=== PATIENT | female | born 1945 | race Two or more races ===

== ENCOUNTER 2024-10-22 09:58 | Inpatient (IN) | payer MEDICARE, MEDICAID, SELFPAY ==
[2024-10-22] VITALS (29 sets, daily range): BP systolic 129–184; BP diastolic 71–139; PULSE 87–117; RESP 15–30; TEMP 36.6–37.1; O2SAT 85–99; BMI 28.1
--- NOTE | 2024-10-22 10:35 | PD.EDRME ---
Rapid Medical Screening Exam [facility] Arrival date/time: 10/22/24 09:58 79-year-old female with a history of hyperlipidemia, hypertension, type 2 diabetes presents to the emergency room with a chief complaint of generalized weakness fatigue, and bilateral lower extremity pain x 1 week that is progressively gotten worse. I have greeted and performed a focused initial assessment of this patient. A comprehensive ED assessment and evaluation of the patient, analysis of all test results, and completion of the medical decision making process will be conducted by additional ED providers. Chief Complaint: Weakness Vital signs: Vital Signs Temperature 98.5 F 10/22/24 10:28 Pulse Rate 96 10/22/24 10:28 Respiratory Rate 19 10/22/24 10:28 Blood Pressure 184/78 H 10/22/24 10:28 Pulse Oximetry (%) 97 10/22/24 10:28 Oxygen Delivery Method Room Air 10/22/24 10:28 Vital signs reviewed by provider: Yes
[2024-10-22 11:06] LABS: Basophils % (Auto) 0 % (0-2.5); Eosinophils % (Auto) 0 % (0-10); Hematocrit 37.4 % (36.0-46.0); Hemoglobin 13.3 g/dL (12.0-16.0); Immature Granulocytes % (Auto) 1 % (0-0); Immature Granulocytes Auto 0.08 Thou/mm3 (0.00-0.00); Lymphocytes % (Auto) 6 % (10-50); Mean Corpuscular HGB Conc 35.6 g/dl (31.0-37.0); Mean Corpuscular Hemoglobin 27.8 pg (25.0-35.0); Mean Corpuscular Volume 78 fL (80-100); Monocytes # (Auto) 0.6 Thou/mm3 (0.0-0.8); Monocytes % (Auto) 4 % (0-12); Neutrophils # (Auto) 13.8 Thou/mm3 (1.8-7.7); Neutrophils % (Auto) 89 % (37-80); Nucleated Red Blood Cell % 0 /100 WBC (0); Platelet Count 313 Thou/mm3 (140-440); Red Blood Count 4.79 Miln/mm3 (4.00-5.20); White Blood Count 15.5 Thou/mm3 (3.6-11.0)
[2024-10-22 11:23] LABS: B-Type Natriuretic Peptide 54 pg/mL (0-100)
[2024-10-22 11:34] LABS: Alanine Aminotransferase 19 U/L (10-49); Albumin, Serum 4.9 gm/dL (3.4-4.8); Albumin/Globulin Ratio 1.8 (1.2-2.2); Alkaline Phosphatase 66 U/L (46-116); Anion Gap 9 (7-16); Aspartate Amino Transferase 31 U/L (0-34); BUN/Creatinine Ratio 23 Ratio (12-20); Bilirubin,Total 1.2 mg/dL (0.3-1.2); Blood Urea Nitrogen 14 mg/dL (9-23); Calcium 9.5 mg/dL (8.3-10.6); Calcium (Corrected) 9.5 mg/dL (8.5-10.1); Carbon Dioxide 24.7 mMol/L (20.0-31.0); Chloride 76 mMol/L (98-107); Creatinine (Component) 0.6 mg/dL (0.6-1.3); Estimated Creatinine Clearance 69.1 mL/min (>60); Globulin 2.8 gm/dL (2.3-3.5); Glucose 215 mg/dL (74-106); Magnesium 1.1 mg/dL (1.6-2.6); Osmolality,Calculated 230 (275-295); Potassium 4.3 mMol/L (3.4-5.1); Total Protein 7.7 gm/dL (5.7-8.2); Troponin I < 0.020 ng/mL (0.0-0.045); eGFR > 60 See Note
[2024-10-22 11:36] LABS: Sodium 110 mMol/L (136-145)
--- NOTE | 2024-10-22 12:24 | EDNOTE_ITS ---
ED General RME/HPI General Chief complaint: Weakness Stated complaint: WEAKNESS Time Seen by Provider: 10/22/24 12:05 Arrival date/time: 10/22/24 09:58 CC: Lower extremity weakness HPI ongoing for the past 3 days, no prior history of similar events denies fever chills chest pain shortness of breath difficulty breathing. Patient is a history of diabetes hypertension hyperlipidemia. Denies falls or altered level of consciousness. RME / HPI RME / HPI narrative: 10/22/24 09:58 79-year-old female with a history of hyperlipidemia, hypertension, type 2 diabetes presents to the emergency room with a chief complaint of generalized weakness fatigue, and bilateral lower extremity pain x 1 week that is progressively gotten worse. I have greeted and performed a focused initial assessment of this patient. A comprehensive ED assessment and evaluation of the patient, analysis of all test results, and completion of the medical decision making process will be conducted by additional ED providers. Related Data Home Medications ?Medication ?Instructions ?Recorded ?Confirmed amlodipine 5 mg tablet 5 mg PO QDAY 10/22/24 10/22/24 empagliflozin 25 mg tablet 25 mg PO QDAY 10/22/24 10/22/24 (Jardiance) glipizide 5 mg tablet 5 mg PO BID 10/22/24 10/22/24 lisinopril 20 1 tab PO DAILY 10/22/24 10/22/24 mg-hydrochlorothiazide 25 mg tablet meclizine 25 mg chewable tablet 25 mg PO BID PRN Dizziness 10/22/24 10/22/24 metformin 1,000 mg tablet 1,000 mg PO QDAY 10/22/24 10/22/24 montelukast 10 mg tablet 10 mg PO QDAY 10/22/24 10/22/24 sennosides 8.6 mg-docusate sodium 1 tab-cap PO BID PRN Constipation 10/22/24 10/22/24 50 mg tablet (Senna Plus) Allergies Allergy/AdvReac Type Severity Reaction Status Date / Time No Known Allergies Allergy Verified 10/22/24 10:01 Review of Systems Review of Systems Narrative Review of Systems: GEN: No fever, no chills, no weight loss EYES: No discharge, no visual changes, no pain HEENT: No ear pain, no congestion, no sore throat PULM: No shortness of breath, no cough, no congestion CV: No chest pain, no dyspnea on exertion, no palpitations GI: No nausea, no vomiting, no diarrhea, no pain, no constipation : No frequency, no urgency, no dysuria MUSC/SKEL: No joint pain, no back pain SKIN: No rash PSYCH: No hallucinations, no depression HEME/LYMPH: No easy bleeding or bruising tendencies NEURO: + weakness, no headache Past Medical History Social History SMOKING STATUS: Never smoker ED Exam Narrative Physical exam: [General: Not in any acute distress Head normocephalic HEENT: Eyes pupils are PERRLA EOMs are intact all other subsystems of HEENT are within acceptable limits Neck is supple nontender Chest equal chest rise nontender to palpation Respiratory: Clear to auscultation no wheezes crackles or rubs CV: Rate rhythm is regular no murmurs rubs or clicks Abdomen is distended secondary to body habitus soft nontender no masses positive bowel sounds all 4 quadrants Back: No CVA tenderness no spinous process tenderness from cervical spine thoracic and lumbar spine Skin: Intact no petechiae rash induration ulceration or crepitus Extremities: Moving all extremity against resistance cap refill less than 2 seconds neurosensory intact Neuro: Awake alert oriented x3 Glascow coma 15 no focal deficits] Course Quality Measures VTE prophylaxis Orders Category Date Time Status Admit to Inpatient Status Routine Admission 10/22/24 13:05 Active Patient Condition Routine Admission 10/22/24 13:05 Ordered EKG (ED ONLY) *Do not use* NOW Care 10/22/24 10:35 Completed Notify provider NEEDED Care 10/22/24 13:05 Active Saline [Insert IV] NOW Care 10/22/24 12:05 Active Consult to Nephrology Stat Cons 10/22/24 13:08 Ordered EKG (ED Only) Stat Exams 10/22/24 10:35 Ordered B-Type Natriuretic Peptide Stat Lab 10/22/24 10:55 Completed CBC Stat Lab 10/22/24 10:55 Completed Comprehensive Metabolic Panel Stat Lab 10/22/24 10:55 Completed Magnesium Stat Lab 10/22/24 10:55 Completed Partial Thromboplastin Time Stat Lab 10/22/24 10:55 Completed Phosphorous Stat Lab 10/22/24 12:06 Completed Prothrombin Time with INR Stat Lab 10/22/24 10:55 Completed Sodium Q1H Lab 10/22/24 13:08 Ordered Sodium Q1H Lab 10/22/24 14:08 Ordered Sodium Q1H Lab 10/22/24 15:08 Ordered Sodium Q1H Lab 10/22/24 16:08 Ordered Sodium Q1H Lab 10/22/24 17:08 Ordered Sodium Q1H Lab 10/22/24 18:08 Ordered Sodium Q1H Lab 10/22/24 19:08 Ordered Sodium Q1H Lab 10/22/24 20:08 Ordered Sodium Q1H Lab 10/22/24 21:08 Ordered Sodium Q1H Lab 10/22/24 22:08 Ordered Sodium Q1H Lab 10/22/24 23:08 Ordered Sodium Stat Lab 10/22/24 12:06 Completed Troponin I Stat Lab 10/22/24 10:55 Completed Urinalysis Stat Lab 10/22/24 10:35 Ordered Magnesium Sulfate 4 GM Ivpb [Magnesium Sulfate Ivpb] Med 10/22/24 12:06 Active 4 gm in 50 ml IV X1 SODIUM CHLORIDE 3%(Hypertonic) [Hypertonic Saline 3%] 1 Med 10/22/24 13:05 Active ,000 ml Pre-Mixed [Pre-mixed Bag] 1 bag IV X1 hydrALAZINE INJ [Apresoline Inj] Med 10/22/24 12:26 Discontinued 20 mg IV X1 ONE Code Status Routine Oth 10/22/24 13:05 Ordered Vital Signs Vital signs: Vital Signs Temperature 98.5 F 10/22/24 10:28 Pulse Rate 96 10/22/24 10:28 Respiratory Rate 19 10/22/24 10:28 Blood Pressure 184/78 H 10/22/24 10:28 Pulse Oximetry (%) 97 10/22/24 10:28 Oxygen Delivery Method Room Air 10/22/24 10:28 [facility] Patient data External records reviewed:: [facility] previous records Clinical information provided by:: patient and family Social determinants that could affect healthcare access:: none Patient has the following chronic illnesses:: Diabetes hypertension hyperlipidemia How is presenting disease/condition affected by chronic disease/condition?: u neffected by Evaluation data The following diagnostics were reviewed and interpreted by me:: lab results, radiology exam(s) and EKG tracing(s) Lab and/or radiology exams considered but not ordered:: CBC shows mild leukocytosis of 15.5 and H&H of 13.3 and 37.4 respectively platelets of 313 Coags within with acceptable limits CMP shows sodium of 110 potassium of 4.3 chloride of 76, CO2 of 24.7 BUN of 14 creatinine of 0.6 glucose of 215 note: The sodium was confirmed by separate draw at 110. Troponin is negative, BNP is negative Interpretation Summary: Critical low sodium, patient's case discussed with Dr. Wharton, repulping supervisor who agrees to accept the patient for admission. Patient is agreement with this plan. Medications Medications considered but not ordered:: None Medication administrations:: Medication Administration History Magnesium Sulfate (Magnesium Sulfate Ivpb) 4 gm in 50 mls @ 12.5 mls/hr IV X1 ONE Stop: 10/22/24 16:05 Last Admin: 10/22/24 12:49 Dose: 12.5 mls/hr Documented By: GM Sodium Chloride 1,000 ml/ IV (Miscellaneous Supplies) 1,000 mls @ 30 mls/hr IV X1 ONE Stop: 10/23/24 22:24 Discontinued Medications Hydralazine HCl (Hydralazine Inj 20 Mg/Ml Vial) 20 mg IV X1 ONE Stop: 10/22/24 12:27 Last Admin: 10/22/24 12:40 Dose: 20 mg Documented By: None Consultations Consultation(s) initiated? (list below): No Diagnosis Differential Diagnosis ED Complaint MDM: Hyponatremia electrolyte imbalance dehydration Most likely diagnosis given after review of the tests above:: Acute hyponatremia Admission Indicated Admission indicated?: indicated Explain why admission is indicated or not indicated:: Requires further medical management Admission Request Was there a request for admission?: No Disposition Plan Disposition Plan: Admit Medical Decision Making Differential Diagnosis Differential Diagnosis: Hyponatremia electrolyte imbalance dehydration Lab Data 10/22/24 10:55 10/22/24 12:06 Labs: Lab Results 10/22/24 10/22/24 Range/Units 10:55 12:06 WBC 15.5 H (3.6-11.0) Thou/mm3 RBC 4.79 (4.00-5.20) Miln/mm3 Hgb 13.3 (12.0-16.0) g/dL Hct 37.4 (36.0-46.0) % MCV 78 L (80-100) fL MCH 27.8 (25.0-35.0) pg MCHC 35.6 (31.0-37.0) g/dl RDW Std Deviation 35.0 L (36.4-46.3) fL Plt Count 313 (140-440) Thou/mm3 Neut % (Auto) 89 H (37-80) % Lymph % (Auto) 6 L (10-50) % [place] % (Auto) 4 (0-12) % Eos % (Auto) 0 (0-10) % Baso % (Auto) 0 (0-2.5) % Neut # (Auto) 13.8 H (1.8-7.7) Thou/mm3 Lymph # (Auto) 1.0 (1.0-4.8) Thou/mm3 [place] # (Auto) 0.6 (0.0-0.8) Thou/mm3 Eos # (Auto) 0.0 (0.0-0.5) Thou/mm3 Baso # (Auto) 0.0 (0.0-0.2) Thou/mm3 Immature Gran # (Auto) 0.08 H (0.00-0.00) Thou/mm3 Absolute Nucleated RBC 0.00 (0.00-0.00) Thou/mm3 Immature Gran % 1 H (0-0) % Nucleated RBC % 0 (0) /100 WBC PT 11.5 (9.0-12.2) Seconds INR 1.1 (0.9-1.3) APTT 25.5 (22.0-36.0) Seconds Sodium 110 L* 110 L* (136-145) mMol/L Potassium 4.3 (3.4-5.1) mMol/L Chloride 76 L* (98-107) mMol/L Carbon Dioxide 24.7 (20.0-31.0) mMol/L Anion Gap 9 (7-16) BUN 14 (9-23) mg/dL Creatinine 0.6 (0.6-1.3) mg/dL Estim Creat Clear Calc 69.1 (>60) mL/min eGFR > 60 (60 - ) See Note BUN/Creatinine Ratio 23 H (12-20) Ratio Glucose 215 H (74-106) mg/dL Calculated Osmolality 230 L (275-295) Calcium 9.5 (8.3-10.6) mg/dL Corrected Calcium 9.5 (8.5-10.1) mg/dL Phosphorus 2.8 (2.4-5.1) mg/dL Magnesium 1.1 L (1.6-2.6) mg/dL Total Bilirubin 1.2 (0.3-1.2) mg/dL AST 31 (0-34) U/L ALT 19 (10-49) U/L Alkaline Phosphatase 66 (46-116) U/L Troponin I < 0.020 (0.0-0.045) ng/mL B-Natriuretic Peptide 54 (0-100) pg/mL Total Protein 7.7 (5.7-8.2) gm/dL Albumin 4.9 H (3.4-4.8) gm/dL Globulin 2.8 (2.3-3.5) gm/dL Albumin/Globulin Ratio 1.8 (1.2-2.2) Discharge Plan Plan Patient Disposition: Admit Acute Care w/in Hospital Patient condition on transfer: Stable Prescriptions/Referrals Prescriptions/Med Rec: No Action sennosides-docusate sodium [Senna Plus] 8.6-50 mg Tablet 1 tab-cap PO BID PRN (Reason: Constipation) amlodipine 5 mg Tablet 5 mg PO QDAY metformin 1,000 mg Tablet 1,000 mg PO QDAY Rx Instructions: take with meal lisinopril-hydrochlorothiazide 20-25 mg Tablet 1 tab PO DAILY montelukast 10 mg Tablet 10 mg PO QDAY glipizide 5 mg Tablet 5 mg PO BID meclizine 25 mg Tablet,Chewable 25 mg PO BID PRN (Reason: Dizziness) Jardiance 25 mg Tablet 25 mg PO QDAY Referrals: Heri Roberts MD [Primary Care Provider] - In 1 week Problem List Clinical Impression: Acute hyponatremia Patient/Caregiver Discharge Instructions Print Language: Uzbek Stand Alone Forms: Lesly Award Info., Patient Portal Info Letter PA/PROPERTY MAINTENANCE SUPERVISOR Supervising Physician PA/PROPERTY MAINTENANCE SUPERVISOR Supervising Physician: Ousmane Guajardo ENP
[2024-10-22] MEDS: hydrALAZINE INJ 20 MG/ML VIAL IV (12:40)
[2024-10-22] MEDS: Magnesium Sulfate 4 GM Ivpb 4 GM/50 ML BAG IV (12:49)
[2024-10-22 12:56] LABS: Phosphorous 2.8 mg/dL (2.4-5.1)
[2024-10-22 12:58] LABS: Sodium 110 mMol/L (136-145)
[2024-10-22 13:00] LABS: INR 1.1 (0.9-1.3); Partial Thromboplastin Time 25.5 Seconds (22.0-36.0); Prothrombin Time 11.5 Seconds (9.0-12.2)
--- NOTE | 2024-10-22 13:00 | PC.NURSE ---
Dr. Wharton at bedside assessing and talking to pt.
--- NOTE | 2024-10-22 13:13 | PC.NURSE ---
Pt's daughter, Sherrie Gallegos,
[2024-10-22] MEDS: SODIUM CHLORIDE 3%(Hypertonic) 500 ML in PRE-MIXED 1 BAG 30 ML IV (13:33)
--- NOTE | 2024-10-22 13:46 | PC.NURSE ---
SPOKE TO DR. NGUYEN AMD MADE AWARE PT STARTING TO TREMBLE AND REPORTS FEELING HOT. SYMPTOMS STARTED AROUND THIS TIME. PT HERE FOR CORRECTION OF SEVERE HYPONATREMIA. PER DR. NGUYEN, NO NEW ORDERS AT THIS TIME; PLEASE CONTINUE WITH CORRECTION OF PT'S SODIUM LEVELS.
--- NOTE | 2024-10-22 14:02 | EKG_ITS ---
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
--- NOTE | 2024-10-22 14:05 | XR_ITS ---
Examination: AP chest single view Technique one AP portable sitting chest single view Exam date and time: October 22, 2024 1430 hours INDICATIONS: Shortness of breath today. FINDINGS: No major cardiac enlargement Mild accentuation basilar bronchovascular markings No lobar pneumonia Prominent osteopenia IMPRESSION: Mild basilar bronchitis pattern
[2024-10-22] MEDS: HEPARIN SOD INJ 5000 UNIT/ML VIAL SC (14:34)
--- NOTE | 2024-10-22 14:55 | ESCONSULT_ITS ---
HPI Data of Consult Consult date: 10/22/24 Requesting Physician: Srini Wharton MD Admitting Provider: Srini Wharton MD Attending Provider: Srini Wharton MD Primary Care Provider: Heri Roberts MD Consult Narrative Reason for consult: Severe Hyponatremia History of present illness: HPI: A 79-year-old female patient with past medical history of hypertension, diabetes mellitus, hyperlipidemia, presented to the ED due to generalized weakness for 3 days associated with decreased oral intake and excessive urination. Patient reported that his symptoms started gradually however it kept worsening over time. Today she went to her PCP however as per the daughter he did not do any blood work for the patient for that reason they decided to come to the ED. The daughter denied any episodes of seizure or loss of consciousness denied any fall down however she reported that for the past few days she started to feel dizzy. Denied any vomiting or diarrhea, denied any new medications added to her regimen. Home medications: Metformin, glipizide, lisinopril/hydrochlorothiazide, Jardiance, meclizine, montelukast, senna, amlodipine ED course: At the ED patient blood pressure was elevated 184/78, she was given 1 dose of hydralazine 20 mg IV. Heart rate in the high normal range between 90s and 110s, normal sinus. WBC was elevated 15, hemoglobin stable at 13 and sodium was found to be 110 repeat labs to rule out any artifact also came back 110. Patient was started at the ED with 30 mL/h 3 percent NS. cc:: cc: Srini Wharton MD Review of Systems Review of Systems Systems Reviewed: All systems reviewed, normal except as documented Past Medical History Past Medical History NEUROLOGIC: Negative Neurological Disorders, Cerebrovascular Accident, Transient Ischemic Attacks (TIA), Dementia, Alzheimer's Disease, Parkinson's Disease, Brain Tumor, Meningitis, Seizures, Epilepsy, Multiple Sclerosis, Cerebral Palsy, Amyotrophic Lateral Sclerosis (ALS/Aby Gehrig's), Guillain-Hico Syndrome, Spina Bifida, Paralysis, Peripheral Neuropathy, De Oliveira's Palsy, Subdural Hematoma, Migraine, Head Trauma, Spinal Cord Injury or Traumatic Brain Injury CARDIAC: Positive Hypercholesterolemia and Hypertension; Negative Cardiac Disorders, Myocardial Infarction, Cardiac Arrhythmia, Atrial Fibrillation, Angina, Heart Murmur, Coronary Artery Disease, Atherosclerotic Heart Disease, Peripheral Vascular Disease, Aneurysm, Congestive Heart Failure, Congenital Heart Disease, Valvular Heart Disease, Rheumatic Fever, Cardiomyopathy, Edema, Pericarditis, Cellulitis, Deep Vein Thrombosis, Hypotension or Varicose Veins RESPIRATORY: Positive Asthma; Negative Respiratory Disorders, Chronic Obstructive Pulmonary Disease (COPD), Bronchitis, Emphysema, Pneumonia, Pulmonary Fibrosis, Cystic Fibrosis, Tuberculosis, Pulmonary Embolism, Pulmonary Edema or Sleep Apnea GASTROINTESTINAL: Negative Gastrointestinal Disorders, Cirrhosis, Celiac Disease, Gall Bladder Disease, Gastrointestinal Bleed, Esophageal Varices, Timmons's Esophagus, Colitis, Ulcerative Colitis, Diverticulitis, Diverticulosis, Ulcer, Irritable Bowel, Crohn's Disease, Obstructive Bowel, Hiatal Hernia, Hemorrhoids, Gastroesophageal Reflux Disease, Polyps or Obesity GENITOURINARY: Negative Genitourinary Disorders, Chronic Kidney Disease, Renal Disease, Kidney Stones, Polycystic Kidney Disease, Neurogenic Bladder, Inguinal Hernia, Dialysis or Benign Prostatic Hyperplasia REPRODUCTIVE: Negative Endometriosis, Genital Herpes, Gonorrhea, Pelvic Inflammatory Disease, Previous Pregnancies, Syphilis or Uterine Prolapse MUSCULOSKELETAL: Negative Musculoskeletal Disorders, Muscular Dystrophy, Myasthenia Gravis, Marfan's Syndrome, Arthritis, Rheumatoid Arthritis, Osteoporosis, Degenerative Disk Disease, Gout, Scoliosis, Carpal Tunnel Syndrome, Fibromyalgia, Fractures, Degenerative Joint Disease, Osteomyelitis or Poliovirus ENT: Negative History of ENT Problems, Cataracts, Glaucoma, Blind, Retinal Detachment, Macular Degeneration, Ear Infection, Deafness, Head Trauma or Eye Prosthesis ENDOCRINE: Positive Endocrine Disorders and Diabetes Mellitus Type 2; Negative Diabetes Mellitus Type 1, Hypoglycemia, Ishpeming's Syndrome, [place]ue[place]'s Disease, Hyperthyroidism, Hypothyroidism, Parathyroid Disease, Pituitary Disease, Systemic Lupus Erythematosus, Syndrome of Inappropriate Antidiuretic Hormone (SIADH), Adrenal Disease or Graves' Disease HEMATOLOGIC: Positive Blood Disorders and Anemia; Negative Leukemia, Hemophilia, Thalassemia, Sickle Cell Disease or Clotting Problems PSYCHO/SOCIAL: Positive Depression; Negative Psychiatric Problems, Schizophrenia, Recreational Drug Use, Bipolar Disorder, Anxiety, Behavior Problems, Self-Mutilation, Attention Deficit Disorder, Attention Deficit Hyperactivity Disorder, Post Traumatic Stress Disorder or Eating Disorder OTHER HISTORY: Negative Autoimmune Disease, Autism or Organ Transplant Family History FAMILY HISTORY: Negative Family Psychiatric Problems, Family Respiratory Disorders, Family Cardiac Disorders, Family Gastrointestinal Problems, Family Genitourinary Problems, Family Reproductive Disorders, Family Musculoskeletal Disorders, Family Cancer, Family Surgery or Family Anesthesia Reaction Surgical History SURGICAL: Negative Cardiac Surgery, Open Heart Surgery, Coronary Artery Bypass Graft, Valve Replacement, Vascular Surgery, Coronary Stent, Cardiac Catheterization, Pacemaker, Angiogram, Auto Implanted Cardiovert Defib, Carotid Endarterectomy, Endocrine Surgery, Thyroidectomy, Ear Surgery, Tympanostomy Tube, Eye Surgery, Nose Surgery, Oral Surgery, Tonsillectomy, Adenoidectomy, Cochlear Implant, Corneal Transplant, Throat Surgery, Abdominal Surgery, Tracheostomy, Gastric Bypass Surgery, Gastrostomy, Bowel Surgery, Nephrectomy, Bladder Sling, Ureteral Stent, Transurethral Resection, Joint Replacement, of Shoulder Sx, Amputation, Knee Sx, Hip Sx, Open Reduction Internal Fixation, Arthroscopy, of Back Surgery, Neurologic Surgery, Brain Shunt, Mastectomy, Lumpectomy, Hysterectomy, Tubal Ligation, Section, Organ Transplant or ESWL Social History SMOKING STATUS: Never smoker SECOND HAND EXPOSURE: No Exam Vital Signs Temp Pulse Resp BP Pulse Ox O2 Del Method 98.3 F 104 H 19 154/81 H 97 Room Air 10/22/24 14:05 10/22/24 14:10/22/24 14:10/22/24 14:10/22/24 14:10/22/24 14:05 Narrative Exam GEN: Bengali speaker, AOx3, able to speak full sentences HEENT: NC/AC, oral mucosa moist, neck supple CVS: RRR, S1-S2 present, no murmurs appreciated RESP: Faint wheezing, good air entry bilaterally. GI: soft,non distended, non tender, NBS MSK: Generalized weakness noticed however able to move all 4 limbs, no lower extremity edema SKIN: warm and dry HEAD OF DIGITAL ADVERTISING & INTEGRATION: No focal neurological deficit, CN II-XII and Sensation grossly intact. Results Labs 10/23/24 04:45 10/23/24 19:00 Labs: Short CBC 10/22/24 Range/Units 10:55 WBC 15.5 H (3.6-11.0) Thou/mm3 Hgb 13.3 (12.0-16.0) g/dL Hct 37.4 (36.0-46.0) % Plt Count 313 (140-440) Thou/mm3 BMP 10/22/24 10/22/24 10:55 12:06 Sodium 110 L* 110 L* Potassium 4.3 Chloride 76 L* Carbon Dioxide 24.7 BUN 14 Creatinine 0.6 Glucose 215 H Calcium 9.5 Cardiac Enzymes 10/22/24 Range/Units 10:55 Troponin I < 0.020 (0.0-0.045) ng/mL Liver Function 10/22/24 Range/Units 10:55 Total Bilirubin 1.2 (0.3-1.2) mg/dL AST 31 (0-34) U/L ALT 19 (10-49) U/L Alkaline Phosphatase 66 (46-116) U/L Albumin 4.9 H (3.4-4.8) gm/dL Quality Measures Quality Measures VTE prophylaxis Advance care planning discussed with:: patient and child Medications Home Medications and Allergies Home Medications ?Medication ?Instructions ?Recorded ?Confirmed ?Type amlodipine 5 mg tablet 5 mg PO QDAY 10/22/24 10/22/24 History empagliflozin 25 mg tablet 25 mg PO QDAY 10/22/24 10/22/24 History (Jardiance) glipizide 5 mg tablet 5 mg PO BID 10/22/24 10/22/24 History lisinopril 20 1 tab PO DAILY 10/22/24 10/22/24 History mg-hydrochlorothiazide 25 mg tablet meclizine 25 mg chewable tablet 25 mg PO BID PRN Dizziness 10/22/24 10/22/24 History metformin 1,000 mg tablet 1,000 mg PO QDAY 10/22/24 10/22/24 History montelukast 10 mg tablet 10 mg PO QDAY 10/22/24 10/22/24 History sennosides 8.6 mg-docusate sodium 1 tab-cap PO BID PRN Constipation 10/22/24 10/22/24 History 50 mg tablet (Senna Plus) Allergies Allergy/AdvReac Type Severity Reaction Status Date / Time No Known Allergies Allergy Verified 10/22/24 10:01 Visit Medications Amlodipine Besylate (Amlodipine Besylate 5 Mg Tablet) 5 mg PO QDAY [facility] Stop: 11/22/24 08:59 Dextrose (Dextrose 50%-Water Inj 50 Ml Syringe) 25 ml IV Q15MIN PRN PRN Reason: BG 50-70 responsive npo pt Stop: 11/21/24 14:01 Dextrose (Dextrose 50%-Water Inj 50 Ml Syringe) 50 ml IV Q15MIN PRN PRN Reason: BG <50 OR BG <70 & pt unresponsive Stop: 11/21/24 14:01 Glucagon (Glucagon Inj 1 Mg Vial) 1 mg IM Q15MIN PRN PRN Reason: BG <70, and no IV access Heparin Sodium (Porcine) (Heparin Sod Inj 5000 Unit/Ml Vial) 5,000 unit SC Q12H [facility] Stop: 11/05/24 14:14 Last Admin: 10/22/24 14:34 Dose: 5,000 unit Magnesium Sulfate (Magnesium Sulfate Ivpb) 4 gm in 50 mls @ 12.5 mls/hr IV X1 ONE Stop: 10/22/24 16:05 Last Admin: 10/22/24 12:49 Dose: 12.5 mls/hr Sodium Chloride 500 ml/ IV (Miscellaneous Supplies) 500 mls @ 30 mls/hr IV X1 ONE Stop: 10/23/24 05:44 Last Admin: 10/22/24 13:33 Dose: 30 mls/hr Insulin Human Lispro (Insulin Lispro (Admelog) 1 Unit/0.01 Ml Unit) 0 unit SC [facility]; Protocol Stop: 11/21/24 16:59 Ondansetron HCl (Ondansetron Inj 2 Mg/Ml Inj 2 Ml) 4 mg IV Q6H PRN; Protocol PRN Reason: NAUSEA OR VOMITING Stop: 11/21/24 14:01 Sennosides (Senna/Docusate Sod 1 Tab Tablet) 1 tab PO BID PRN; Protocol PRN Reason: Constipation Stop: 11/21/24 14:06 Discontinued Medications Hydralazine HCl (Hydralazine Inj 20 Mg/Ml Vial) 20 mg IV X1 ONE Stop: 10/22/24 12:27 Last Admin: 10/22/24 12:40 Dose: 20 mg Assessment & Plan Plan Summary:A 79-year-old female patient with past medical history of hypertension, diabetes mellitus, hyperlipidemia, presented to the ED due to generalized weakness for 3 days associated with decreased oral intake and excessive urination. Patient reported that his symptoms started gradually however it kept worsening over time. Patient was admitted to the ICU for severe hyponatremia. Assessment and plan #Generalized body weakness most likely secondary to severe hyponatremia #Severe hypoosmolar hyponatremia #Mild hyperglycemia #Hypomagnesemia On presentation patient was found to have generalized weakness, No neurological symptoms no seizures No signs of fluid overload Sodium level found to be 110 no previous labs in her chart, Blood glucose 215, serum osmolality 230, magnesium level 1.1 Plan ? Agree on starting the patient on hypertonic saline 3% at rate of 30 mL/h, goal of sodium level 116 mEq to be achieved over 24 hrs. - Hold NS 3% if Na level overcorrected and inform MD multimedia production assistant ? Sodium checks every hour ? Hold home medications including hydrochlorothiazide/lisinopril, hold all oral antidiabetic medications including Jardiance ? Neurochecks every 2 hours ? Seizures precautions ? Strict in and out ? Replete other electrolytes as needed #Hyperglycemia #Hypertension urgency #History of diabetes mellitus Plan ? Follow-up with the primary team recommendations. - Patient's plan and care discussed with my attending, Dr. Mili Frank MD Internal Medicine PGY-2 Attending Provider Attestation/Addendum Patient seen and examined with resident physician Dr. Hernandez. Note reviewed, agree with findings and recommendations. Patient presented with severe symptomatic hyponatremia. Hypertonic saline at 40 mL/h started. Will monitor serum sodium every 8 hourly with no more than 6 mEq rise in the next 24 hours. Plan of care discussed with ICU team. Thank you Dr. Wharton for allowing me to participate in the care of Mr. Royal
[2024-10-22 15:06] LABS: Sodium 108 mMol/L (136-145)
[2024-10-22 15:27] LABS: Sodium 108 mMol/L (136-145)
[2024-10-22] MEDS: SODIUM CHLORIDE 3%(Hypertonic) 500 ML in PRE-MIXED 1 BAG 40 ML IV (15:44)
[2024-10-22 17:13] LABS: Sodium 109 mMol/L (136-145)
[2024-10-22 17:15] LABS: Cardiac Risk Estimate 2.5 RATIO (3.7-5.6); Cholesterol 159 mg/dL (132-200); HDL Cholesterol 64 mg/dL (40-60); LDL Cholesterol,Calculated 78 mg/dL (0-130); Triglycerides 87 mg/dL (30-150); Uric Acid 3.1 mg/dL (3.1-7.8)
[2024-10-22] MEDS: INSULIN LISPRO (AdmeLOG) 1 UNIT/0.01 ML UNIT SC ×2 (17:43→20:09)
[2024-10-22] MEDS: hydrALAZINE INJ 20 MG/ML VIAL 15 MG IV (17:46)
[2024-10-22 18:18] LABS: Sodium 111 mMol/L (136-145)
--- NOTE | 2024-10-22 18:44 | ESHP_ITS ---
Documentation for date of: 10/22/24 [facility] History of Present Illness Chief complaint: generalized weakness History of present illness: Patient is 79 years old Estonian-speaking female with past medical history of hypertension, type 2 diabetes mellitus, hyperlipidemia presented to the ED complaining of worsening weakness and dizziness. Patient cannot recall when she started developing the symptoms but it was worsening over time. She reported that she also developed significant thirst and was drinking plenty of water daily, her urine output has significantly increased too. Patient denied any fever, chills, changing in vision or hearing, headache, dysuria symptoms, shortness of breath. Patient denies any falls or trauma. On admission patient hypertensive with blood pressure 184/78 and given hydralazine IV in the ED. Labs showed WBCs 15.5, sodium 110, chloride 76, glucose 215, osmolarity 230, uric acid 3.1, magnesium 1.1, phosphorus 2.8. Troponin I negative. Chest x-ray showed bronchitis pattern. EKG showed sinus tachycardia with RBBB. Urinalysis pending. PMH: hypertension, type 2 diabetes mellitus, hyperlipidemia. PSH: None. SH: Denies smoking tobacco, drink alcohol or using illicit drugs. FH: None. Allergies: NKA Medications: Jardiance, glipizide, lisinopril, hydrochlorothiazide, meclizine, metformin, montelukast, senna plus. Review of Systems Review of Systems Narrative Review of Systems: General: + Increased thirst, generalized weakness. Denies weight loss, fever and chills. HEENT: Denies changes in vision and hearing. Resp: Denies SOB, cough and wheezing. CVS: Denies palpitations and CP. GI: Denies abdominal pain, nausea, vomiting and diarrhea. : + Polyuria. Denies dysuria. MSK: Denies myalgia and joint pain. Denies rash and pruritus. Neuro: + Chronic dizziness. Denies headache and syncope. Psych: Denies recent changes in mood. Denies anxiety and depression. Exam Vital Signs Temp Pulse Resp BP Pulse Ox O2 Del Method 98.8 F 115 H 15 184/139 H 96 Room Air 10/22/24 18:02 10/22/24 18:20 10/22/24 18:20 10/22/24 17:46 10/22/24 18:20 10/22/24 15:00 Narrative Exam Gen: Well-developed and well-nourished elderly female. HEENT: NCAT, PERRLA, EOMI, MMM, anicteric conjunctivae. CVS: normal S1 and S2. Regular tachycardia. No M/R/G. Resp: Decreased breath sounds B/L. No rhonchi, rales, crackles or wheezing. Abd: soft, obese, non-tender, non-distended. BS+ in all 4 quadrants. MSK: Good ROM in BUE & BLE. No edema or rash. Neuro: CN II-XII grossly intact. Strength 5/5 in BUE & BLE. Alert and oriented x3. Psych: appropriate mood and affect. Results: Labs 10/23/24 04:45 10/23/24 03:21 Labs: Short CBC 10/22/24 Range/Units 10:55 WBC 15.5 H (3.6-11.0) Thou/mm3 Hgb 13.3 (12.0-16.0) g/dL Hct 37.4 (36.0-46.0) % Plt Count 313 (140-440) Thou/mm3 BMP 10/22/24 10/22/24 10/22/24 10:55 12:06 14:10 Sodium 110 L* 110 L* 108 L* Potassium 4.3 Chloride 76 L* Carbon Dioxide 24.7 BUN 14 Creatinine 0.6 Glucose 215 H Calcium 9.5 10/22/24 10/22/24 10/22/24 15:03 16:09 17:07 Sodium 108 L* 109 L* 111 L* Potassium Chloride Carbon Dioxide BUN Creatinine Glucose Calcium Cardiac Enzymes 10/22/24 Range/Units 10:55 Troponin I < 0.020 (0.0-0.045) ng/mL Liver Function 10/22/24 Range/Units 10:55 Total Bilirubin 1.2 (0.3-1.2) mg/dL AST 31 (0-34) U/L ALT 19 (10-49) U/L Alkaline Phosphatase 66 (46-116) U/L Albumin 4.9 H (3.4-4.8) gm/dL Quality Measures Quality Measures VTE prophylaxis Advance care planning discussed with:: patient Medications Home Medications and Allergies Home Medications ?Medication ?Instructions ?Recorded ?Confirmed ?Type amlodipine 5 mg tablet 5 mg PO QDAY 10/22/24 10/22/24 History empagliflozin 25 mg tablet 25 mg PO QDAY 10/22/24 10/22/24 History (Jardiance) glipizide 5 mg tablet 5 mg PO BID 10/22/24 10/22/24 History lisinopril 20 1 tab PO DAILY 10/22/24 10/22/24 History mg-hydrochlorothiazide 25 mg tablet meclizine 25 mg chewable tablet 25 mg PO BID PRN Dizziness 10/22/24 10/22/24 History metformin 1,000 mg tablet 1,000 mg PO QDAY 10/22/24 10/22/24 History montelukast 10 mg tablet 10 mg PO QDAY 10/22/24 10/22/24 History sennosides 8.6 mg-docusate sodium 1 tab-cap PO BID PRN Constipation 10/22/24 10/22/24 History 50 mg tablet (Senna Plus) Allergies Allergy/AdvReac Type Severity Reaction Status Date / Time No Known Allergies Allergy Verified 10/22/24 10:01 Visit Medications Amlodipine Besylate (Amlodipine Besylate 5 Mg Tablet) 5 mg PO QDAY [facility] Stop: 11/22/24 08:59 Dextrose (Dextrose 50%-Water Inj 50 Ml Syringe) 25 ml IV Q15MIN PRN PRN Reason: BG 50-70 responsive npo pt Stop: 11/21/24 14:01 Dextrose (Dextrose 50%-Water Inj 50 Ml Syringe) 50 ml IV Q15MIN PRN PRN Reason: BG <50 OR BG <70 & pt unresponsive Stop: 11/21/24 14:01 Glucagon (Glucagon Inj 1 Mg Vial) 1 mg IM Q15MIN PRN PRN Reason: BG <70, and no IV access Heparin Sodium (Porcine) (Heparin Sod Inj 5000 Unit/Ml Vial) 5,000 unit SC Q12H [facility] Stop: 11/05/24 14:14 Last Admin: 10/22/24 14:34 Dose: 5,000 unit Sodium Chloride 500 ml/ IV (Miscellaneous Supplies) 500 mls @ 40 mls/hr IV X1 ONE Stop: 10/23/24 01:48 Last Admin: 10/22/24 15:44 Dose: 40 mls/hr Insulin Human Lispro (Insulin Lispro (Admelog) 1 Unit/0.01 Ml Unit) 0 unit SC [facility]; Protocol Stop: 11/21/24 16:59 Last Admin: 10/22/24 17:43 Dose: 4 unit Ondansetron HCl (Ondansetron Inj 2 Mg/Ml Inj 2 Ml) 4 mg IV Q6H PRN; Protocol PRN Reason: NAUSEA OR VOMITING Stop: 11/21/24 14:01 Sennosides (Senna/Docusate Sod 1 Tab Tablet) 1 tab PO BID PRN; Protocol PRN Reason: Constipation Stop: 11/21/24 14:06 Discontinued Medications Hydralazine HCl (Hydralazine Inj 20 Mg/Ml Vial) 20 mg IV X1 ONE Stop: 10/22/24 12:27 Last Admin: 10/22/24 12:40 Dose: 20 mg Hydralazine HCl (Hydralazine Inj 20 Mg/Ml Vial) 15 mg IV X1 PRN PRN Reason: SBP >180 or DBP >110 Last Admin: 10/22/24 17:46 Dose: 15 mg Magnesium Sulfate (Magnesium Sulfate Ivpb) 4 gm in 50 mls @ 12.5 mls/hr IV X1 ONE Stop: 10/22/24 16:05 Last Admin: 10/22/24 12:49 Dose: 12.5 mls/hr Sodium Chloride 500 ml/ IV (Miscellaneous Supplies) 500 mls @ 30 mls/hr IV X1 ONE Stop: 10/23/24 05:44 Last Admin: 10/22/24 13:33 Dose: 30 mls/hr Assessment & Plan Plan Patient is 79 years old Estonian-speaking female with past medical history of hypertension, type 2 diabetes mellitus, hyperlipidemia presented to the ED complaining of worsening weakness and dizziness, was found to have severe hyponatremia of 110 and was admitted to ICU for further management. Neuro: #Chronic dizziness. Patient has chronic dizziness for many years, reason is unknown, was previously prescribed meclizine. Her dizziness has worsened within the last several weeks. Cardiovascular: #History of hypertension. On admission blood pressure 184/78. Patient given hydralazine 10 mg IV x 1 for hypertension. Plan: -Hydralazine IV as needed. -Home amlodipine was resumed. -Home lisinopril hydrochlorothiazide was held. Respiratory: No active problem. Gastrointestinal: No active problem. Renal: #Severe hypoosmolar hyponatremia. #Hypomagnesemia. On admission sodium 110, potassium 4.3, chloride 76, glucose 215, uric acid 3.1, BUN 14, magnesium 1.1, calculated osmolarity 230. Patient reports polyuria and polydipsia. Patient is on lisinopril hydrochlorothiazide at home. Plan: -Started on hypertonic saline 30 cc/h, increased to 40 cc/h per nephrology recommendation. -Urinalysis, urine osmolarity, electrolytes and creatinine ordered. -Fluid restriction 1.5 L daily. -Lipid panel is ordered. -Strict ROZ. -Nephrology is following. Endocrine: #History of type 2 diabetes mellitus. At home takes Jardiance, glipizide and metformin. On admission glucose 202. Plan: -Medications held. -Started on sliding scale insulin. -Daily Accu-Cheks. -Hypoglycemia protocol in place. -Pending hemoglobin A1c. Infectious Disease: Patient has elevated WBCs of 15.5 on admission, chest x-ray is negative for pneumonia. Patient denied any fever or chills. Urinalysis pending. Hematology/Oncology: No active problem. Diet: Carb consistent diet with fluid restriction 1.5 L. DVT prophylaxis: Heparin. GI prophylaxis: None. Code status: Full code. Disposition: ICU for management of hyponatremia. Plan of care discussed with ICU attending Dr. Wharton. Jonathan Benton MD, PGY 2. Disclaimer: This note was dictated by speech recognition. Minor errors in sharepoint solutions architect may be present due to voice recognition software. Attending Provider Attestation/Addendum Patient seen and examined with above resident, Jonathan Benton MD. I agree with the findings, assessment, and plan of care as documented except for any differences below. Patient presents with weakness/dizziness. Patient found to have severe hyponatremia. No focal neurologic deficits or presence of seizure activity. However serum sodium as low as 108. Will need to be admitted to ICU for close monitoring with serial sodium checks to ensure avoidance of overcorrection and its association with with pontine demyelination. Patient also had significant risk given her age. She appears euvolemic on examination. Will send urine osmolarity and lites to help discern etiology of SIADH versus polydipsia. She reports that she has been drinking large amounts of volume but this is unlikely by itself to lead to such severe hyponatremia. Discussion with nephrology, will start on hypertonic saline with goal to reach 114 to 116 x 11 a.m. tomorrow. Maintain in the ICU until she reaches a serum sodium of 120 consistently. Chest x-ray does not show any intraparenchymal lesion that would lead to SIADH. No evidence or history suggestive of malignancy or paraneoplastic syndrome. Patient notably is on hydrochlorothiazide as a combination pill which may lead to this as well. She has been on meclizine chronically for dizziness though this may be the early manifestation of her hyponatremia. Total critical care time: I personally spent 35 minutes for review of physiologic parameters, directing plan of care throughout the day, coordination of care with other subspecialties. This is exclusive of time spent teaching housestaff or performing any separate billable procedures. Patient continues to require critical care services for severe hyponatremia and remains at risk for further morbidity and mortality associated with rapid neurologic decompensation. Additionally needs close monitoring morning available in the intensive care unit for serial labs to ensure avoidance of overcorrection.
[2024-10-22 18:45] LABS: Sodium 111 mMol/L (136-145)
[2024-10-22 19:33] LABS: Sodium 112 mMol/L (136-145)
[2024-10-22] MEDS: ACETAMINOPHEN 500 MG TABLET 1000 MG PO (19:42)
[2024-10-22] MEDS: MELATONIN 3 MG TABLET PO (20:09)
[2024-10-22 20:33] LABS: Sodium 113 mMol/L (136-145)
[2024-10-22 21:42] LABS: Sodium 113 mMol/L (136-145)
[2024-10-22 22:48] LABS: Collection Type, Urine Clean Catch
[2024-10-22 22:58] LABS: Sodium 114 mMol/L (136-145)
[2024-10-22 23:29] LABS: Chloride,Urine Random 45.4 mMol/L (55.0-125.0); Creatinine,Random Urine 127 mg/dL (30-125); Potassium,Urine Random 55 mMol/L (12-62); Sodium,Urine Random 41.1 mMol/L (20.0-110.0)
[2024-10-23] VITALS (34 sets, daily range): BP systolic 90–177; BP diastolic 55–101; PULSE 77–110; RESP 13–27; TEMP 36.3–37.1; O2SAT 95–99; BMI 27.8
[2024-10-23 00:01] LABS: Sodium 114 mMol/L (136-145)
[2024-10-23 00:17] LABS: Bacteria,Urine 1+; Bilirubin,Urine Negative (Negative); Blood,Urine 3+ (Negative); Budding Yeast,Urine Present; Color,Urine Yellow (Lt Yel-Yel); Glucose, Urine Trace (Negative); Ketones,Urine 2+ (Negative); Leukocyte Esterase,Urine Positive (Negative); Nitrite,Urine Negative (Negative); Protein,Urine 3+ (Neg - Trace); RBC,Urine 505 /hpf (0-3); Specific Gravity,Urine 1.025 (1.001-1.035); Squamous Epithelial Cell,Urine 1 /hpf (0-5); Urobilinogen,Urine Negative mg/dL (0.0-1.0); WBC,Urine 290 /hpf (0-5)
[2024-10-23 00:18] LABS: Clarity,Urine Hazy (Clear/Hazy)
[2024-10-23 01:02] LABS: Sodium 115 mMol/L (136-145)
[2024-10-23 02:18] LABS: Sodium 114 mMol/L (136-145)
[2024-10-23] MEDS: HEPARIN SOD INJ 5000 UNIT/ML VIAL SC ×2 (03:12→13:31)
[2024-10-23 03:22] LABS: Sodium 114 mMol/L (136-145)
[2024-10-23 04:05] LABS: Sodium 115 mMol/L (136-145)
[2024-10-23 05:30] LABS: Basophils % (Auto) 0 % (0-2.5); Eosinophils % (Auto) 0 % (0-10); Hematocrit 33.5 % (36.0-46.0); Hemoglobin 12.2 g/dL (12.0-16.0); Immature Granulocytes % (Auto) 0 % (0-0); Immature Granulocytes Auto 0.03 Thou/mm3 (0.00-0.00); Lymphocytes # (Auto) 1.6 Thou/mm3 (1.0-4.8); Lymphocytes % (Auto) 14 % (10-50); Mean Corpuscular HGB Conc 36.4 g/dl (31.0-37.0); Mean Corpuscular Hemoglobin 27.7 pg (25.0-35.0); Mean Corpuscular Volume 76 fL (80-100); Monocytes # (Auto) 0.9 Thou/mm3 (0.0-0.8); Monocytes % (Auto) 8 % (0-12); Neutrophils # (Auto) 8.9 Thou/mm3 (1.8-7.7); Neutrophils % (Auto) 78 % (37-80); Nucleated Red Blood Cell % 0 /100 WBC (0); Platelet Count 311 Thou/mm3 (140-440); RDW Standard Deviation 34.3 fL (36.4-46.3); White Blood Count 11.5 Thou/mm3 (3.6-11.0)
[2024-10-23 05:57] LABS: Glucose Estimated Average 137 mg/dL (80-131); Hemoglobin A1C 6.4 % Hgb (4.8-6.0)
[2024-10-23 06:16] LABS: Alanine Aminotransferase 15 U/L (10-49); Albumin, Serum 4.1 gm/dL (3.4-4.8); Albumin/Globulin Ratio 1.9 (1.2-2.2); Alkaline Phosphatase 55 U/L (46-116); Anion Gap 11 (7-16); Aspartate Amino Transferase 26 U/L (0-34); BUN/Creatinine Ratio 35 Ratio (12-20); Bilirubin,Total 0.9 mg/dL (0.3-1.2); Blood Urea Nitrogen 14 mg/dL (9-23); Calcium 8.6 mg/dL (8.3-10.6); Calcium (Corrected) 8.6 mg/dL (8.5-10.1); Carbon Dioxide 22.4 mMol/L (20.0-31.0); Chloride 81 mMol/L (98-107); Creatinine (Component) 0.4 mg/dL (0.6-1.3); Estimated Creatinine Clearance 103.2 mL/min (>60); Globulin 2.2 gm/dL (2.3-3.5); Glucose 95 mg/dL (74-106); Magnesium 1.3 mg/dL (1.6-2.6); Osmolality,Calculated 231 (275-295); Phosphorous 2.9 mg/dL (2.4-5.1); Potassium 3.2 mMol/L (3.4-5.1); Total Protein 6.3 gm/dL (5.7-8.2); eGFR > 60 See Note
[2024-10-23 06:35] LABS: Sodium 114 mMol/L (136-145)
[2024-10-23 07:47] LABS: Sodium 113 mMol/L (136-145)
[2024-10-23] MEDS: POTASSIUM CHLORIDE 20 mEq TABCR 40 MEQ PO (08:04)
[2024-10-23] MEDS: Magnesium Sulfate 4 GM Ivpb 4 GM/50 ML BAG IV (08:05)
[2024-10-23] MEDS: SODIUM CHLORIDE 3%(Hypertonic) 500 ML in PRE-MIXED 1 BAG 30 ML IV (08:35)
[2024-10-23] MEDS: amLODIPine BESYLATE 5 MG TABLET PO (08:46)
[2024-10-23 08:59] LABS: Free T4 (Free Thyroxine) 1.71 ng/dL (0.89-1.76); Thyroid Stimulating Hormone 2.99 uIU/mL (0.55-4.78)
[2024-10-23 09:51] LABS: Sodium 114 mMol/L (136-145)
[2024-10-23 09:52] LABS: Sodium 113 mMol/L (136-145)
--- NOTE | 2024-10-23 10:06 | PC.SS ---
CARBONIZER TESTER attempted phone contact with patient's daughter, Sherrie Gallegos . No response.
[2024-10-23] MEDS: TAMSULOSIN HCL 0.4 MG CAPSULE PO (10:41)
--- NOTE | 2024-10-23 11:07 | PC.SS ---
ASSISTANT SPA DIRECTOR conducted bedside contact with the patient conduct initial assessment and to discuss discharge planning. At bedside with patient was granddaughter, Alyssa Gallegos . Patient is Vietnamese speaking. Granddaughter provided information for assessment and discharge planning. Patient resides at home with spouse. Patient does not utilize DME for ambulatory assistance. Patient does not use home oxygen. Patient possesses ability to complete ADL?s independently. Patient?s medical surrogate decision maker is daughter, Sherrie Gallegos . Patient?s PCP is Dr. Roberts, [facility]. The patient does not participate any specialty providers. Patient is diabetic, non-insulin dependent. The patient does not participate with dialysis. Discharge plan is for the patient to return home at the time of discharge. Family will provide transportation on behalf of the patient. No further intervention required at this time, social group worker will be available to address any further concerns. Next of Kin: Sherrie El D/C Plan: Home
[2024-10-23 11:21] LABS: Sodium 114 mMol/L (136-145)
[2024-10-23] MEDS: INSULIN LISPRO (AdmeLOG) 1 UNIT/0.01 ML UNIT SC ×3 (12:09→21:34)
[2024-10-23 12:25] LABS: Sodium 115 mMol/L (136-145)
[2024-10-23 12:26] LABS: Sodium 115 mMol/L (136-145)
--- NOTE | 2024-10-23 13:39 | ESPR_ITS ---
<Statement entered by Livia James DO - 10/23/24 23:02> Senior attestation: Patient was examined and case was reviewed with team including attending physician. Note reviewed, I agree with most of its contents and agree with the patient's care. Sodium noted to improve to 114 this morning, will continue with hypertonic saline today with goal of sodium 120 by /8 morning. MRI head/brain ordered to investigate causes of hyponatremia, such as SIADH/pituitary pathology. Tamsulosin started for urinary retention, melatonin nightly for difficulty sleeping. Livia James DO PGY-3 Documentation for date of: 10/23/24 Subjective Subjective Interval history: Patient is 79 years old [place]-speaking female with past medical history of hypertension, type 2 diabetes mellitus, hyperlipidemia presented to the ED complaining of worsening weakness and dizziness. Patient cannot recall when she started developing the symptoms but it was worsening over time. She reported that she also developed significant thirst and was drinking plenty of water daily, her urine output has significantly increased too. Patient denied any fever, chills, changing in vision or hearing, headache, dysuria symptoms, shortness of breath. Patient denies any falls or trauma. On admission patient hypertensive with blood pressure 184/78 and given hydralazine IV in the ED. Labs showed WBCs 15.5, sodium 110, chloride 76, glucose 215, osmolarity 230, uric acid 3.1, magnesium 1.1, phosphorus 2.8. Troponin I negative. Chest x-ray showed bronchitis pattern. EKG showed sinus tachycardia with RBBB. 10/23/24:Patient seen and examined at bedside, reports no new complaints/symptoms, sodium improved to 114 in 24 hours, correction by 4, within the goal correction rate of 4-6 in 24 hours, will continue to correct with similar goal, anticipated sodium goal 120-122 in a.m. otherwise patient at bedside reported she has been drinking 3 tall bottles of water on a daily basis, using hydrochlorothiazide and empagliflozin at home, urine sodium 41.1, suspicion of hyponatremia in setting of polydipsia and diuretic use. Will continue sodium checks every hour and monitor sodium closely. Patient at bedside does complain of insomnia and depression, reports feeling depressed at times, sad at times and tired most of the day, complains of low energy at home, denies any suicidal/homicidal ideations, will be started on melatonin at bedtime for insomnia. Pending MRI, will continue to monitor patient. Exam Vital Signs Temp Pulse Resp BP Pulse Ox O2 Del Method 98.4 F 88 23 H 158/71 H 96 Room Air 10/23/24 08:00 10/23/24 12:00 10/23/24 12:00 10/23/24 12:00 10/23/24 12:00 10/23/24 06:05 Narrative Exam Gen: Well-developed and well-nourished elderly female. HEENT: NCAT, PERRLA, EOMI, MMM, anicteric conjunctivae. CVS: normal S1 and S2. Regular tachycardia. No M/R/G. Resp: Decreased breath sounds B/L. No rhonchi, rales, crackles or wheezing. Abd: soft, obese, non-tender, non-distended. BS+ in all 4 quadrants. MSK: Good ROM in BUE & BLE. No edema or rash. Neuro: CN II-XII grossly intact. Strength 5/5 in BUE & BLE. Alert and oriented x3. Psych: appropriate mood and affect. Objective Labs 10/26/24 08:45 10/26/24 08:45 Labs: Laboratory Results - last 24 hr 10/22/24 10/22/24 10/22/24 10:55 14:10 15:03 WBC RBC Hgb Hct MCV MCH MCHC RDW Std Deviation Plt Count Neut % (Auto) Lymph % (Auto) [place] % (Auto) Eos % (Auto) Baso % (Auto) Neut # (Auto) Lymph # (Auto) [place] # (Auto) Eos # (Auto) Baso # (Auto) Immature Gran # (Auto) Absolute Nucleated RBC Immature Gran % Nucleated RBC % Sodium 108 L* 108 L* Potassium Chloride Carbon Dioxide Anion Gap BUN Creatinine Estim Creat Clear Calc eGFR BUN/Creatinine Ratio Glucose Estimated Ave Glu mg/dL Hemoglobin A1c Calculated Osmolality Uric Acid 3.1 Calcium Corrected Calcium Phosphorus Magnesium Total Bilirubin AST ALT Alkaline Phosphatase Total Protein Albumin Globulin Albumin/Globulin Ratio Triglycerides 87 Cholesterol 159 LDL Cholesterol, Calc 78 HDL Cholesterol 64 H Cholesterol/HDL Ratio 2.5 L TSH Free T4 Ur Collection Type Urine Color Urine Clarity Urine pH Ur Specific [place] Urine Protein Urine Glucose (UA) Urine Ketones Urine Blood Urine Nitrite Urine Bilirubin Urine Urobilinogen (Auto) Ur Leukocyte Esterase Urine RBC Urine WBC Ur Squamous Epith Cells Urine Bacteria Urine Yeast (Budding) Ur Random Creatinine Ur Random Sodium Ur Random Potassium Ur Random Chloride 10/22/24 10/22/24 10/22/24 16:09 17:07 18:08 WBC RBC Hgb Hct MCV MCH MCHC RDW Std Deviation Plt Count Neut % (Auto) Lymph % (Auto) [place] % (Auto) Eos % (Auto) Baso % (Auto) Neut # (Auto) Lymph # (Auto) [place] # (Auto) Eos # (Auto) Baso # (Auto) Immature Gran # (Auto) Absolute Nucleated RBC Immature Gran % Nucleated RBC % Sodium 109 L* 111 L* 111 L* Potassium Chloride Carbon Dioxide Anion Gap BUN Creatinine Estim Creat Clear Calc eGFR BUN/Creatinine Ratio Glucose Estimated Ave Glu mg/dL Hemoglobin A1c Calculated Osmolality Uric Acid Calcium Corrected Calcium Phosphorus Magnesium Total Bilirubin AST ALT Alkaline Phosphatase Total Protein Albumin Globulin Albumin/Globulin Ratio Triglycerides Cholesterol LDL Cholesterol, Calc HDL Cholesterol Cholesterol/HDL Ratio TSH Free T4 Ur Collection Type Urine Color Urine Clarity Urine pH Ur Specific [place] Urine Protein Urine Glucose (UA) Urine Ketones Urine Blood Urine Nitrite Urine Bilirubin Urine Urobilinogen (Auto) Ur Leukocyte Esterase Urine RBC Urine WBC Ur Squamous Epith Cells Urine Bacteria Urine Yeast (Budding) Ur Random Creatinine Ur Random Sodium Ur Random Potassium Ur Random Chloride 10/22/24 10/22/24 10/22/24 18:49 20:02 21:00 WBC RBC Hgb Hct MCV MCH MCHC RDW Std Deviation Plt Count Neut % (Auto) Lymph % (Auto) [place] % (Auto) Eos % (Auto) Baso % (Auto) Neut # (Auto) Lymph # (Auto) [place] # (Auto) Eos # (Auto) Baso # (Auto) Immature Gran # (Auto) Absolute Nucleated RBC Immature Gran % Nucleated RBC % Sodium 112 L* 113 L* 113 L* Potassium Chloride Carbon Dioxide Anion Gap BUN Creatinine Estim Creat Clear Calc eGFR BUN/Creatinine Ratio Glucose Estimated Ave Glu mg/dL Hemoglobin A1c Calculated Osmolality Uric Acid Calcium Corrected Calcium Phosphorus Magnesium Total Bilirubin AST ALT Alkaline Phosphatase Total Protein Albumin Globulin Albumin/Globulin Ratio Triglycerides Cholesterol LDL Cholesterol, Calc HDL Cholesterol Cholesterol/HDL Ratio TSH Free T4 Ur Collection Type Urine Color Urine Clarity Urine pH Ur Specific [place] Urine Protein Urine Glucose (UA) Urine Ketones Urine Blood Urine Nitrite Urine Bilirubin Urine Urobilinogen (Auto) Ur Leukocyte Esterase Urine RBC Urine WBC Ur Squamous Epith Cells Urine Bacteria Urine Yeast (Budding) Ur Random Creatinine Ur Random Sodium Ur Random Potassium Ur Random Chloride 10/22/24 10/22/24 10/22/24 22:14 22:15 22:17 WBC RBC Hgb Hct MCV MCH MCHC RDW Std Deviation Plt Count Neut % (Auto) Lymph % (Auto) [place] % (Auto) Eos % (Auto) Baso % (Auto) Neut # (Auto) Lymph # (Auto) [place] # (Auto) Eos # (Auto) Baso # (Auto) Immature Gran # (Auto) Absolute Nucleated RBC Immature Gran % Nucleated RBC % Sodium 114 L* Potassium Chloride Carbon Dioxide Anion Gap BUN Creatinine Estim Creat Clear Calc eGFR BUN/Creatinine Ratio Glucose Estimated Ave Glu mg/dL Hemoglobin A1c Calculated Osmolality Uric Acid Calcium Corrected Calcium Phosphorus Magnesium Total Bilirubin AST ALT Alkaline Phosphatase Total Protein Albumin Globulin Albumin/Globulin Ratio Triglycerides Cholesterol LDL Cholesterol, Calc HDL Cholesterol Cholesterol/HDL Ratio TSH Free T4 Ur Collection Type Clean Catch Urine Color Yellow Urine Clarity Hazy Urine pH 6.0 Ur Specific [place] 1.025 Urine Protein 3+ A Urine Glucose (UA) Trace Urine Ketones 2+ A Urine Blood 3+ A Urine Nitrite Negative Urine Bilirubin Negative Urine Urobilinogen (Auto) Negative Ur Leukocyte Esterase Positive Urine RBC 505 H Urine WBC 290 H Ur Squamous Epith Cells 1 Urine Bacteria 1+ A Urine Yeast (Budding) Present A Ur Random Creatinine 127 H Ur Random Sodium 41.1 Ur Random Potassium 55 Ur Random Chloride 45.4 L 10/22/24 10/23/24 10/23/24 23:24 00:32 01:18 WBC RBC Hgb Hct MCV MCH MCHC RDW Std Deviation Plt Count Neut % (Auto) Lymph % (Auto) [place] % (Auto) Eos % (Auto) Baso % (Auto) Neut # (Auto) Lymph # (Auto) [place] # (Auto) Eos # (Auto) Baso # (Auto) Immature Gran # (Auto) Absolute Nucleated RBC Immature Gran % Nucleated RBC % Sodium 114 L* 115 L* 114 L* Potassium Chloride Carbon Dioxide Anion Gap BUN Creatinine Estim Creat Clear Calc eGFR BUN/Creatinine Ratio Glucose Estimated Ave Glu mg/dL Hemoglobin A1c Calculated Osmolality Uric Acid Calcium Corrected Calcium Phosphorus Magnesium Total Bilirubin AST ALT Alkaline Phosphatase Total Protein Albumin Globulin Albumin/Globulin Ratio Triglycerides Cholesterol LDL Cholesterol, Calc HDL Cholesterol Cholesterol/HDL Ratio TSH Free T4 Ur Collection Type Urine Color Urine Clarity Urine pH Ur Specific [place] Urine Protein Urine Glucose (UA) Urine Ketones Urine Blood Urine Nitrite Urine Bilirubin Urine Urobilinogen (Auto) Ur Leukocyte Esterase Urine RBC Urine WBC Ur Squamous Epith Cells Urine Bacteria Urine Yeast (Budding) Ur Random Creatinine Ur Random Sodium Ur Random Potassium Ur Random Chloride 10/23/24 10/23/24 10/23/24 02:29 03:21 04:45 WBC 11.5 H RBC 4.40 Hgb 12.2 Hct 33.5 L MCV 76 L MCH 27.7 MCHC 36.4 RDW Std Deviation 34.3 L Plt Count 311 Neut % (Auto) 78 Lymph % (Auto) 14 [place] % (Auto) 8 Eos % (Auto) 0 Baso % (Auto) 0 Neut # (Auto) 8.9 H Lymph # (Auto) 1.6 [place] # (Auto) 0.9 H Eos # (Auto) 0.0 Baso # (Auto) 0.0 Immature Gran # (Auto) 0.03 H Absolute Nucleated RBC 0.00 Immature Gran % 0 Nucleated RBC % 0 Sodium 114 L* 115 L* 114 L* Potassium 3.2 L D Chloride 81 L Carbon Dioxide 22.4 Anion Gap 11 BUN 14 Creatinine 0.4 L Estim Creat Clear Calc 103.2 eGFR > 60 BUN/Creatinine Ratio [address] H Glucose [address] Glu mg/dL 137 H Hemoglobin A1c 6.4 H Calculated Osmolality 231 L Uric Acid Calcium 8.6 Corrected Calcium 8.6 Phosphorus 2.9 Magnesium 1.3 L Total Bilirubin 0.9 AST 26 ALT 15 Alkaline Phosphatase 55 Total Protein 6.3 Albumin 4.1 D Globulin 2.2 L Albumin/Globulin Ratio 1.9 Triglycerides Cholesterol LDL Cholesterol, Calc HDL Cholesterol Cholesterol/HDL Ratio TSH 2.99 Free T4 1.71 Ur Collection Type Urine Color Urine Clarity Urine pH Ur Specific [place] Urine Protein Urine Glucose (UA) Urine Ketones Urine Blood Urine Nitrite Urine Bilirubin Urine Urobilinogen (Auto) Ur Leukocyte Esterase Urine RBC Urine WBC Ur Squamous Epith Cells Urine Bacteria Urine Yeast (Budding) Ur Random Creatinine Ur Random Sodium Ur Random Potassium Ur Random Chloride 10/23/24 10/23/24 10/23/24 06:09 07:50 08:45 WBC RBC Hgb Hct MCV MCH MCHC RDW Std Deviation Plt Count Neut % (Auto) Lymph % (Auto) [place] % (Auto) Eos % (Auto) Baso % (Auto) Neut # (Auto) Lymph # (Auto) [place] # (Auto) Eos # (Auto) Baso # (Auto) Immature Gran # (Auto) Absolute Nucleated RBC Immature Gran % Nucleated RBC % Sodium 113 L* 114 L* 113 L* Potassium Chloride Carbon Dioxide Anion Gap BUN Creatinine Estim Creat Clear Calc eGFR BUN/Creatinine Ratio Glucose Estimated Ave Glu mg/dL Hemoglobin A1c Calculated Osmolality Uric Acid Calcium Corrected Calcium Phosphorus Magnesium Total Bilirubin AST ALT Alkaline Phosphatase Total Protein Albumin Globulin Albumin/Globulin Ratio Triglycerides Cholesterol LDL Cholesterol, Calc HDL Cholesterol Cholesterol/HDL Ratio TSH Free T4 Ur Collection Type Urine Color Urine Clarity Urine pH Ur Specific [place] Urine Protein Urine Glucose (UA) Urine Ketones Urine Blood Urine Nitrite Urine Bilirubin Urine Urobilinogen (Auto) Ur Leukocyte Esterase Urine RBC Urine WBC Ur Squamous Epith Cells Urine Bacteria Urine Yeast (Budding) Ur Random Creatinine Ur Random Sodium Ur Random Potassium Ur Random Chloride 10/23/24 10/23/24 10/23/24 10:19 11:06 11:55 WBC RBC Hgb Hct MCV MCH MCHC RDW Std Deviation Plt Count Neut % (Auto) Lymph % (Auto) [place] % (Auto) Eos % (Auto) Baso % (Auto) Neut # (Auto) Lymph # (Auto) [place] # (Auto) Eos # (Auto) Baso # (Auto) Immature Gran # (Auto) Absolute Nucleated RBC Immature Gran % Nucleated RBC % Sodium 114 L* 115 L* 115 L* Potassium Chloride Carbon Dioxide Anion Gap BUN Creatinine Estim Creat Clear Calc eGFR BUN/Creatinine Ratio Glucose Estimated Ave Glu mg/dL Hemoglobin A1c Calculated Osmolality Uric Acid Calcium Corrected Calcium Phosphorus Magnesium Total Bilirubin AST ALT Alkaline Phosphatase Total Protein Albumin Globulin Albumin/Globulin Ratio Triglycerides Cholesterol LDL Cholesterol, Calc HDL Cholesterol Cholesterol/HDL Ratio TSH Free T4 Ur Collection Type Urine Color Urine Clarity Urine pH Ur Specific [place] Urine Protein Urine Glucose (UA) Urine Ketones Urine Blood Urine Nitrite Urine Bilirubin Urine Urobilinogen (Auto) Ur Leukocyte Esterase Urine RBC Urine WBC Ur Squamous Epith Cells Urine Bacteria Urine Yeast (Budding) Ur Random Creatinine Ur Random Sodium Ur Random Potassium Ur Random Chloride Quality Measures Quality Measures VTE prophylaxis Advance care planning discussed with:: patient and child Assessment & Plan Assessment Current Active Medications: Generic Name Dose Route Start Last Admin Trade Name Freq PRN Reason Stop Dose Admin Acetaminophen 1,000 mg 10/22/24 19:04 10/22/24 19:42 Acetaminophen 500 Mg Tablet PO 11/21/24 19:03 1,000 mg Q6HR PRN Administration PAIN Amlodipine Besylate 5 mg 10/23/24 09:00 10/23/24 08:46 Amlodipine Besylate 5 Mg Tablet PO 11/22/24 08:59 5 mg QDAY JARETT Administration Dextrose 25 ml 10/22/24 14:02 Dextrose 50%-Water Inj 50 Ml Syringe IV 11/21/24 14:01 Q15MIN PRN BG 50-70 responsive npo pt Dextrose 50 ml 10/22/24 14:02 Dextrose 50%-Water Inj 50 Ml Syringe IV 11/21/24 14:01 Q15MIN PRN BG <50 OR BG <70 & pt unresponsive Glucagon 1 mg 10/22/24 14:02 Glucagon Inj 1 Mg Vial IM Q15MIN PRN BG <70, and no IV access Heparin Sodium (Porcine) 5,000 unit 10/22/24 14:15 10/23/24 13:31 Heparin Sod Inj 5000 Unit/Ml Vial SC 11/05/24 14:14 5,000 unit Q12H JARETT Administration Sodium Chloride 500 ml/ IV 500 mls @ 30 mls/hr 10/23/24 07:48 10/23/24 08:35 Miscellaneous Supplies IV 10/24/24 00:27 30 mls/hr X1 ONE Administration Insulin Human Lispro 0 unit 10/22/24 17:00 10/23/24 12:09 Insulin Lispro (Admelog) 1 Unit/0.01 Ml Unit SC 11/21/24 16:59 2 unit ACHS JARETT Administration Protocol Melatonin 3 mg 10/22/24 21:00 10/22/24 20:09 Melatonin 3 Mg Tablet PO 11/21/24 20:59 3 mg HS JARETT Administration Ondansetron HCl 4 mg 10/22/24 14:02 Ondansetron Inj 2 Mg/Ml Inj 2 Ml IV 11/21/24 14:01 Q6H PRN NAUSEA OR VOMITING Protocol Sennosides 1 tab 10/22/24 14:07 Senna/Docusate Sod 1 Tab Tablet PO 11/21/24 14:06 BID PRN Constipation Protocol Tamsulosin HCl 0.4 mg 10/23/24 10:30 10/23/24 10:41 Tamsulosin Hcl 0.4 Mg Capsule PO 11/22/24 10:29 0.4 mg QDAY JARETT Administration Plan Assessment and Plan: Summary: Patient is 79 years old [place]-speaking female with past medical history of hypertension, type 2 diabetes mellitus, hyperlipidemia presented to the ED complaining of worsening weakness and dizziness, was found to have severe hyponatremia of 110 and was admitted to ICU for further management. Neuro: #Chronic dizziness. Patient has chronic dizziness for many years, reason is unknown, was previously prescribed meclizine. Her dizziness has worsened within the last several weeks. #Depression Patient reports feeling sad at home, complains of anxiety at home, complains of insomnia and feeling depressed at times, not on any antidepressant currently. Will be started on melatonin at bedtime for insomnia today Patient will need outpatient workup with primary care provider, will avoid SSRIs. Cardiovascular: #History of hypertension. On admission blood pressure 184/78. Patient given hydralazine 10 mg IV x 1 for hypertension. Plan: -Hydralazine IV as needed. -Home amlodipine was resumed. -Home lisinopril hydrochlorothiazide was held. Respiratory: No active problem. Gastrointestinal: No active problem. Renal: #Severe hypoosmolar hypochloremic hyponatremia. #Hypokalemia #Hypomagnesemia. On admission sodium 110, potassium 4.3, chloride 76, glucose 215, uric acid 3.1, BUN 14, magnesium 1.1, calculated osmolarity 230. Patient reports polyuria and polydipsia. Patient is on lisinopril hydrochlorothiazide at home. Urine electrolytes show urine creatinine 127, urine sodium 41.1, urine potassium 55, urine chloride 45.4, limited study as was done after patient was given hypertonic saline Plan: -Continue hypertonic saline 40 cc/h -Fluid restriction 1.5 L daily. -Strict ROZ. -Nephrology is following. -Patient complains of oliguria, started on tamsulosin 0.4 mg Endocrine: #History of type 2 diabetes mellitus. At home takes Jardiance, glipizide and metformin. On admission glucose 202. Hemoglobin A1c 6.4 Plan: -Medications held. -Started on sliding scale insulin. -Daily Accu-Cheks. -Hypoglycemia protocol in place. Infectious Disease: #Asymptomatic bacteriuria Urinalysis shows urine protein 3+, ketones 2+, blood 3+, nitrite negative, leukocyte esterase positive Urine RBC 505, urine WBC 290, urine bacteria 1+, yeast positive Patient denies any dysuria Ordered urine culture, possibility of E. coli colonization Hematology/Oncology: No active problem. Diet: Carb consistent diet with fluid restriction 1.5 L. DVT prophylaxis: Heparin. GI prophylaxis: None. Code status: Full code. Disposition: ICU for management of hyponatremia. Plan of care discussed with ICU attending Dr. Wharton and my senior Dr James PGY-3 Sanjuana Pablo PGY1 Attending Provider Attestation/Addendum Patient seen and examined with above resident, Sanjuana Pablo MD. I agree with the findings, assessment, and plan of care as document except for any differences below. Patient with significant hyponatremia with workup ongoing. Continues to have appropriate increase in sodium level with addition of hypertonic saline that is intermittently being used to ensure adequate correction. No significant urine output warranting initiation of DDAVP at this point. Plan to monitor in the ICU until sodium level is greater than 120. Patient without any focal neurologic deficits. She does complain of some urinary retention for which we we will minimize anticholinergic agents and consider bladder scanning with intermittent straight cath or initiation of Flomax for alternate alpha-behzad. Appreciate nephrology's ongoing assistance with evaluation and treatment course. Patient was updated at bedside with plan of care and remains agreeable. Family has not been by at this time for me to update them. Total critical care time: I personally spent 30 minutes for review of physiologic parameters, directing plan of care throughout the day, coordination of care with other subspecialists, and counseling patient at bedside. This is exclusive of time spent teaching housestaff performing any separate billable procedures. Patient continues to require critical care services for severe hyponatremia. She remains at risk for increased morbidity and mortality including demyelination syndrome associated with over rapid correction warranting ongoing close monitoring and care only available in the intensive care unit.
[2024-10-23 14:07] LABS: Sodium 115 mMol/L (136-145)
[2024-10-23 15:20] LABS: Sodium 115 mMol/L (136-145)
[2024-10-23 16:20] LABS: Sodium 114 mMol/L (136-145)
[2024-10-23 17:25] LABS: Sodium 115 mMol/L (136-145)
--- NOTE | 2024-10-23 17:59 | PD.RESPRO ---
Documentation for date of: 10/23/24 Subjective Subjective Interval history: Ms. Royal is a 79-year-old female patient with past medical history of hypertension, diabetes mellitus, hyperlipidemia, presented to the ED due to generalized weakness for 3 days associated with decreased oral intake and excessive urination. Patient reported that his symptoms started gradually however it kept worsening over time. Today she went to her PCP however as per the daughter he did not do any blood work for the patient for that reason they decided to come to the ED. The daughter denied any episodes of seizure or loss of consciousness denied any fall down however she reported that for the past few days she started to feel dizzy. Denied any vomiting or diarrhea, denied any new medications added to her regimen. Home medications: Metformin, glipizide, lisinopril/hydrochlorothiazide, Jardiance, meclizine, montelukast, senna, amlodipine ED course: At the ED patient blood pressure was elevated 184/78, she was given 1 dose of hydralazine 20 mg IV. Heart rate in the high normal range between 90s and 110s, normal sinus. WBC was elevated 15, hemoglobin stable at 13 and sodium was found to be 110 repeat labs to rule out any artifact also came back 110. Patient was started at the ED with 30 mL/h 3 percent NS. 10/23/2024 patient currently seen in ICU. Patient was seen and examined at bedside, denied any new symptoms, no shivering or chills no episodes of seizures or abnormal movements. Sodium level for the past 24 hours was corrected by 5 mEq up to 115, goal for tomorrow is to be corrected up to 122. Sodium checks can be changed from every hours to every 2 hours at this time. Exam Vital Signs Temp Pulse Resp BP Pulse Ox O2 Del Method 97.4 F 91 24 H 145/75 H 98 Room Air 10/23/24 16:01 10/23/24 17:00 10/23/24 17:00 10/23/24 17:10/23/24 17:10/23/24 06:05 Narrative Exam GEN: Greek speaker, AOx3, able to speak full sentences HEENT: NC/AC, oral mucosa moist, neck supple CVS: RRR, S1-S2 present, no murmurs appreciated RESP: Good air entry bilaterally. GI: soft,non distended, non tender, NBS MSK: Generalized weakness noticed however able to move all 4 limbs, no lower extremity edema SKIN: warm and dry GOODWILL REPRESENTATIVE: No focal neurological deficit, CN II-XII and Sensation grossly intact. Objective Labs 10/23/24 04:45 10/23/24 19:00 Labs: Laboratory Results - last 24 hr 10/22/24 10/22/24 10/22/24 17:07 18:08 18:49 WBC RBC Hgb Hct MCV MCH MCHC RDW Std Deviation Plt Count Neut % (Auto) Lymph % (Auto) Osborne % (Auto) Eos % (Auto) Baso % (Auto) Neut # (Auto) Lymph # (Auto) Osborne # (Auto) Eos # (Auto) Baso # (Auto) Immature Gran # (Auto) Absolute Nucleated RBC Immature Gran % Nucleated RBC % Sodium 111 L* 111 L* 112 L* Potassium Chloride Carbon Dioxide Anion Gap BUN Creatinine Estim Creat Clear Calc eGFR BUN/Creatinine Ratio Glucose Estimated Ave Glu mg/dL Hemoglobin A1c Calculated Osmolality Calcium Corrected Calcium Phosphorus Magnesium Total Bilirubin AST ALT Alkaline Phosphatase Total Protein Albumin Globulin Albumin/Globulin Ratio TSH Free T4 Ur Collection Type Urine Color Urine Clarity Urine pH Ur Specific [place] Urine Protein Urine Glucose (UA) Urine Ketones Urine Blood Urine Nitrite Urine Bilirubin Urine Urobilinogen (Auto) Ur Leukocyte Esterase Urine RBC Urine WBC Ur Squamous Epith Cells Urine Bacteria Urine Yeast (Budding) Ur Random Creatinine Ur Random Sodium Ur Random Potassium Ur Random Chloride 10/22/24 10/22/24 10/22/24 20:02 21:00 22:14 WBC RBC Hgb Hct MCV MCH MCHC RDW Std Deviation Plt Count Neut % (Auto) Lymph % (Auto) Osborne % (Auto) Eos % (Auto) Baso % (Auto) Neut # (Auto) Lymph # (Auto) [place] # (Auto) Eos # (Auto) Baso # (Auto) Immature Gran # (Auto) Absolute Nucleated RBC Immature Gran % Nucleated RBC % Sodium 113 L* 113 L* Potassium Chloride Carbon Dioxide Anion Gap BUN Creatinine Estim Creat Clear Calc eGFR BUN/Creatinine Ratio Glucose Estimated Ave Glu mg/dL Hemoglobin A1c Calculated Osmolality Calcium Corrected Calcium Phosphorus Magnesium Total Bilirubin AST ALT Alkaline Phosphatase Total Protein Albumin Globulin Albumin/Globulin Ratio TSH Free T4 Ur Collection Type Urine Color Urine Clarity Urine pH Ur Specific [place] Urine Protein Urine Glucose (UA) Urine Ketones Urine Blood Urine Nitrite Urine Bilirubin Urine Urobilinogen (Auto) Ur Leukocyte Esterase Urine RBC Urine WBC Ur Squamous Epith Cells Urine Bacteria Urine Yeast (Budding) Ur Random Creatinine 127 H Ur Random Sodium 41.1 Ur Random Potassium 55 Ur Random Chloride 45.4 L 10/22/24 10/22/24 10/22/24 22:15 22:17 23:24 WBC RBC Hgb Hct MCV MCH MCHC RDW Std Deviation Plt Count Neut % (Auto) Lymph % (Auto) Osborne % (Auto) Eos % (Auto) Baso % (Auto) Neut # (Auto) Lymph # (Auto) [place]borne # (Auto) Eos # (Auto) Baso # (Auto) Immature Gran # (Auto) Absolute Nucleated RBC Immature Gran % Nucleated RBC % Sodium 114 L* 114 L* Potassium Chloride Carbon Dioxide Anion Gap BUN Creatinine Estim Creat Clear Calc eGFR BUN/Creatinine Ratio Glucose Estimated Ave Glu mg/dL Hemoglobin A1c Calculated Osmolality Calcium Corrected Calcium Phosphorus Magnesium Total Bilirubin AST ALT Alkaline Phosphatase Total Protein Albumin Globulin Albumin/Globulin Ratio TSH Free T4 Ur Collection Type Clean Catch Urine Color Yellow Urine Clarity Hazy Urine pH 6.0 Ur Specific [place] 1.025 Urine Protein 3+ A Urine Glucose (UA) Trace Urine Ketones 2+ A Urine Blood 3+ A Urine Nitrite Negative Urine Bilirubin Negative Urine Urobilinogen (Auto) Negative Ur Leukocyte Esterase Positive Urine RBC 505 H Urine WBC 290 H Ur Squamous Epith Cells 1 Urine Bacteria 1+ A Urine Yeast (Budding) Present A Ur Random Creatinine Ur Random Sodium Ur Random Potassium Ur Random Chloride 10/23/24 10/23/24 10/23/24 00:32 01:18 02:29 WBC RBC Hgb Hct MCV MCH MCHC RDW Std Deviation Plt Count Neut % (Auto) Lymph % (Auto) Osborne % (Auto) Eos % (Auto) Baso % (Auto) Neut # (Auto) Lymph # (Auto) [place] # (Auto) Eos # (Auto) Baso # (Auto) Immature Gran # (Auto) Absolute Nucleated RBC Immature Gran % Nucleated RBC % Sodium 115 L* 114 L* 114 L* Potassium Chloride Carbon Dioxide Anion Gap BUN Creatinine Estim Creat Clear Calc eGFR BUN/Creatinine Ratio Glucose Estimated Ave Glu mg/dL Hemoglobin A1c Calculated Osmolality Calcium Corrected Calcium Phosphorus Magnesium Total Bilirubin AST ALT Alkaline Phosphatase Total Protein Albumin Globulin Albumin/Globulin Ratio TSH Free T4 Ur Collection Type Urine Color Urine Clarity Urine pH Ur Specific [place] Urine Protein Urine Glucose (UA) Urine Ketones Urine Blood Urine Nitrite Urine Bilirubin Urine Urobilinogen (Auto) Ur Leukocyte Esterase Urine RBC Urine WBC Ur Squamous Epith Cells Urine Bacteria Urine Yeast (Budding) Ur Random Creatinine Ur Random Sodium Ur Random Potassium Ur Random Chloride 10/23/24 10/23/24 10/23/24 03:21 04:45 06:09 WBC 11.5 H RBC 4.40 Hgb 12.2 Hct 33.5 L MCV 76 L MCH 27.7 MCHC 36.4 RDW Std Deviation 34.3 L Plt Count 311 Neut % (Auto) 78 Lymph % (Auto) 14 Osborne % (Auto) 8 Eos % (Auto) 0 Baso % (Auto) 0 Neut # (Auto) 8.9 H Lymph # (Auto) 1.6 Osborne # (Auto) 0.9 H Eos # (Auto) 0.0 Baso # (Auto) 0.0 Immature Gran # (Auto) 0.03 H Absolute Nucleated RBC 0.00 Immature Gran % 0 Nucleated RBC % 0 Sodium 115 L* 114 L* 113 L* Potassium 3.2 L D Chloride 81 L Carbon Dioxide 22.4 Anion Gap 11 BUN 14 Creatinine 0.4 L Estim Creat Clear Calc 103.2 eGFR > 60 BUN/Creatinine Ratio [address] H Glucose [address] Glu mg/dL 137 H Hemoglobin A1c 6.4 H Calculated Osmolality 231 L Calcium 8.6 Corrected Calcium 8.6 Phosphorus 2.9 Magnesium 1.3 L Total Bilirubin 0.9 AST 26 ALT 15 Alkaline Phosphatase 55 Total Protein 6.3 Albumin 4.1 D Globulin 2.2 L Albumin/Globulin Ratio 1.9 TSH 2.99 Free T4 1.71 Ur Collection Type Urine Color Urine Clarity Urine pH Ur Specific [place] Urine Protein Urine Glucose (UA) Urine Ketones Urine Blood Urine Nitrite Urine Bilirubin Urine Urobilinogen (Auto) Ur Leukocyte Esterase Urine RBC Urine WBC Ur Squamous Epith Cells Urine Bacteria Urine Yeast (Budding) Ur Random Creatinine Ur Random Sodium Ur Random Potassium Ur Random Chloride 10/23/24 10/23/24 10/23/24 07:50 08:45 10:19 WBC RBC Hgb Hct MCV MCH MCHC RDW Std Deviation Plt Count Neut % (Auto) Lymph % (Auto) [place] % (Auto) Eos % (Auto) Baso % (Auto) Neut # (Auto) Lymph # (Auto) [place] # (Auto) Eos # (Auto) Baso # (Auto) Immature Gran # (Auto) Absolute Nucleated RBC Immature Gran % Nucleated RBC % Sodium 114 L* 113 L* 114 L* Potassium Chloride Carbon Dioxide Anion Gap BUN Creatinine Estim Creat Clear Calc eGFR BUN/Creatinine Ratio Glucose Estimated Ave Glu mg/dL Hemoglobin A1c Calculated Osmolality Calcium Corrected Calcium Phosphorus Magnesium Total Bilirubin AST ALT Alkaline Phosphatase Total Protein Albumin Globulin Albumin/Globulin Ratio TSH Free T4 Ur Collection Type Urine Color Urine Clarity Urine pH Ur Specific [place] Urine Protein Urine Glucose (UA) Urine Ketones Urine Blood Urine Nitrite Urine Bilirubin Urine Urobilinogen (Auto) Ur Leukocyte Esterase Urine RBC Urine WBC Ur Squamous Epith Cells Urine Bacteria Urine Yeast (Budding) Ur Random Creatinine Ur Random Sodium Ur Random Potassium Ur Random Chloride 10/23/24 10/23/24 10/23/24 11:06 11:55 13:15 WBC RBC Hgb Hct MCV MCH MCHC RDW Std Deviation Plt Count Neut % (Auto) Lymph % (Auto) [place] % (Auto) Eos % (Auto) Baso % (Auto) Neut # (Auto) Lymph # (Auto) [place] # (Auto) Eos # (Auto) Baso # (Auto) Immature Gran # (Auto) Absolute Nucleated RBC Immature Gran % Nucleated RBC % Sodium 115 L* 115 L* 115 L* Potassium Chloride Carbon Dioxide Anion Gap BUN Creatinine Estim Creat Clear Calc eGFR BUN/Creatinine Ratio Glucose Estimated Ave Glu mg/dL Hemoglobin A1c Calculated Osmolality Calcium Corrected Calcium Phosphorus Magnesium Total Bilirubin AST ALT Alkaline Phosphatase Total Protein Albumin Globulin Albumin/Globulin Ratio TSH Free T4 Ur Collection Type Urine Color Urine Clarity Urine pH Ur Specific [place] Urine Protein Urine Glucose (UA) Urine Ketones Urine Blood Urine Nitrite Urine Bilirubin Urine Urobilinogen (Auto) Ur Leukocyte Esterase Urine RBC Urine WBC Ur Squamous Epith Cells Urine Bacteria Urine Yeast (Budding) Ur Random Creatinine Ur Random Sodium Ur Random Potassium Ur Random Chloride 10/23/24 10/23/24 10/23/24 14:30 15:42 16:34 WBC RBC Hgb Hct MCV MCH MCHC RDW Std Deviation Plt Count Neut % (Auto) Lymph % (Auto) [place] % (Auto) Eos % (Auto) Baso % (Auto) Neut # (Auto) Lymph # (Auto) [place] # (Auto) Eos # (Auto) Baso # (Auto) Immature Gran # (Auto) Absolute Nucleated RBC Immature Gran % Nucleated RBC % Sodium 115 L* 114 L* 115 L* Potassium Chloride Carbon Dioxide Anion Gap BUN Creatinine Estim Creat Clear Calc eGFR BUN/Creatinine Ratio Glucose Estimated Ave Glu mg/dL Hemoglobin A1c Calculated Osmolality Calcium Corrected Calcium Phosphorus Magnesium Total Bilirubin AST ALT Alkaline Phosphatase Total Protein Albumin Globulin Albumin/Globulin Ratio TSH Free T4 Ur Collection Type Urine Color Urine Clarity Urine pH Ur Specific [place] Urine Protein Urine Glucose (UA) Urine Ketones Urine Blood Urine Nitrite Urine Bilirubin Urine Urobilinogen (Auto) Ur Leukocyte Esterase Urine RBC Urine WBC Ur Squamous Epith Cells Urine Bacteria Urine Yeast (Budding) Ur Random Creatinine Ur Random Sodium Ur Random Potassium Ur Random Chloride Quality Measures Quality Measures VTE prophylaxis Advance care planning discussed with:: patient Assessment & Plan Assessment Current Active Medications: Generic Name Dose Route Start Last Admin Trade Name Freq PRN Reason Stop Dose Admin Acetaminophen 1,000 mg 10/22/24 19:04 10/22/24 19:42 Acetaminophen 500 Mg Tablet PO 11/21/24 19:03 1,000 mg Q6HR PRN Administration PAIN Amlodipine Besylate 5 mg 10/23/24 09:00 10/23/24 08:46 Amlodipine Besylate 5 Mg Tablet PO 11/22/24 08:59 5 mg QDAY JARETT Administration Dextrose 25 ml 10/22/24 14:02 Dextrose 50%-Water Inj 50 Ml Syringe IV 11/21/24 14:01 Q15MIN PRN BG 50-70 responsive npo pt Dextrose 50 ml 10/22/24 14:02 Dextrose 50%-Water Inj 50 Ml Syringe IV 11/21/24 14:01 Q15MIN PRN BG <50 OR BG <70 & pt unresponsive Glucagon 1 mg 10/22/24 14:02 Glucagon Inj 1 Mg Vial IM Q15MIN PRN BG <70, and no IV access Heparin Sodium (Porcine) 5,000 unit 10/22/24 14:15 10/23/24 13:31 Heparin Sod Inj 5000 Unit/Ml Vial SC 11/05/24 14:14 5,000 unit Q12H JARETT Administration Sodium Chloride 500 ml/ IV 500 mls @ 40 mls/hr 10/23/24 17:00 Miscellaneous Supplies IV 10/24/24 05:29 X1 ONE Insulin Human Lispro 0 unit 10/22/24 17:00 10/23/24 12:09 Insulin Lispro (Admelog) 1 Unit/0.01 Ml Unit SC 11/21/24 16:59 2 unit ACHS JARETT Administration Protocol Melatonin 3 mg 10/22/24 21:00 10/22/24 20:09 Melatonin 3 Mg Tablet PO 11/21/24 20:59 3 mg HS JARETT Administration Ondansetron HCl 4 mg 10/22/24 14:02 Ondansetron Inj 2 Mg/Ml Inj 2 Ml IV 11/21/24 14:01 Q6H PRN NAUSEA OR VOMITING Protocol Sennosides 1 tab 10/22/24 14:07 Senna/Docusate Sod 1 Tab Tablet PO 11/21/24 14:06 BID PRN Constipation Protocol Tamsulosin HCl 0.4 mg 10/23/24 10:30 10/23/24 10:41 Tamsulosin Hcl 0.4 Mg Capsule PO 11/22/24 10:29 0.4 mg QDAY JARETT Administration Plan Summary:A 79-year-old female patient with past medical history of hypertension, diabetes mellitus, hyperlipidemia, presented to the ED due to generalized weakness for 3 days associated with decreased oral intake and excessive urination. Patient reported that his symptoms started gradually however it kept worsening over time. Patient was admitted to the ICU for severe hyponatremia. Assessment and plan #Generalized body weakness most likely secondary to severe hyponatremia #Severe hypoosmolar hyponatremia #Mild hyperglycemia #Hypomagnesemia On presentation patient was found to have generalized weakness, No neurological symptoms no seizures No signs of fluid overload Sodium level found to be 110 no previous labs in her chart, Blood glucose 215, serum osmolality 230, magnesium level 1.1 Plan ? Continue hypertonic saline 3% at rate of 30 mL/h, goal of sodium level 122 mEq to be achieved over the next 24 hrs. 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 May change Sodium checks every 2 hours at this time ? Hold home medications including hydrochlorothiazide/lisinopril, hold all oral antidiabetic medications including Jardiance ? Neurochecks every 2 hours ? Seizures precautions ? Strict in and out ? Replete other electrolytes as needed #Hyperglycemia #Hypertension #History of diabetes mellitus Plan ? Follow-up with the primary team recommendations. - Patient's plan and care discussed with my attending, Dr. Mili Frank MD Internal Medicine PGY-2 Attending Provider Attestation/Addendum Patient seen and examined with resident physician Dr. Hernandez. Note reviewed, agree with findings and recommendations. Patient presented with severe symptomatic hyponatremia. Hypertonic saline at 40 mL/h started. Will monitor serum sodium every 2 hours with no more than 6 mEq rise in the next 24 hours. Plan of care discussed with ICU team. Sodium improved from 110-116. Goal 122 in the next 24 hours.
[2024-10-23] MEDS: SODIUM CHLORIDE 3%(Hypertonic) 500 ML in PRE-MIXED 1 BAG 40 ML IV (18:13)
[2024-10-23 18:19] LABS: Sodium 116 mMol/L (136-145)
[2024-10-23 19:43] LABS: Sodium 117 mMol/L (136-145)
[2024-10-23] MEDS: MELATONIN 3 MG TABLET PO (21:34)
[2024-10-23 21:54] LABS: Sodium 120 mMol/L (136-145)
[2024-10-23 23:23] LABS: Sodium 121 mMol/L (136-145)
[2024-10-24] VITALS (17 sets, daily range): BP systolic 127–176; BP diastolic 56–108; PULSE 80–108; RESP 8–30; TEMP 36.1–37.1; O2SAT 95–99
--- NOTE | 2024-10-24 | XR_ITS ---
Examination: MRI brain without intravenous contrast. Date and time of exam: October 24, 2024 2023 hrs. Indications: Generalized weakness lower extremity pain beginning one week ago getting worse Technique: Multiple axial and sagittal images of the brain obtained. Siemens high-resolution 1.5 Dianna short bore scanners utilized. Sagittal sections, T1-weighted, TR 500, TE 14, are performed. Axial sections proton-density and T2-weighted have been obtained. Inversion recovery axial images, TR 9, 260, TE 111, TI 2500. Diffusion weighted images, axial sections, TR 4800, TE 128, B value 1000 Axial sections, ADC map, TR 4800, TE 128 Findings: Enlargement of the sella turcica is not present. The optic chiasm and infundibular are not remarkable. Prepontine and interpeduncular cisterns are not enlarged. There is no localized enlargement of the medulla or apple. Fourth ventricle and cerebellar tonsils appear normal in position. No subacute area of hemorrhage density is seen. Mass in the cerebellopontine angle region is not evident. Globes symmetrical. Orbital musculature including medial lateral rectus muscles do not exhibit abnormality. Diffusion-weighted images demonstrate no focus of restricted diffusion. Increased white matter signal mild Mass effect upon the ventricular system is not identified. Impression: Negative for acute hemorrhage mass effect or midline shift No acute infarct Mild chronic microvascular white matter change No pituitary macroadenoma
[2024-10-24 01:11] LABS: Sodium 121 mMol/L (136-145)
[2024-10-24] MEDS: hydrOXYzine HCL 25 MG TABLET PO (01:59)
[2024-10-24 03:38] LABS: Sodium 121 mMol/L (136-145)
[2024-10-24 06:16] LABS: Basophils % (Auto) 0 % (0-2.5); Eosinophils % (Auto) 0 % (0-10); Hematocrit 33.1 % (36.0-46.0); Hemoglobin 11.9 g/dL (12.0-16.0); Immature Granulocytes % (Auto) 0 % (0-0); Immature Granulocytes Auto 0.02 Thou/mm3 (0.00-0.00); Lymphocytes # (Auto) 1.4 Thou/mm3 (1.0-4.8); Lymphocytes % (Auto) 17 % (10-50); Mean Corpuscular Hemoglobin 27.9 pg (25.0-35.0); Mean Corpuscular Volume 78 fL (80-100); Monocytes # (Auto) 0.8 Thou/mm3 (0.0-0.8); Monocytes % (Auto) 9 % (0-12); Neutrophils # (Auto) 5.9 Thou/mm3 (1.8-7.7); Neutrophils % (Auto) 73 % (37-80); Nucleated Red Blood Cell % 0 /100 WBC (0); Platelet Count 288 Thou/mm3 (140-440); RDW Standard Deviation 35.6 fL (36.4-46.3); Red Blood Count 4.27 Miln/mm3 (4.00-5.20); White Blood Count 8.1 Thou/mm3 (3.6-11.0)
[2024-10-24 06:59] LABS: Alanine Aminotransferase 15 U/L (10-49); Albumin, Serum 3.9 gm/dL (3.4-4.8); Albumin/Globulin Ratio 1.6 (1.2-2.2); Alkaline Phosphatase 58 U/L (46-116); Anion Gap 7 (7-16); Aspartate Amino Transferase 27 U/L (0-34); BUN/Creatinine Ratio 30 Ratio (12-20); Bilirubin,Total 0.6 mg/dL (0.3-1.2); Blood Urea Nitrogen 12 mg/dL (9-23); Calcium 8.6 mg/dL (8.3-10.6); Calcium (Corrected) 8.7 mg/dL (8.5-10.1); Carbon Dioxide 22.8 mMol/L (20.0-31.0); Chloride 91 mMol/L (98-107); Creatinine (Component) 0.4 mg/dL (0.6-1.3); Estimated Creatinine Clearance 103.2 mL/min (>60); Globulin 2.4 gm/dL (2.3-3.5); Glucose 142 mg/dL (74-106); Magnesium 1.5 mg/dL (1.6-2.6); Osmolality,Calculated 245 (275-295); Phosphorous 1.9 mg/dL (2.4-5.1); Potassium 3.9 mMol/L (3.4-5.1); Sodium 121 mMol/L (136-145); Total Protein 6.3 gm/dL (5.7-8.2); eGFR > 60 See Note
[2024-10-24] MEDS: INSULIN LISPRO (AdmeLOG) 1 UNIT/0.01 ML UNIT SC ×4 (07:29→21:29)
[2024-10-24 07:53] LABS: Sodium 121 mMol/L (136-145)
[2024-10-24] MEDS: SODIUM CHLORIDE 1 GM TABLET PO ×2 (08:43→21:29)
[2024-10-24] MEDS: TAMSULOSIN HCL 0.4 MG CAPSULE PO (08:43)
[2024-10-24] MEDS: Magnesium Sulfate 4 GM Ivpb 4 GM/50 ML BAG IV (08:43)
[2024-10-24] MEDS: HEPARIN SOD INJ 5000 UNIT/ML VIAL SC ×2 (08:44→20:17)
[2024-10-24] MEDS: POLYETHYLENE GLYCOL 17 GM PACKET PO (08:44)
[2024-10-24] MEDS: NAPH,KPH MBDB 1 PACKET (1.5 GM) PO ×2 (08:44→20:17)
[2024-10-24] MEDS: amLODIPine BESYLATE 5 MG TABLET 10 MG PO (08:44)
[2024-10-24 10:40] LABS: Sodium 121 mMol/L (136-145)
[2024-10-24 12:32] LABS: Sodium 121 mMol/L (136-145)
--- NOTE | 2024-10-24 13:30 | PC.SS ---
Update: Patient has been downgraded from ICU.
--- NOTE | 2024-10-24 14:21 | PD.RESPRO ---
Documentation for date of: 10/24/24 Subjective Subjective Interval history: Ms. Royal is a 79-year-old female patient with past medical history of hypertension, diabetes mellitus, hyperlipidemia, presented to the ED due to generalized weakness for 3 days associated with decreased oral intake and excessive urination. Patient reported that his symptoms started gradually however it kept worsening over time. Today she went to her PCP however as per the daughter he did not do any blood work for the patient for that reason they decided to come to the ED. The daughter denied any episodes of seizure or loss of consciousness denied any fall down however she reported that for the past few days she started to feel dizzy. Denied any vomiting or diarrhea, denied any new medications added to her regimen. Home medications: Metformin, glipizide, lisinopril/hydrochlorothiazide, Jardiance, meclizine, montelukast, senna, amlodipine ED course: At the ED patient blood pressure was elevated 184/78, she was given 1 dose of hydralazine 20 mg IV. Heart rate in the high normal range between 90s and 110s, normal sinus. WBC was elevated 15, hemoglobin stable at 13 and sodium was found to be 110 repeat labs to rule out any artifact also came back 110. Patient was started at the ED with 30 mL/h 3 percent NS. 10/23/2024 patient currently seen in ICU. Patient was seen and examined at bedside, denied any new symptoms, no shivering or chills no episodes of seizures or abnormal movements. Sodium level for the past 24 hours was corrected by 5 mEq up to 115, goal for tomorrow is to be corrected up to 122. Sodium checks can be changed from every hours to every 2 hours at this time. 10/24/2023 patient was seen and examined at bedside. Patient denied any new symptoms. Her sodium continue to improve and at this time her sodium level is 121. Will hold on the hypertonic saline at this time and will start the patient on sodium tablets 1 g twice daily. We can change the sodium checks and instead of every 2 hours to every 4 hours at this time. Exam Vital Signs Temp Pulse Resp BP Pulse Ox O2 Del Method 98.0 F 102 H 16 168/81 H 96 Room Air 10/24/24 08:00 10/24/24 12:00 10/24/24 11:00 10/24/24 11:00 10/24/24 11:00 10/24/24 11:00 Narrative Exam GEN: [place] speaker, AOx3, able to speak full sentences HEENT: NC/AC, oral mucosa moist, neck supple CVS: RRR, S1-S2 present, no murmurs appreciated RESP: Good air entry bilaterally. GI: soft,non distended, non tender, NBS MSK: Generalized weakness noticed however able to move all 4 limbs, no lower extremity edema SKIN: warm and dry COVERER: No focal neurological deficit, CN II-XII and Sensation grossly intact. Objective Labs 10/25/24 03:15 10/25/24 03:15 Labs: Laboratory Results - last 24 hr 10/23/24 10/23/24 10/23/24 14:30 15:42 16:34 WBC RBC Hgb Hct MCV MCH MCHC RDW Std Deviation Plt Count Neut % (Auto) Lymph % (Auto) [place] % (Auto) Eos % (Auto) Baso % (Auto) Neut # (Auto) Lymph # (Auto) [place] # (Auto) Eos # (Auto) Baso # (Auto) Immature Gran # (Auto) Absolute Nucleated RBC Immature Gran % Nucleated RBC % Sodium 115 L* 114 L* 115 L* Potassium Chloride Carbon Dioxide Anion Gap BUN Creatinine Estim Creat Clear Calc eGFR BUN/Creatinine Ratio Glucose Calculated Osmolality Calcium Corrected Calcium Phosphorus Magnesium Total Bilirubin AST ALT Alkaline Phosphatase Total Protein Albumin Globulin Albumin/Globulin Ratio 10/23/24 10/23/24 10/23/24 17:36 19:00 21:03 WBC RBC Hgb Hct MCV MCH MCHC RDW Std Deviation Plt Count Neut % (Auto) Lymph % (Auto) [place] % (Auto) Eos % (Auto) Baso % (Auto) Neut # (Auto) Lymph # (Auto) [place] # (Auto) Eos # (Auto) Baso # (Auto) Immature Gran # (Auto) Absolute Nucleated RBC Immature Gran % Nucleated RBC % Sodium 116 L* 117 L* 120 L Potassium Chloride Carbon Dioxide Anion Gap BUN Creatinine Estim Creat Clear Calc eGFR BUN/Creatinine Ratio Glucose Calculated Osmolality Calcium Corrected Calcium Phosphorus Magnesium Total Bilirubin AST ALT Alkaline Phosphatase Total Protein Albumin Globulin Albumin/Globulin Ratio 10/23/24 10/24/24 10/24/24 22:56 00:53 03:12 WBC RBC Hgb Hct MCV MCH MCHC RDW Std Deviation Plt Count Neut % (Auto) Lymph % (Auto) [place] % (Auto) Eos % (Auto) Baso % (Auto) Neut # (Auto) Lymph # (Auto) [place] # (Auto) Eos # (Auto) Baso # (Auto) Immature Gran # (Auto) Absolute Nucleated RBC Immature Gran % Nucleated RBC % Sodium 121 L 121 L 121 L Potassium Chloride Carbon Dioxide Anion Gap BUN Creatinine Estim Creat Clear Calc eGFR BUN/Creatinine Ratio Glucose Calculated Osmolality Calcium Corrected Calcium Phosphorus Magnesium Total Bilirubin AST ALT Alkaline Phosphatase Total Protein Albumin Globulin Albumin/Globulin Ratio 10/24/24 10/24/24 10/24/24 05:20 06:45 10:00 WBC 8.1 RBC 4.27 Hgb 11.9 L Hct 33.1 L MCV 78 L MCH 27.9 MCHC 36.0 RDW Std Deviation 35.6 L Plt Count 288 Neut % (Auto) 73 Lymph % (Auto) 17 [place] % (Auto) 9 Eos % (Auto) 0 Baso % (Auto) 0 Neut # (Auto) 5.9 Lymph # (Auto) 1.4 [place] # (Auto) 0.8 Eos # (Auto) 0.0 Baso # (Auto) 0.0 Immature Gran # (Auto) 0.02 H Absolute Nucleated RBC 0.00 Immature Gran % 0 Nucleated RBC % 0 Sodium 121 L 121 L 121 L Potassium 3.9 D Chloride 91 L Carbon Dioxide 22.8 Anion Gap 7 BUN 12 Creatinine 0.4 L Estim Creat Clear Calc 103.2 eGFR > 60 BUN/Creatinine Ratio 30 H Glucose 142 H Calculated Osmolality 245 L Calcium 8.6 Corrected Calcium 8.7 Phosphorus 1.9 L Magnesium 1.5 L Total Bilirubin 0.6 AST 27 ALT 15 Alkaline Phosphatase 58 Total Protein 6.3 Albumin 3.9 Globulin 2.4 Albumin/Globulin Ratio 1.6 10/24/24 11:38 WBC RBC Hgb Hct MCV MCH MCHC RDW Std Deviation Plt Count Neut % (Auto) Lymph % (Auto) [place] % (Auto) Eos % (Auto) Baso % (Auto) Neut # (Auto) Lymph # (Auto) [place] # (Auto) Eos # (Auto) Baso # (Auto) Immature Gran # (Auto) Absolute Nucleated RBC Immature Gran % Nucleated RBC % Sodium 121 L Potassium Chloride Carbon Dioxide Anion Gap BUN Creatinine Estim Creat Clear Calc eGFR BUN/Creatinine Ratio Glucose Calculated Osmolality Calcium Corrected Calcium Phosphorus Magnesium Total Bilirubin AST ALT Alkaline Phosphatase Total Protein Albumin Globulin Albumin/Globulin Ratio Quality Measures Quality Measures VTE prophylaxis Advance care planning discussed with:: patient Assessment & Plan Assessment Current Active Medications: Generic Name Dose Route Start Last Admin Trade Name Barbara PRN Reason Stop Dose Admin Acetaminophen 1,000 mg 10/22/24 19:04 10/22/24 19:42 Acetaminophen 500 Mg Tablet PO 11/21/24 19:03 1,000 mg Q6HR PRN Administration PAIN Amlodipine Besylate 10 mg 10/24/24 09:00 10/24/24 08:44 Amlodipine Besylate 5 Mg Tablet PO 11/23/24 08:59 10 mg QDAY JARETT Administration Dextrose 25 ml 10/22/24 14:02 Dextrose 50%-Water Inj 50 Ml Syringe IV 11/21/24 14:01 Q15MIN PRN BG 50-70 responsive npo pt Dextrose 50 ml 10/22/24 14:02 Dextrose 50%-Water Inj 50 Ml Syringe IV 11/21/24 14:01 Q15MIN PRN BG <50 OR BG <70 & pt unresponsive Glucagon 1 mg 10/22/24 14:02 Glucagon Inj 1 Mg Vial IM Q15MIN PRN BG <70, and no IV access Heparin Sodium (Porcine) 5,000 unit 10/24/24 09:00 10/24/24 08:44 Heparin Sod Inj 5000 Unit/Ml Vial SC 11/07/24 08:59 5,000 unit Q12HR JARETT Administration Insulin Human Lispro 0 unit 10/22/24 17:00 10/24/24 11:56 Insulin Lispro (Admelog) 1 Unit/0.01 Ml Unit SC 11/21/24 16:59 4 unit ACHS JARETT Administration Protocol Melatonin 3 mg 10/22/24 21:00 10/23/24 21:34 Melatonin 3 Mg Tablet PO 11/21/24 20:59 3 mg HS JARETT Administration Ondansetron HCl 4 mg 10/22/24 14:02 Ondansetron Inj 2 Mg/Ml Inj 2 Ml IV 11/21/24 14:01 Q6H PRN NAUSEA OR VOMITING Protocol Polyethylene Glycol 17 gm 10/24/24 09:00 10/24/24 08:44 Polyethylene Glycol 17 Gm Packet PO 11/23/24 08:59 17 gm QDAY JARETT Administration Potassium Phos/Sodium Phos 1 packet 10/24/24 09:00 10/24/24 08:44 [facility] Mbdb 1 Packet (1.5 Gm) PO 10/24/24 21:01 1 packet BID JARETT Administration Sennosides 1 tab 10/22/24 14:07 Senna/Docusate Sod 1 Tab Tablet PO 11/21/24 14:06 BID PRN Constipation Protocol Sodium Chloride 1 gm 10/24/24 09:00 10/24/24 08:43 Sodium Chloride 1 Gm Tablet PO 11/23/24 08:59 1 gm BID JARETT Administration Tamsulosin HCl 0.4 mg 10/23/24 10:30 10/24/24 08:43 Tamsulosin Hcl 0.4 Mg Capsule PO 11/22/24 10:29 0.4 mg QDAY JARETT Administration Plan Summary:A 79-year-old female patient with past medical history of hypertension, diabetes mellitus, hyperlipidemia, presented to the ED due to generalized weakness for 3 days associated with decreased oral intake and excessive urination. Patient reported that his symptoms started gradually however it kept worsening over time. Patient was admitted to the ICU for severe hyponatremia. Assessment and plan #Generalized body weakness most likely secondary to severe hyponatremia #Severe hypoosmolar hyponatremia #Mild hyperglycemia #Hypomagnesemia On presentation patient was found to have generalized weakness, No neurological symptoms no seizures No signs of fluid overload Sodium level found to be 110 no previous labs in her chart, Blood glucose 215, serum osmolality 230, magnesium level 1.1 Plan ?Switch from hypertonic saline to sodium tablets 1 g twice daily ? May change Sodium checks every 4 hours at this time ? Hold home medications including hydrochlorothiazide/lisinopril, hold all oral antidiabetic medications including Jardiance ? Neurochecks every shift ? Seizures precautions ? Strict in and out ? Replete other electrolytes as needed #Hyperglycemia #Hypertension #History of diabetes mellitus Plan ? Follow-up with the primary team recommendations. - Patient's plan and care discussed with my attending, Dr. Mili Frank MD Internal Medicine PGY-2 Attending Provider Attestation/Addendum Patient seen and examined with resident physician Dr. Hernandez. Note reviewed, agree with findings and recommendations. Patient presented with severe symptomatic hyponatremia. Hypertonic saline at 40 mL/h started. Will monitor serum sodium every 2 hours with no more than 6 mEq rise in the next 24 hours. Plan of care discussed with ICU team. 10/24Sodium improved from 115-122. Off hypertonic saline. Goal 126 in the next 24 hours. Add salt tablets. No need for hypertonic saline. Patient clinically stable. Will be downgraded.
--- NOTE | 2024-10-24 14:57 | PD.RESEVENT ---
Documentation for date of: 10/24/24 Event Note Event Note: Signout received 10/24/2024 79 years old Citizen [place]-speaking female with past medical history of hypertension, type 2 diabetes mellitus, hyperlipidemia presented to the ED complaining of worsening weakness and dizziness. Patient was admitted to ICU due to severe hyponatremia admission sodium was 110. Patient was started on hypertonic saline with adequate correction of sodium levels. At this time sodium is 121, will be started on salt tablets and downgraded to the floors. Hospitalist team aware and will resume care on 10/25/2024. Edward Roberts MD PGY-1
[2024-10-24 15:39] LABS: Sodium 123 mMol/L (136-145)
--- NOTE | 2024-10-24 16:07 | ESPR_ITS ---
<Statement entered by Livia James DO - 10/24/24 22:19> Senior attestation: Patient was examined and case was reviewed with team including attending physician. Note reviewed, I agree with most of its contents and agree with the patient's care. Sodium noted to improve to 121 today, hypertonic saline was stopped overnight. Nephrology team following, has advised salt tablets BID with fluid restriction. Patient will be downgraded to medical floors starting on 10/25/2024, advise continued sodium monitoring at q4 hours, MRI head/brain remains pending, and physical therapy evaluation. Livia James DO PGY-3 Documentation for date of: 10/24/24 Subjective Subjective Interval history: Patient is 79 years old Angolan-speaking female with past medical history of hypertension, type 2 diabetes mellitus, hyperlipidemia presented to the ED complaining of worsening weakness and dizziness. Patient cannot recall when she started developing the symptoms but it was worsening over time. She reported that she also developed significant thirst and was drinking plenty of water daily, her urine output has significantly increased too. Patient denied any fever, chills, changing in vision or hearing, headache, dysuria symptoms, shortness of breath. Patient denies any falls or trauma. On admission patient hypertensive with blood pressure 184/78 and given hydralazine IV in the ED. Labs showed WBCs 15.5, sodium 110, chloride 76, glucose 215, osmolarity 230, uric acid 3.1, magnesium 1.1, phosphorus 2.8. Troponin I negative. Chest x-ray showed bronchitis pattern. EKG showed sinus tachycardia with RBBB. 10/23/24:Patient seen and examined at bedside, reports no new complaints/symptoms, sodium improved to 114 in 24 hours, correction by 4, within the goal correction rate of 4-6 in 24 hours, will continue to correct with similar goal, anticipated sodium goal 120-122 in a.m. otherwise patient at bedside reported she has been drinking 3 tall bottles of water on a daily basis, using hydrochlorothiazide and empagliflozin at home, urine sodium 41.1, suspicion of hyponatremia in setting of polydipsia and diuretic use. Will continue sodium checks every hour and monitor sodium closely. Patient at bedside does complain of insomnia and depression, reports feeling depressed at times, sad at times and tired most of the day, complains of low energy at home, denies any suicidal/homicidal ideations, will be started on melatonin at bedtime for insomnia. Pending MRI, will continue to monitor patient. 10/24/24: Patient seen and examined at bedside, overnight was given hydroxyzine for anxiety, patient sodium has improved remarkably, sodium this morning 121, case discussed with nephrology patient started on salt tablets twice daily, will continue fluid restriction, patient otherwise complains of dizziness bedside testing for BPPV negative, patient does use meclizine at home. Patient complains of insomnia, depression will be started on mirtazapine, will continue to monitor sodium every 4 hours, goal sodium tomorrow 125-127, pending MRI, patient is stable for downgrade to floors. Hospitalist team will resume care for patient in the morning. Pending physical therapy. Exam Vital Signs Temp Pulse Resp BP Pulse Ox O2 Del Method 98.0 F 102 H 16 168/81 H 96 Room Air 10/24/24 08:00 10/24/24 12:00 10/24/24 11:00 10/24/24 11:00 10/24/24 11:00 10/24/24 11:00 Narrative Exam Gen: Well-developed and well-nourished elderly female. HEENT: NCAT, PERRLA, EOMI, MMM, anicteric conjunctivae. CVS: normal S1 and S2. Regular tachycardia. No M/R/G. Resp: Decreased breath sounds B/L. No rhonchi, rales, crackles or wheezing. Abd: soft, obese, non-tender, non-distended. BS+ in all 4 quadrants. MSK: Good ROM in BUE & BLE. No edema or rash. Neuro: CN II-XII grossly intact. Strength 5/5 in BUE & BLE. Alert and oriented x3. Psych: appropriate mood and affect. Objective Labs 10/25/24 03:15 10/25/24 03:15 Labs: Laboratory Results - last 24 hr 10/23/24 10/23/24 10/23/24 15:42 16:34 17:36 WBC RBC Hgb Hct MCV MCH MCHC RDW Std Deviation Plt Count Neut % (Auto) Lymph % (Auto) [place] % (Auto) Eos % (Auto) Baso % (Auto) Neut # (Auto) Lymph # (Auto) [place] # (Auto) Eos # (Auto) Baso # (Auto) Immature Gran # (Auto) Absolute Nucleated RBC Immature Gran % Nucleated RBC % Sodium 114 L* 115 L* 116 L* Potassium Chloride Carbon Dioxide Anion Gap BUN Creatinine Estim Creat Clear Calc eGFR BUN/Creatinine Ratio Glucose Calculated Osmolality Calcium Corrected Calcium Phosphorus Magnesium Total Bilirubin AST ALT Alkaline Phosphatase Total Protein Albumin Globulin Albumin/Globulin Ratio 10/23/24 10/23/24 10/23/24 19:00 21:03 22:56 WBC RBC Hgb Hct MCV MCH MCHC RDW Std Deviation Plt Count Neut % (Auto) Lymph % (Auto) [place] % (Auto) Eos % (Auto) Baso % (Auto) Neut # (Auto) Lymph # (Auto) [place] # (Auto) Eos # (Auto) Baso # (Auto) Immature Gran # (Auto) Absolute Nucleated RBC Immature Gran % Nucleated RBC % Sodium 117 L* 120 L 121 L Potassium Chloride Carbon Dioxide Anion Gap BUN Creatinine Estim Creat Clear Calc eGFR BUN/Creatinine Ratio Glucose Calculated Osmolality Calcium Corrected Calcium Phosphorus Magnesium Total Bilirubin AST ALT Alkaline Phosphatase Total Protein Albumin Globulin Albumin/Globulin Ratio 10/24/24 10/24/24 10/24/24 00:53 03:12 05:20 WBC 8.1 RBC 4.27 Hgb 11.9 L Hct 33.1 L MCV 78 L MCH 27.9 MCHC 36.0 RDW Std Deviation 35.6 L Plt Count 288 Neut % (Auto) 73 Lymph % (Auto) 17 [place] % (Auto) 9 Eos % (Auto) 0 Baso % (Auto) 0 Neut # (Auto) 5.9 Lymph # (Auto) 1.4 [place] # (Auto) 0.8 Eos # (Auto) 0.0 Baso # (Auto) 0.0 Immature Gran # (Auto) 0.02 H Absolute Nucleated RBC 0.00 Immature Gran % 0 Nucleated RBC % 0 Sodium 121 L 121 L 121 L Potassium 3.9 D Chloride 91 L Carbon Dioxide 22.8 Anion Gap 7 BUN 12 Creatinine 0.4 L Estim Creat Clear Calc 103.2 eGFR > 60 BUN/Creatinine Ratio 30 H Glucose 142 H Calculated Osmolality 245 L Calcium 8.6 Corrected Calcium 8.7 Phosphorus 1.9 L Magnesium 1.5 L Total Bilirubin 0.6 AST 27 ALT 15 Alkaline Phosphatase 58 Total Protein 6.3 Albumin 3.9 Globulin 2.4 Albumin/Globulin Ratio 1.6 0110/24/24 10/24/24 06:45 10:00 11:38 WBC RBC Hgb Hct MCV MCH MCHC RDW Std Deviation Plt Count Neut % (Auto) Lymph % (Auto) [place] % (Auto) Eos % (Auto) Baso % (Auto) Neut # (Auto) Lymph # (Auto) [place] # (Auto) Eos # (Auto) Baso # (Auto) Immature Gran # (Auto) Absolute Nucleated RBC Immature Gran % Nucleated RBC % Sodium 121 L 121 L 121 L Potassium Chloride Carbon Dioxide Anion Gap BUN Creatinine Estim Creat Clear Calc eGFR BUN/Creatinine Ratio Glucose Calculated Osmolality Calcium Corrected Calcium Phosphorus Magnesium Total Bilirubin AST ALT Alkaline Phosphatase Total Protein Albumin Globulin Albumin/Globulin Ratio 10/24/24 15:18 WBC RBC Hgb Hct MCV MCH MCHC RDW Std Deviation Plt Count Neut % (Auto) Lymph % (Auto) [place] % (Auto) Eos % (Auto) Baso % (Auto) Neut # (Auto) Lymph # (Auto) [place] # (Auto) Eos # (Auto) Baso # (Auto) Immature Gran # (Auto) Absolute Nucleated RBC Immature Gran % Nucleated RBC % Sodium 123 L Potassium Chloride Carbon Dioxide Anion Gap BUN Creatinine Estim Creat Clear Calc eGFR BUN/Creatinine Ratio Glucose Calculated Osmolality Calcium Corrected Calcium Phosphorus Magnesium Total Bilirubin AST ALT Alkaline Phosphatase Total Protein Albumin Globulin Albumin/Globulin Ratio Quality Measures Quality Measures VTE prophylaxis Advance care planning discussed with:: patient Assessment & Plan Assessment Current Active Medications: Generic Name Dose Route Start Last Admin Trade Name Freq PRN Reason Stop Dose Admin Acetaminophen 1,000 mg 10/22/24 19:04 10/22/24 19:42 Acetaminophen 500 Mg Tablet PO 11/21/24 19:03 1,000 mg Q6HR PRN Administration PAIN Amlodipine Besylate 10 mg 10/24/24 09:00 10/24/24 08:44 Amlodipine Besylate 5 Mg Tablet PO 11/23/24 08:59 10 mg QDAY JARETT Administration Dextrose 25 ml 10/22/24 14:02 Dextrose 50%-Water Inj 50 Ml Syringe IV 11/21/24 14:01 Q15MIN PRN BG 50-70 responsive npo pt Dextrose 50 ml 10/22/24 14:02 Dextrose 50%-Water Inj 50 Ml Syringe IV 11/21/24 14:01 Q15MIN PRN BG <50 OR BG <70 & pt unresponsive Glucagon 1 mg 10/22/24 14:02 Glucagon Inj 1 Mg Vial IM Q15MIN PRN BG <70, and no IV access Heparin Sodium (Porcine) 5,000 unit 10/24/24 09:00 10/24/24 08:44 Heparin Sod Inj 5000 Unit/Ml Vial SC 11/07/24 08:59 5,000 unit Q12HR JARETT Administration Insulin Human Lispro 0 unit 10/22/24 17:00 10/24/24 11:56 Insulin Lispro (Admelog) 1 Unit/0.01 Ml Unit SC 11/21/24 16:59 4 unit ACHS JARETT Administration Protocol Melatonin 3 mg 10/22/24 21:00 10/23/24 21:34 Melatonin 3 Mg Tablet PO 11/21/24 20:59 3 mg HS JARETT Administration Ondansetron HCl 4 mg 10/22/24 14:02 Ondansetron Inj 2 Mg/Ml Inj 2 Ml IV 11/21/24 14:01 Q6H PRN NAUSEA OR VOMITING Protocol Polyethylene Glycol 17 gm 10/24/24 09:00 10/24/24 08:44 Polyethylene Glycol 17 Gm Packet PO 11/23/24 08:59 17 gm QDAY JARETT Administration Potassium Phos/Sodium Phos 1 packet 10/24/24 09:00 10/24/24 08:44 [facility] Mbdb 1 Packet (1.5 Gm) PO 10/24/24 21:01 1 packet BID JARETT Administration Sennosides 1 tab 10/22/24 14:07 Senna/Docusate Sod 1 Tab Tablet PO 11/21/24 14:06 BID PRN Constipation Protocol Sodium Chloride 1 gm 10/24/24 09:00 10/24/24 08:43 Sodium Chloride 1 Gm Tablet PO 11/23/24 08:59 1 gm BID AJRETT Administration Tamsulosin HCl 0.4 mg 10/23/24 10:30 10/24/24 08:43 Tamsulosin Hcl 0.4 Mg Capsule PO 11/22/24 10:29 0.4 mg QDAY JARETT Administration Plan Assessment and Plan: Summary: Patient is 79 years old [place]olan-speaking female with past medical history of hypertension, type 2 diabetes mellitus, hyperlipidemia presented to the ED complaining of worsening weakness and dizziness, was found to have severe hyponatremia of 110 and was admitted to ICU for further management. Neuro: #Chronic dizziness. Patient has chronic dizziness for many years, reason is unknown, was previously prescribed meclizine. Her dizziness has worsened within the last several weeks. #Depression Patient reports feeling sad at home, complains of anxiety at home, complains of insomnia and feeling depressed at times, not on any antidepressant currently. Will be started on melatonin at bedtime for insomnia today Plan Patient started on mirtazapine daily Continue melatonin at bedtime Cardiovascular: #History of hypertension. On admission blood pressure 184/78. Patient given hydralazine 10 mg IV x 1 for hypertension. Plan: -Hydralazine IV as needed. -Home amlodipine dose of 5 mg p.o. daily, increased amlodipine to 10 mg daily -Home lisinopril hydrochlorothiazide was held. Consider resuming lisinopril if patient is hypertensive. -Recommended discontinuing hydrochlorothiazide on discharge Respiratory: No active problem. Gastrointestinal: No active problem. Renal: #Severe hypoosmolar hypochloremic hyponatremia. #Hypokalemia #Hypomagnesemia. On admission sodium 110, potassium 4.3, chloride 76, glucose 215, uric acid 3.1, BUN 14, magnesium 1.1, calculated osmolarity 230. Patient reports polyuria and polydipsia. Patient is on lisinopril hydrochlorothiazide at home. Urine electrolytes show urine creatinine 127, urine sodium 41.1, urine potassium 55, urine chloride 45.4, limited study as was done after patient was given hypertonic saline Plan: -Started salt tablets twice daily -Fluid restriction 1.5 L daily. -Strict ROZ. -Nephrology is following. -Patient complains of oliguria, started on tamsulosin 0.4 mg -Follow-up with skull splitter outpatient -Sodium check every 4 hours -Discontinue hydrochlorothiazide Endocrine: #History of type 2 diabetes mellitus. At home takes Jardiance, glipizide and metformin. On admission glucose 202. Hemoglobin A1c 6.4 Plan: -Medications held. -Started on sliding scale insulin. -Daily Accu-Cheks. -Hypoglycemia protocol in place. Infectious Disease: #Asymptomatic bacteriuria Urinalysis shows urine protein 3+, ketones 2+, blood 3+, nitrite negative, leukocyte esterase positive Urine RBC 505, urine WBC 290, urine bacteria 1+, yeast positive Patient denies any dysuria Ordered urine culture, possibility of E. coli colonization Hematology/Oncology: No active problem. Diet: Carb consistent diet with fluid restriction 1.5 L. DVT prophylaxis: Heparin. GI prophylaxis: None. Code status: Full code. Disposition: Downgraded to telemetry, hospitalist team will resume care in a.m. Plan of care discussed with ICU attending Dr. Wharton and my senior Dr James PGY-3 Sanjuana Pablo PGY1 Attending Provider Attestation/Addendum Patient seen and examined with above resident, Sanjuana Pablo MD. I agree with the findings, assessment, plan of care as documented except for any differences below. Patient continues to have some improvement in sodium. Will discontinuing hypertonic saline as the staff did yesterday afternoon once achieving goal. Patient remains at appropriate rate of correction of 0.5 mEq every hour. Patient achieved goal of being above 120 this morning and will be transition to medicine bethea for ongoing management. Underlying etiology remains elusive and is likely multifactorial in combination of polydipsia, SIADH for which further workup needs to be done, as well as diuretic use in the form of combination therapy with hydrochlorothiazide. Patient without any neurologic deficits and no evidence of seizure. Her risk for this as significantly reduced and given the rate of correction and a controlled setting risk of demyelination has been limited. Patient can continue to have serial sodiums check until she normaliz in the coming days. Nephrology has been following in the assisted greatly with the care of the patient, appreciated. Also notably is having urinary retention, minimize any anticholinergic agents. Diabetes management with insulin while hospitalized. Patient and family updated at bedside. Total critical care time: I personally spent 35 minutes for review of physiologic parameters, directing plan of care throughout the day, coordination of care with other subspecialties, and counseling patient/family at bedside. This is exclusive of time spent teaching housestaff performing any separate billable procedures. Patient continues to require critical care services for close monitoring of severe hyponatremia warranting ongoing management only billable the intensive care unit due to frequency of lab checks and neurologic precautions.
[2024-10-24] MEDS: MIRTAZAPINE 15 MG TABLET PO (17:17)
[2024-10-24 19:13] LABS: Sodium 122 mMol/L (136-145)
[2024-10-24] MEDS: MELATONIN 3 MG TABLET PO (20:17)
[2024-10-24 23:25] LABS: Sodium 126 mMol/L (136-145)
[2024-10-25] VITALS (8 sets, daily range): BP systolic 121–142; BP diastolic 64–85; PULSE 83–101; RESP 14–19; TEMP 35.9–36.4; O2SAT 93–98; BMI 28.9
[2024-10-25 03:22] LABS: Basophils # (Auto) 0.1 Thou/mm3 (0.0-0.2); Basophils % (Auto) 1 % (0-2.5); Eosinophils # (Auto) 0.1 Thou/mm3 (0.0-0.5); Eosinophils % (Auto) 1 % (0-10); Hemoglobin 11.5 g/dL (12.0-16.0); Immature Granulocytes % (Auto) 1 % (0-0); Immature Granulocytes Auto 0.04 Thou/mm3 (0.00-0.00); Lymphocytes # (Auto) 1.8 Thou/mm3 (1.0-4.8); Lymphocytes % (Auto) 23 % (10-50); Mean Corpuscular HGB Conc 35.9 g/dl (31.0-37.0); Mean Corpuscular Volume 78 fL (80-100); Monocytes # (Auto) 0.8 Thou/mm3 (0.0-0.8); Monocytes % (Auto) 10 % (0-12); Neutrophils # (Auto) 5.3 Thou/mm3 (1.8-7.7); Neutrophils % (Auto) 66 % (37-80); Nucleated Red Blood Cell % 0 /100 WBC (0); Platelet Count 281 Thou/mm3 (140-440); RDW Standard Deviation 37.2 fL (36.4-46.3)
[2024-10-25 03:44] LABS: Alanine Aminotransferase 16 U/L (10-49); Albumin, Serum 3.8 gm/dL (3.4-4.8); Albumin/Globulin Ratio 1.7 (1.2-2.2); Alkaline Phosphatase 56 U/L (46-116); Anion Gap 6 (7-16); Aspartate Amino Transferase 20 U/L (0-34); BUN/Creatinine Ratio 33 Ratio (12-20); Bilirubin,Total 0.4 mg/dL (0.3-1.2); Blood Urea Nitrogen 13 mg/dL (9-23); Calcium 8.6 mg/dL (8.3-10.6); Calcium (Corrected) 8.8 mg/dL (8.5-10.1); Carbon Dioxide 25.1 mMol/L (20.0-31.0); Chloride 95 mMol/L (98-107); Creatinine (Component) 0.4 mg/dL (0.6-1.3); Estimated Creatinine Clearance 103.2 mL/min (>60); Globulin 2.2 gm/dL (2.3-3.5); Glucose 172 mg/dL (74-106); Magnesium 1.8 mg/dL (1.6-2.6); Osmolality,Calculated 257 (275-295); Phosphorous 3.1 mg/dL (2.4-5.1); Potassium 3.9 mMol/L (3.4-5.1); Sodium 126 mMol/L (136-145); eGFR > 60 See Note
[2024-10-25] MEDS: INSULIN LISPRO (AdmeLOG) 1 UNIT/0.01 ML UNIT SC ×4 (07:46→20:04)
[2024-10-25 08:23] LABS: Sodium 126 mMol/L (136-145)
[2024-10-25] MEDS: amLODIPine BESYLATE 5 MG TABLET 10 MG PO (09:04)
[2024-10-25] MEDS: MIRTAZAPINE 15 MG TABLET PO (09:05)
[2024-10-25] MEDS: INSULIN GLARGINE (Lantus) 5 UNIT/0.05 ML (PER 5 UNITS) 10 UNIT SC (09:05)
[2024-10-25] MEDS: TAMSULOSIN HCL 0.4 MG CAPSULE PO (09:05)
[2024-10-25] MEDS: POLYETHYLENE GLYCOL 17 GM PACKET PO (09:05)
[2024-10-25] MEDS: HEPARIN SOD INJ 5000 UNIT/ML VIAL SC ×2 (09:05→20:03)
[2024-10-25] MEDS: SODIUM CHLORIDE 1 GM TABLET PO ×2 (09:05→20:03)
--- NOTE | 2024-10-25 09:58 | ESPR_ITS ---
Documentation for date of: 10/25/24 Subjective Subjective Interval history: Ms. Royal is a 79-year-old female patient with past medical history of hypertension, diabetes mellitus, hyperlipidemia, presented to the ED due to generalized weakness for 3 days associated with decreased oral intake and excessive urination. Patient reported that his symptoms started gradually however it kept worsening over time. Today she went to her PCP however as per the daughter he did not do any blood work for the patient for that reason they decided to come to the ED. The daughter denied any episodes of seizure or loss of consciousness denied any fall down however she reported that for the past few days she started to feel dizzy. Denied any vomiting or diarrhea, denied any new medications added to her regimen. Home medications: Metformin, glipizide, lisinopril/hydrochlorothiazide, Jardiance, meclizine, montelukast, senna, amlodipine ED course: At the ED patient blood pressure was elevated 184/78, she was given 1 dose of hydralazine 20 mg IV. Heart rate in the high normal range between 90s and 110s, normal sinus. WBC was elevated 15, hemoglobin stable at 13 and sodium was found to be 110 repeat labs to rule out any artifact also came back 110. Patient was started at the ED with 30 mL/h 3 percent NS. 10/23/2024 patient currently seen in ICU. Patient was seen and examined at bedside, denied any new symptoms, no shivering or chills no episodes of seizures or abnormal movements. Sodium level for the past 24 hours was corrected by 5 mEq up to 115, goal for tomorrow is to be corrected up to 122. Sodium checks can be changed from every hours to every 2 hours at this time. 10/24/2024 patient was seen and examined at bedside. Patient denied any new symptoms. Her sodium continue to improve and at this time her sodium level is 121. Will hold on the hypertonic saline at this time and will start the patient on sodium tablets 1 g twice daily. We can change the sodium checks and instead of every 2 hours to every 4 hours at this time. 10/25/2024 patient was seen and examined at bedside. Denied any new symptoms. Was lying in bed comfortably. Vitally patient is stable. Her sodium persistently at 126 for the past 12 hours on salt tablets 1 g twice daily. As soon as the patient sodium goes above 128 she is cleared to be discharged from our standpoint, patient will need to hold hydrochlorothiazide and Jardiance as it may be the reason that she developed hyponatremia and the primary team has to find a substitute for the patient. Exam Vital Signs Temp Pulse Resp BP Pulse Ox O2 Del Method 97.3 F 97 19 142/85 H 96 Room Air 10/25/24 08:00 10/25/24 09:04 10/25/24 08:00 10/25/24 09:04 10/25/24 08:00 10/25/24 08:00 Objective Labs 10/26/24 08:45 10/26/24 08:45 Labs: Laboratory Results - last 24 hr 10/22/24 10/24/24 10/24/24 22:14 10:00 11:38 WBC RBC Hgb Hct MCV MCH MCHC RDW Std Deviation Plt Count Neut % (Auto) Lymph % (Auto) [place] % (Auto) Eos % (Auto) Baso % (Auto) Neut # (Auto) Lymph # (Auto) [place] # (Auto) Eos # (Auto) Baso # (Auto) Immature Gran # (Auto) Absolute Nucleated RBC Immature Gran % Nucleated RBC % Sodium 121 L 121 L Potassium Chloride Carbon Dioxide Anion Gap BUN Creatinine Estim Creat Clear Calc eGFR BUN/Creatinine Ratio Glucose Calculated Osmolality Calcium Corrected Calcium Phosphorus Magnesium Total Bilirubin AST ALT Alkaline Phosphatase Total Protein Albumin Globulin Albumin/Globulin Ratio Urine Osmolality Cancelled 10/24/24 10/24/24 10/24/24 15:18 18:50 23:06 WBC RBC Hgb Hct MCV MCH MCHC RDW Std Deviation Plt Count Neut % (Auto) Lymph % (Auto) [place] % (Auto) Eos % (Auto) Baso % (Auto) Neut # (Auto) Lymph # (Auto) [place] # (Auto) Eos # (Auto) Baso # (Auto) Immature Gran # (Auto) Absolute Nucleated RBC Immature Gran % Nucleated RBC % Sodium 123 L 122 L 126 L Potassium Chloride Carbon Dioxide Anion Gap BUN Creatinine Estim Creat Clear Calc eGFR BUN/Creatinine Ratio Glucose Calculated Osmolality Calcium Corrected Calcium Phosphorus Magnesium Total Bilirubin AST ALT Alkaline Phosphatase Total Protein Albumin Globulin Albumin/Globulin Ratio Urine Osmolality 10/25/24 10/25/24 03:15 07:30 WBC 8.0 RBC 4.10 Hgb 11.5 L Hct 32.0 L MCV 78 L MCH 28.0 MCHC 35.9 RDW Std Deviation 37.2 Plt Count 281 Neut % (Auto) 66 Lymph % (Auto) 23 [place] % (Auto) 10 Eos % (Auto) 1 Baso % (Auto) 1 Neut # (Auto) 5.3 Lymph # (Auto) 1.8 [place] # (Auto) 0.8 Eos # (Auto) 0.1 Baso # (Auto) 0.1 Immature Gran # (Auto) 0.04 H Absolute Nucleated RBC 0.00 Immature Gran % 1 H Nucleated RBC % 0 Sodium 126 L 126 L Potassium 3.9 Chloride 95 L Carbon Dioxide 25.1 Anion Gap 6 L BUN 13 Creatinine 0.4 L Estim Creat Clear Calc 103.2 eGFR > 60 BUN/Creatinine Ratio 33 H Glucose 172 H Calculated Osmolality 257 L Calcium 8.6 Corrected Calcium 8.8 Phosphorus 3.1 Magnesium 1.8 Total Bilirubin 0.4 AST 20 ALT 16 Alkaline Phosphatase 56 Total Protein 6.0 Albumin 3.8 Globulin 2.2 L Albumin/Globulin Ratio 1.7 Urine Osmolality Quality Measures Quality Measures VTE prophylaxis Advance care planning discussed with:: patient Assessment & Plan Assessment Current Active Medications: Generic Name Dose Route Start Last Admin Trade Name Freq PRN Reason Stop Dose Admin Acetaminophen 1,000 mg 10/22/24 19:04 10/22/24 19:42 Acetaminophen 500 Mg Tablet PO 11/21/24 19:03 1,000 mg Q6HR PRN Administration PAIN Amlodipine Besylate 10 mg 10/24/24 09:00 10/25/24 09:04 Amlodipine Besylate 5 Mg Tablet PO 11/23/24 08:59 10 mg QDAY JARETT Administration Dextrose 25 ml 10/22/24 14:02 Dextrose 50%-Water Inj 50 Ml Syringe IV 11/21/24 14:01 Q15MIN PRN BG 50-70 responsive npo pt Dextrose 50 ml 10/22/24 14:02 Dextrose 50%-Water Inj 50 Ml Syringe IV 11/21/24 14:01 Q15MIN PRN BG <50 OR BG <70 & pt unresponsive Glucagon 1 mg 10/22/24 14:02 Glucagon Inj 1 Mg Vial IM Q15MIN PRN BG <70, and no IV access Heparin Sodium (Porcine) 5,000 unit 10/24/24 09:00 10/25/24 09:05 Heparin Sod Inj 5000 Unit/Ml Vial SC 11/07/24 08:59 5,000 unit Q12HR JARETT Administration Insulin Glargine 10 unit 10/25/24 09:00 10/25/24 09:05 Insulin Glargine (Lantus) 5 Unit/0.05 Ml (Per 5 Units) SC 11/24/24 08:59 10 unit QDAY JARETT Administration Insulin Human Lispro 0 unit 10/22/24 17:00 10/25/24 07:46 Insulin Lispro (Admelog) 1 Unit/0.01 Ml Unit SC 11/21/24 16:59 4 unit ACHS JARETT Administration Protocol Insulin Human Lispro 2 unit 10/25/24 12:00 Insulin Lispro (Admelog) 1 Unit/0.01 Ml Unit SC 11/24/24 11:59 TIDWM JARETT Lactulose 20 gm 10/25/24 09:54 Lactulose Syrup 20 Gm/30 Ml Udc PO 10/25/24 09:55 X1 ONE Protocol Melatonin 3 mg 10/22/24 21:00 10/24/24 20:17 Melatonin 3 Mg Tablet PO 11/21/24 20:59 3 mg HS JARETT Administration Mirtazapine 15 mg 10/24/24 17:15 10/25/24 09:05 Mirtazapine 15 Mg Tablet PO 11/23/24 17:14 15 mg QDAY JARETT Administration Ondansetron HCl 4 mg 10/22/24 14:02 Ondansetron Inj 2 Mg/Ml Inj 2 Ml IV 11/21/24 14:01 Q6H PRN NAUSEA OR VOMITING Protocol Polyethylene Glycol 17 gm 10/24/24 09:00 10/25/24 09:05 Polyethylene Glycol 17 Gm Packet PO 11/23/24 08:59 17 gm QDAY JARETT Administration Sennosides 1 tab 10/22/24 14:07 Senna/Docusate Sod 1 Tab Tablet PO 11/21/24 14:06 BID PRN Constipation Protocol Sodium Chloride 1 gm 10/24/24 09:00 10/25/24 09:05 Sodium Chloride 1 Gm Tablet PO 11/23/24 08:59 1 gm BID JARETT Administration Tamsulosin HCl 0.4 mg 10/23/24 10:30 10/25/24 09:05 Tamsulosin Hcl 0.4 Mg Capsule PO 11/22/24 10:29 0.4 mg QDAY JARETT Administration Plan Summary:A 79-year-old female patient with past medical history of hypertension, diabetes mellitus, hyperlipidemia, presented to the ED due to generalized weakness for 3 days associated with decreased oral intake and excessive urination. Patient reported that his symptoms started gradually however it kept worsening over time. Patient was admitted to the ICU for severe hyponatremia. Assessment and plan #Generalized body weakness most likely secondary to severe hyponatremia #Severe hypoosmolar hyponatremia #Mild hyperglycemia #Hypomagnesemia On presentation patient was found to have generalized weakness, No neurological symptoms no seizures No signs of fluid overload Sodium level found to be 110 no previous labs in her chart, Blood glucose 215, serum osmolality 230, magnesium level 1.1 Plan ?Switch from hypertonic saline to sodium tablets 1 g twice daily ?Patient is cleared from discharge as soon as sodium level above 128. ? Hold home medications including hydrochlorothiazide/lisinopril, hold all oral antidiabetic medications including Jardiance ? Neurochecks every shift ? Seizures precautions ? Strict in and out ? Replete other electrolytes as needed #Hyperglycemia #Hypertension #History of diabetes mellitus Plan ? Follow-up with the primary team recommendations. - Patient's plan and care discussed with my attending, Dr. Mili Frank MD Internal Medicine PGY-2 Attending Provider Attestation/Addendum Patient seen and examined with resident physician Dr. Hernandez. Note reviewed, agree with findings and recommendations.
[2024-10-25] MEDS: LACTULOSE SYRUP 20 GM/30 ML UDC PO (10:10)
--- NOTE | 2024-10-25 10:25 | PD.RESDS ---
Planned Discharge Date 10/25/24 DS: Providers Provider Date of admission: 10/22/24 13:23 Primary care physician: Heri Roberts MD Admitting Provider: Srini Wharton MD Attending Provider on Admission: Srini Wharton MD Consults: 10/22/24 13:08 Consult to Nephrology Stat Comment: Consulting Provider: Andrew Garces Attending Provider on DC: Marcel Mccall MD Discharging Provider: Edward Roberts MD Anticipated date of discharge: 10/25/24 DS: Diagnosis Problem List Completed Was Problem List Reviewed/Reconciled?: Yes Hospital Course Hospital Course Hospital course: 79-year-old female patient with past medical history of hypertension, diabetes mellitus, hyperlipidemia, presented to the ED due to generalized weakness for 3 days associated with decreased oral intake and excessive urination. Patient reported that his symptoms started gradually however it kept worsening over time. While in the ED patient was found to have a sodium of 110 for which was admitted to the ICU for severe symptomatic hyponatremia. During hospital stay patient was managed with hypertonic saline. Nephrology was consulted recommended hypertonic saline and not to overcorrect sodium more than 4 to 6 mEq per 24 hours. After sodium stabilized appropriately from severe levels, patient was started on salt tablets and fluid restriction and sodium continued to improved to acceptable levels. On further investigation likely cause of patient's hyponatremia includes medications patient at home takes lisinopril hydrochlorothiazide combination pill and Jardiance both of which will be discontinued and patient will be started on amlodipine and lisinopril only. The patient's depression patient was started on mirtazapine. Diabetes was managed with insulin sliding scale. Hypokalemia and hypomagnesemia both were repleted during hospital stay. At this time patient is medically stable for discharge. Follow up with primary care physician within 1 week of discharge. Recommended to stop hydrochlorothiazide and Jardiance as it may be the reason that she developed hyponatremia, will start patient on Amlodipine and lisinopril only. Follow up with Dr Garces in clinic. Recommended to continue with salt tablets 1 g twice daily and to follow up with nephrology within 2 weeks of discharge with renal panel. Should any symptoms recur or worsen, patient is instructed to come to the ED Problem list: #Chronic dizziness. #Depression #History of hypertension. #Severe hypoosmolar hypochloremic hyponatremia. #Hypokalemia #Hypomagnesemia. #History of type 2 diabetes mellitus. #Asymptomatic bacteriuria Case discussed with my attending Dr. Stefany Roberts MD PGY-1 Status at Discharge Functional status at discharge: independent ambulation Overall status at discharge: patient is back to baseline Time Spent with Patient Time attestation: Total time spent providing and/or coordinating discharge services: Time spent: Greater than 30 minutes Exam Vital Signs Temp Pulse Resp BP Pulse Ox O2 Del Method 97.3 F 97 19 142/85 H 96 Room Air 10/25/24 08:00 10/25/24 09:04 10/25/24 08:00 10/25/24 09:04 10/25/24 08:00 10/25/24 08:00 Narrative Exam Physical Exam GENERAL: NAD, AAOx3 HEENT: Moist mucosa. Eyes open, symmetrical, & clear CARDIO: Heart RRR, no obvious murmurs PULM: No noted coughing/dyspnea CTA B/L, no R/W/R GI: Abdomen soft, nondistended, no pain on palpation. BSx4 SKIN/MSK/EXT: No wounds/rashes/edema/amputations, no pain on palpation. Pedal pulses present B/L NEURO: AAOx3, no focal neuro deficits, able to move all 4 extremities Discharge Plan Plan Patient Disposition: HOME (Self Care) Patient condition on transfer: Stable Care Plan Goals: Follow up with primary care physician within 1 week of discharge. Recommended to stop hydrochlorothiazide and Jardiance as it may be the reason that she developed hyponatremia, will start patient on Amlodipine and lisniopril only.. Follow up with Dr Garces in clinic. Recommended to continue with salt tablets 1 g twice daily and to follow up with nephrology within 2 weeks of discharge with renal panel Should any symptoms recur or worsen, patient is instructed to come to the ED Prescriptions/Referrals Prescriptions/Med Rec: New tamsulosin 0.4 mg Capsule 0.4 mg PO QDAY 30 Days Qty: 30 0RF sodium chloride 1,000 mg Tablet,Soluble 1,000 mg PO BID 30 Days Qty: 60 0RF amlodipine 10 mg tablet 10 mg PO QDAY Qty: 30 0RF lisinopril 20 mg tablet 20 mg PO QDAY Qty: 30 0RF Continued sennosides-docusate sodium [Senna Plus] 8.6-50 mg Tablet 1 tab-cap PO BID PRN (Reason: Constipation) metformin 1,000 mg Tablet 1,000 mg PO QDAY Rx Instructions: take with meal montelukast 10 mg Tablet 10 mg PO QDAY glipizide 5 mg Tablet 5 mg PO BID meclizine 25 mg Tablet,Chewable 25 mg PO BID PRN (Reason: Dizziness) Discontinued amlodipine 5 mg Tablet 5 mg PO QDAY lisinopril-hydrochlorothiazide 20-25 mg Tablet 1 tab PO DAILY Jardiance 25 mg Tablet 25 mg PO QDAY Referrals: Heri Roberts MD [Primary Care Provider] - Andrew Garces MD [Physician] - Patient/Caregiver Discharge Instructions Education Materials: Hyponatremia Dc Print Language: [place]de[place] Stand Alone Forms: Lesly Award Info., Patient Portal Info Letter Discharge Order Discharge Orders: Discharge (Routine); Ordered 10/25/24 Ordered By: Edward Roberts Quality Discharge Quality Measures VTE prophylaxis MD Attestestation MD Attestation I reviewed labs, imaging, EKG, home medications and prior available records. Face to face evaluation was performed by me. I have personally examined the patient and discussed assessment and plan with the IM team. I reviewed the resident note and agree with the plan with exceptions as below. Severe hyponatremia Primary hypertension Dizziness Constipation Type 2 diabetes mellitus with hyperglycemia Sodium improved to 126. Discussed with nephrology: Okay to discharge. Stop hydrochlorothiazide. Continue salt tablets. Outpatient follow-up with nephrology. Repeat BMP in 1 week. Increase amlodipine dose to 10 mg daily. Continue lisinopril. Continue DM2 medications and monitor fingersticks Ordered PT evaluation. Ordered home health Docusate senna for constipation care Time spent is 40 minutes. More than 50% of the time was spent on patient education and coordination of care.
[2024-10-25] MEDS: INSULIN LISPRO (AdmeLOG) 1 UNIT/0.01 ML UNIT 2 UNIT SC ×2 (11:59→16:36)
--- NOTE | 2024-10-25 14:31 | PC.CC ---
PASSR Level 1 completed and downloaded; Level 2 not required.
--- NOTE | 2024-10-25 15:30 | PC.SS ---
SS was informed by Chris from PT who explained pt will require Home Health to return home. SS met with pt and Sherrie reddy who are agreeable and do not have preference for HH. Pt followed up with PCP, Heri Roberts from [facility] on [address] on Tuesday10-22-24 before coming to ER. SS has informed Linette TRISTAN.
[2024-10-25] MEDS: bisacodyL 10 MG SUPP PR (15:42)
--- NOTE | 2024-10-25 16:23 | PC.PT ---
PT eval only. Patient is xI with bed mobility and transfers and is able to ambulate with no DME. Patient is safe to ambulate in the [facility] and to the bathroom with 1 person standing by for safety. RN notified.
[2024-10-25] MEDS: SENNA/DOCUSATE SOD 1 TAB TABLET PO (20:03)
[2024-10-25] MEDS: MELATONIN 3 MG TABLET PO (20:03)
[2024-10-25] MEDS: ACETAMINOPHEN 500 MG TABLET 1000 MG PO (23:31)
[2024-10-26] VITALS: BP 158/75; PULSE 87; RESP 16; TEMP 36.6; O2SAT 96
[2024-10-26 04:00] VITALS: BP 138/61; PULSE 78; PULSE 81; RESP 16; TEMP 36.4; O2SAT 95
[2024-10-26 05:35] VITALS: BMI 28.7
[2024-10-26 08:00] VITALS: BP 140/60; PULSE 101; PULSE 91; RESP 15; TEMP 36.5; O2SAT 99
[2024-10-26] MEDS: INSULIN LISPRO (AdmeLOG) 1 UNIT/0.01 ML UNIT SC ×2 (08:30→11:55)
--- NOTE | 2024-10-26 08:34 | ESDS_ITS ---
Planned Discharge Date 10/26/24 DS: Providers Provider Date of admission: 10/22/24 13:23 Primary care physician: Heri Roberts MD Admitting Provider: Srini Wharton MD Attending Provider on Admission: Srini Wharton MD Consults: 10/22/24 13:08 Consult to Nephrology Stat Comment: Consulting Provider: Andrew Garces 10/25/24 13:07 Referral Physical Therapy Stat Comment: weakness, dizziness Physician Instructions: Attending Provider on DC: Marcel Mccall MD Discharging Provider: Edward Roberts MD Anticipated date of discharge: 10/26/24 DS: Diagnosis Problem List Completed Was Problem List Reviewed/Reconciled?: Yes Hospital Course Hospital Course Hospital course: 79-year-old female patient with past medical history of hypertension, diabetes mellitus, hyperlipidemia, presented to the ED due to generalized weakness for 3 days associated with decreased oral intake and excessive urination. Patient reported that his symptoms started gradually however it kept worsening over time. While in the ED patient was found to have a sodium of 110 for which was admitted to the ICU for severe symptomatic hyponatremia. During hospital stay patient was managed with hypertonic saline. Nephrology was consulted recommended hypertonic saline and not to overcorrect sodium more than 4 to 6 mEq per 24 hours. After sodium stabilized appropriately from severe levels, patient was started on salt tablets and fluid restriction and sodium continued to improved to acceptable levels. On further investigation likely cause of lino hurtado's hyponatremia includes medications patient at home takes lisinopril hydrochlorothiazide combination pill and Jardiance both of which will be discontinued and patient will be started on amlodipine and lisinopril only. The patient's depression patient was started on mirtazapine. Diabetes was managed with insulin sliding scale. Hypokalemia and hypomagnesemia both were repleted during hospital stay. At this time patient is medically stable for discharge. Follow up with primary care physician within 1 week of discharge. Recommended to stop hydrochlorothiazide and Jardiance as it may be the reason that she developed hyponatremia, will start patient on Amlodipine and lisinopril only. Follow up with Dr Garces in clinic. Recommended to continue with salt tablets 1 g twice daily and to follow up with nephrology within 2 weeks of discharge with renal panel. Should any symptoms recur or worsen, patient is instructed to come to the ED Problem list: #Chronic dizziness. #Depression #History of hypertension. #Severe hypoosmolar hypochloremic hyponatremia. #Hypokalemia #Hypomagnesemia. #History of type 2 diabetes mellitus. #Asymptomatic bacteriuria Case discussed with my attending Dr. Stefany Roberts MD PGY-1 Time Spent with Patient Time attestation: Total time spent providing and/or coordinating discharge services: Home Health Home Health Referral Orders: 10/25/24 15:29 Home Health Referral Routine Reason For Exam: home PT Home-Bound The patient must either because of illness or injury, need the aid of supportive devices such as crutches, canes, wheelchairs, and walkers; the use of special transportation; or the assistance of another person in order to leave their place of residence; OR have a condition such that leaving his or her home is medically contraindicated. In addition, the patient also meets the following criteria: patient is normally unable to leave the home and leaving home requires considerable taxing effort. Addendum to Home Health Certification Practitioner's Certification: I certify that the patient has been under my care in the hospital and the care of attending physician (see below). We had a [id number] encounter on (see date below). My clinical findings indicate that the patient is home bound per the above criteria and the Home Health Services noted in these orders are medically necessary. The primary reason for the [id number] encounter is related to the fact that the patient requires home health services. Date Certifying [id number] Physician Encounter: 10/22/24 Physician's Name who will Assume Oversight for Services: Heri Roberts Physician's Phone No.who will Assume Oversight for Service: PATIENT COORDINATOR FRONT DESK - Community Resources: Yes PT to Evaluate: Yes PT to evaluate and provide a treatmnet plan to increase patient's mobility and strength. Wound Care: No IV Therapy: No RN Safety Evaluation: Yes RN to evaluate and create a plan of care that will produce positive outcomes. Palliative Treatment: No Palliative treatment and evaluate the need for hospice. Home Health Aide - Personal Care: Yes Home Health Aide to assist with any ADL's. Exam Vital Signs Temp Pulse Resp BP Pulse Ox O2 Del Method 97.5 F 78 16 138/61 H 95 Room Air 10/26/24 04:00 10/26/24 04:00 10/26/24 04:00 10/26/24 04:00 10/26/24 04:00 10/26/24 04:00 Narrative Exam Physical Exam GENERAL: NAD, AAOx3 HEENT: Moist mucosa. Eyes open, symmetrical, & clear CARDIO: Heart RRR, no obvious murmurs PULM: No noted coughing/dyspnea CTA B/L, no R/W/R GI: Abdomen soft, nondistended, no pain on palpation. BSx4 SKIN/MSK/EXT: No wounds/rashes/edema/amputations, no pain on palpation. Pedal pulses present B/L NEURO: AAOx3, no focal neuro deficits, able to move all 4 extremities Discharge Plan Plan Patient Disposition: Home w/HOME HEALTH Patient condition on transfer: Stable Care Plan Goals: Follow up with primary care physician within 1 week of discharge. Recommended to stop hydrochlorothiazide and Jardiance as it may be the reason that she developed hyponatremia, will start patient on Amlodipine and lisniopril only.. Follow up with Dr Garces in clinic. Recommended to continue with salt tablets 1 g twice daily and to follow up with nephrology within 2 weeks of discharge with renal panel Should any symptoms recur or worsen, patient is instructed to come to the ED Prescriptions/Referrals Prescriptions/Med Rec: New tamsulosin 0.4 mg Capsule 0.4 mg PO QDAY 30 Days Qty: 30 0RF sodium chloride 1,000 mg Tablet,Soluble 1,000 mg PO BID 30 Days Qty: 60 0RF amlodipine 10 mg tablet 10 mg PO QDAY Qty: 30 0RF lisinopril 20 mg tablet 20 mg PO QDAY Qty: 30 0RF Continued sennosides-docusate sodium [Senna Plus] 8.6-50 mg Tablet 1 tab-cap PO BID PRN (Reason: Constipation) metformin 1,000 mg Tablet 1,000 mg PO QDAY Rx Instructions: take with meal montelukast 10 mg Tablet 10 mg PO QDAY glipizide 5 mg Tablet 5 mg PO BID meclizine 25 mg Tablet,Chewable 25 mg PO BID PRN (Reason: Dizziness) Discontinued amlodipine 5 mg Tablet 5 mg PO QDAY lisinopril-hydrochlorothiazide 20-25 mg Tablet 1 tab PO DAILY Jardiance 25 mg Tablet 25 mg PO QDAY Referrals: Heri Roberts MD [Primary Care Provider] - Andrew Garces MD [Physician] - Patient/Caregiver Discharge Instructions Education Materials: Hyponatremia Dc Print Language: English Stand Alone Forms: Lesly Award Info., Patient Portal Info Letter Discharge Order Discharge Orders: Discharge (Routine); Ordered 10/25/24 Ordered By: Edward Roberts Quality Discharge Quality Measures VTE prophylaxis Attestestation MD Attestation I reviewed labs, imaging, EKG, home medications and prior available records. Face to face evaluation was performed by me. I have personally examined the patient and discussed assessment and plan with the IM team. I reviewed the resident note and agree with the plan with exceptions as below. Severe hyponatremia Primary hypertension Dizziness Constipation Type 2 diabetes mellitus with hyperglycemia Sodium improved to 128. Discussed with nephrology: Okay to discharge. Stop hydrochlorothiazide. Continue salt tablets. Outpatient follow-up with nephrology. Repeat BMP in 1 week. Increased amlodipine dose to 10 mg daily. Continue lisinopril. Continue DM2 medications and monitor fingersticks Ordered PT evaluation. Ordered home health She had a bowel movement. Continue docusate senna as needed for constipation care Continue low carb consistent diet Monitor LFTs in 1 week Time spent is 40 minutes. More than 50% of the time was spent on patient education and coordination of care.
--- NOTE | 2024-10-26 08:57 | PC.SS ---
Update: Patient to d/c home today with home health services.
[2024-10-26 09:22] LABS: Basophils # (Auto) 0.1 Thou/mm3 (0.0-0.2); Basophils % (Auto) 1 % (0-2.5); Eosinophils # (Auto) 0.1 Thou/mm3 (0.0-0.5); Eosinophils % (Auto) 1 % (0-10); Hematocrit 34.5 % (36.0-46.0); Hemoglobin 11.9 g/dL (12.0-16.0); Immature Granulocytes % (Auto) 0 % (0-0); Immature Granulocytes Auto 0.03 Thou/mm3 (0.00-0.00); Lymphocytes # (Auto) 1.6 Thou/mm3 (1.0-4.8); Lymphocytes % (Auto) 19 % (10-50); Mean Corpuscular HGB Conc 34.5 g/dl (31.0-37.0); Mean Corpuscular Hemoglobin 27.8 pg (25.0-35.0); Mean Corpuscular Volume 81 fL (80-100); Monocytes # (Auto) 0.7 Thou/mm3 (0.0-0.8); Monocytes % (Auto) 8 % (0-12); Neutrophils % (Auto) 71 % (37-80); Nucleated Red Blood Cell % 0 /100 WBC (0); Platelet Count 311 Thou/mm3 (140-440); RDW Standard Deviation 39.1 fL (36.4-46.3); Red Blood Count 4.28 Miln/mm3 (4.00-5.20); White Blood Count 8.5 Thou/mm3 (3.6-11.0)
[2024-10-26] MEDS: INSULIN GLARGINE (Lantus) 5 UNIT/0.05 ML (PER 5 UNITS) 20 UNIT SC (09:26)
[2024-10-26] MEDS: HEPARIN SOD INJ 5000 UNIT/ML VIAL SC (09:27)
[2024-10-26 09:29] VITALS: BP 140/60; PULSE 91
[2024-10-26] MEDS: POLYETHYLENE GLYCOL 17 GM PACKET PO (09:29)
[2024-10-26] MEDS: MIRTAZAPINE 15 MG TABLET PO (09:29)
[2024-10-26] MEDS: amLODIPine BESYLATE 5 MG TABLET 10 MG PO (09:29)
[2024-10-26] MEDS: TAMSULOSIN HCL 0.4 MG CAPSULE PO (09:30)
[2024-10-26] MEDS: SODIUM CHLORIDE 1 GM TABLET PO (09:30)
[2024-10-26 09:41] LABS: Alanine Aminotransferase 50 U/L (10-49); Albumin/Globulin Ratio 1.7 (1.2-2.2); Alkaline Phosphatase 62 U/L (46-116); Anion Gap 6 (7-16); Aspartate Amino Transferase 58 U/L (0-34); BUN/Creatinine Ratio 30 Ratio (12-20); Bilirubin,Total 0.4 mg/dL (0.3-1.2); Blood Urea Nitrogen 18 mg/dL (9-23); Calcium 9.2 mg/dL (8.3-10.6); Calcium (Corrected) 9.2 mg/dL (8.5-10.1); Chloride 98 mMol/L (98-107); Creatinine (Component) 0.6 mg/dL (0.6-1.3); Estimated Creatinine Clearance 69.7 mL/min (>60); Globulin 2.4 gm/dL (2.3-3.5); Glucose 291 mg/dL (74-106); Magnesium 1.7 mg/dL (1.6-2.6); Osmolality,Calculated 269 (275-295); Potassium 4.8 mMol/L (3.4-5.1); Sodium 128 mMol/L (136-145); Total Protein 6.4 gm/dL (5.7-8.2); eGFR > 60 See Note
--- NOTE | 2024-10-26 10:29 | PC.NURSE ---
Sherrie, Dtr of pt, is the pt's only way home and she is at work until 1430/1500
[2024-10-26] MEDS: INSULIN LISPRO (AdmeLOG) 1 UNIT/0.01 ML UNIT 4 UNIT SC (11:54)
[2024-10-26 12:00] VITALS: BP 128/61; PULSE 87; RESP 19; TEMP 36.4; O2SAT 99
--- NOTE | 2024-10-26 12:48 | PC.CM ---
Addendum entered by Camron Jasso RN 10/26/24 13:50: Patient accepted by [facility], pending start of care date. Original Note: Home health referral initiated through [facility], awaiting responses at this time.
--- NOTE | 2024-10-26 14:07 | PD.RESPRO ---
Documentation for date of: 10/26/24 Subjective Subjective Interval history: Ms. Royal is a 79-year-old female patient with past medical history of hypertension, diabetes mellitus, hyperlipidemia, presented to the ED due to generalized weakness for 3 days associated with decreased oral intake and excessive urination. Patient reported that his symptoms started gradually however it kept worsening over time. Today she went to her PCP however as per the daughter he did not do any blood work for the patient for that reason they decided to come to the ED. The daughter denied any episodes of seizure or loss of consciousness denied any fall down however she reported that for the past few days she started to feel dizzy. Denied any vomiting or diarrhea, denied any new medications added to her regimen. Home medications: Metformin, glipizide, lisinopril/hydrochlorothiazide, Jardiance, meclizine, montelukast, senna, amlodipine ED course: At the ED patient blood pressure was elevated 184/78, she was given 1 dose of hydralazine 20 mg IV. Heart rate in the high normal range between 90s and 110s, normal sinus. WBC was elevated 15, hemoglobin stable at 13 and sodium was found to be 110 repeat labs to rule out any artifact also came back 110. Patient was started at the ED with 30 mL/h 3 percent NS. 10/23/2024 patient currently seen in ICU. Patient was seen and examined at bedside, denied any new symptoms, no shivering or chills no episodes of seizures or abnormal movements. Sodium level for the past 24 hours was corrected by 5 mEq up to 115, goal for tomorrow is to be corrected up to 122. Sodium checks can be changed from every hours to every 2 hours at this time. 10/24/2024 patient was seen and examined at bedside. Patient denied any new symptoms. Her sodium continue to improve and at this time her sodium level is 121. Will hold on the hypertonic saline at this time and will start the patient on sodium tablets 1 g twice daily. We can change the sodium checks and instead of every 2 hours to every 4 hours at this time. 10/25/2024 patient was seen and examined at bedside. Denied any new symptoms. Was lying in bed comfortably. Vitally patient is stable. Her sodium persistently at 126 for the past 12 hours on salt tablets 1 g twice daily. As soon as the patient sodium goes above 128 she is cleared to be discharged from our standpoint, patient will need to hold hydrochlorothiazide and Jardiance as it may be the reason that she developed hyponatremia and the primary team has to find a substitute for the patient. 10/26/2024, patient was seen and examined at bedside. Denied any symptoms lying in bed comfortably. Vital stable. Her sodium is still at 126. Currently she is on salt tablets 1 g twice daily. Patient was cleared for discharge by the primary team we agreed on the plan. Patient has to follow-up in an outpatient settings with a food and beverage analyst. The primary team has stopped Jardiance and hydrochlorothiazide on discharge. Patient is cleared for discharge from our standpoint. Exam Vital Signs Temp Pulse Resp BP Pulse Ox O2 Del Method 97.5 F 87 19 128/61 99 Room Air 10/26/24 12:00 10/26/24 12:00 10/26/24 12:00 10/26/24 12:00 10/26/24 12:00 10/26/24 12:00 Narrative Exam GEN: AOx3, able to speak full sentences HEENT: NC/AC, PERRLA, oral mucosa moist, neck supple CVS: RRR, S1-S2 present, no murmurs appreciated RESP: CTAB GI: soft,non distended, non tender, NBS MSK: able to move all 4 limbs, no lower extremity edema SKIN: warm and dry CONSULTATIVE SALES ASSOCIATE: CN II-XII and Sensation grossly intact. Objective Labs 10/26/24 08:45 10/26/24 08:45 Labs: Laboratory Results - last 24 hr 10/26/24 08:45 WBC 8.5 RBC 4.28 Hgb 11.9 L Hct 34.5 L MCV 81 MCH 27.8 MCHC 34.5 RDW Std Deviation 39.1 Plt Count 311 D Neut % (Auto) 71 Lymph % (Auto) 19 Grant % (Auto) 8 Eos % (Auto) 1 Baso % (Auto) 1 Neut # (Auto) 6.0 Lymph # (Auto) 1.6 Grant # (Auto) 0.7 Eos # (Auto) 0.1 Baso # (Auto) 0.1 Immature Gran # (Auto) 0.03 H Absolute Nucleated RBC 0.00 Immature Gran % 0 Nucleated RBC % 0 Sodium 128 L Potassium 4.8 D Chloride 98 Carbon Dioxide 24.0 Anion Gap 6 L BUN 18 Creatinine 0.6 Estim Creat Clear Calc 69.7 eGFR > 60 BUN/Creatinine Ratio 30 H Glucose 291 H D Calculated Osmolality 269 L Calcium 9.2 Corrected Calcium 9.2 Magnesium 1.7 Total Bilirubin 0.4 AST 58 H ALT 50 H Alkaline Phosphatase 62 Total Protein 6.4 Albumin 4.0 Globulin 2.4 Albumin/Globulin Ratio 1.7 Quality Measures Quality Measures VTE prophylaxis Advance care planning discussed with:: patient Assessment & Plan Assessment Current Active Medications: Generic Name Dose Route Start Last Admin Trade Name Barbara PRN Reason Stop Dose Admin Acetaminophen 1,000 mg 10/22/24 19:04 10/25/24 23:31 Acetaminophen 500 Mg Tablet PO 11/21/24 19:03 1,000 mg Q6HR PRN Administration PAIN Amlodipine Besylate 10 mg 10/24/24 09:00 10/26/24 09:29 Amlodipine Besylate 5 Mg Tablet PO 11/23/24 08:59 10 mg QDAY JARETT Administration Dextrose 25 ml 10/22/24 14:02 Dextrose 50%-Water Inj 50 Ml Syringe IV 11/21/24 14:01 Q15MIN PRN BG 50-70 responsive npo pt Dextrose 50 ml 10/22/24 14:02 Dextrose 50%-Water Inj 50 Ml Syringe IV 11/21/24 14:01 Q15MIN PRN BG <50 OR BG <70 & pt unresponsive Glucagon 1 mg 10/22/24 14:02 Glucagon Inj 1 Mg Vial IM Q15MIN PRN BG <70, and no IV access Heparin Sodium (Porcine) 5,000 unit 10/24/24 09:00 10/26/24 09:27 Heparin Sod Inj 5000 Unit/Ml Vial SC 11/07/24 08:59 5,000 unit Q12HR JARETT Administration Insulin Glargine 20 unit 10/26/24 09:00 10/26/24 09:26 Insulin Glargine (Lantus) 5 Unit/0.05 Ml (Per 5 Units) SC 11/25/24 08:59 20 unit QDAY JARETT Administration Insulin Human Lispro 0 unit 10/22/24 17:00 10/26/24 11:55 Insulin Lispro (Admelog) 1 Unit/0.01 Ml Unit SC 11/21/24 16:59 6 unit ACHS [facility] Administration Protocol Insulin Human Lispro 4 unit 10/26/24 12:00 10/26/24 11:54 Insulin Lispro (Admelog) 1 Unit/0.01 Ml Unit SC 11/25/24 11:59 4 unit TIDWM JARETT Administration Melatonin 3 mg 10/22/24 21:00 10/25/24 20:03 Melatonin 3 Mg Tablet PO 11/21/24 20:59 3 mg HS JARETT Administration Mirtazapine 15 mg 10/24/24 17:15 10/26/24 09:29 Mirtazapine 15 Mg Tablet PO 11/23/24 17:14 15 mg QDAY JARETT Administration Ondansetron HCl 4 mg 10/22/24 14:02 Ondansetron Inj 2 Mg/Ml Inj 2 Ml IV 11/21/24 14:01 Q6H PRN NAUSEA OR VOMITING Protocol Polyethylene Glycol 17 gm 10/24/24 09:00 10/26/24 09:29 Polyethylene Glycol 17 Gm Packet PO 11/23/24 08:59 17 gm QDAY JARETT Administration Sennosides 1 tab 10/22/24 14:07 10/25/24 20:03 Senna/Docusate Sod 1 Tab Tablet PO 11/21/24 14:06 1 tab BID PRN Administration Constipation Protocol Sodium Chloride 1 gm 10/24/24 09:00 10/26/24 09:30 Sodium Chloride 1 Gm Tablet PO 11/23/24 08:59 1 gm BID JARETT Administration Tamsulosin HCl 0.4 mg 10/23/24 10:30 10/26/24 09:30 Tamsulosin Hcl 0.4 Mg Capsule PO 11/22/24 10:29 0.4 mg QDAY JARETT Administration Plan Summary:A 79-year-old female patient with past medical history of hypertension, diabetes mellitus, hyperlipidemia, presented to the ED due to generalized weakness for 3 days associated with decreased oral intake and excessive urination. Patient reported that his symptoms started gradually however it kept worsening over time. Patient was admitted to the ICU for severe hyponatremia. Assessment and plan #Generalized body weakness resolved #Severe hypoosmolar hyponatremia improving #Mild hyperglycemia #Hypomagnesemia On presentation patient was found to have generalized weakness, No neurological symptoms no seizures No signs of fluid overload Sodium level found to be 110 no previous labs in her chart, Blood glucose 215, serum osmolality 230, magnesium level 1.1 Plan ?Patient is cleared for discharge from nephrology standpoint to follow-up in outpatient settings ?Continue salt tablets twice daily on discharge. ? Stop home medications including hydrochlorothiazide/lisinopril, Jardiance on discharge ? Neurochecks every shift ? Seizures precautions ? Strict in and out ? Replete other electrolytes as needed #Hyperglycemia #Hypertension #History of diabetes mellitus Plan ? Follow-up with the primary team recommendations. - Patient's plan and care discussed with my attending, Dr. Mili Frank MD Internal Medicine PGY-2 Attending Provider Attestation/Addendum Patient seen and examined with resident physician Dr. Hernandez. Note reviewed, agree with findings and recommendations. Patient presented with severe symptomatic hyponatremia. Hypertonic saline at 40 mL/h started. Will monitor serum sodium every 2 hours with no more than 6 mEq rise in the next 24 hours. Plan of care discussed with ICU team. 10/26 Sodium improved to 126. Add salt tablets. Patient clinically stable. Renal quezada stable for discharge on salt tablets.
--- NOTE | 2024-10-30 15:13 | PC.CM ---
Still pending start of care date from Hong LEYVA
--- NOTE | 2024-10-31 17:30 | PC.CM ---
Michelle SUAREZ sent message via [employer] [employer] to CHUY for start of care date.
--- NOTE | 2024-11-01 12:29 | PC.CM ---
[facility] accepted patient and start of care date is set for 10/30.
== END 2024-10-26 15:14 | disposition home health service (06) | DRG 641 ==
LOC: SERX 13:12 → SERHOLD 13:35 → S2SX 15:56 → S2NX 10-24 12:20
PROVIDERS: Nurse Practitioner Family; Registered Nurse General Practice; Student in an Organized Health Care Education/Training Program; Admitting Provider Internal Medicine Critical Care Medicine; Emergency Provider Emergency Medicine; PCP Family Medicine; Visit Provider Internal Medicine Critical Care Medicine
DX: E87.1 Hypo-osmolality and hyponatremia (principal); E78.5 Hyperlipidemia, unspecified; I10 Essential (primary) hypertension; E83.42 Hypomagnesemia; R42 Dizziness and giddiness; E11.65 Type 2 diabetes mellitus with hyperglycemia; I16.0 Hypertensive urgency; I45.10 Unspecified right bundle-branch block; F32.A Depression, unspecified; G47.00 Insomnia, unspecified; E87.6 Hypokalemia; R82.71 Bacteriuria
CPT/HCPCS: 36415; 70551; 71045; 80053; 80061; 81001; 82436; 82570; 83036; 83735; 83880; 83935; 84100; 84133; 84295; 84300; 84439; 84443; 84484; 84550; 85025; 85610; 85730; 87081; 87086; 93005; 96372; 97162; 99285; J0360; J1643; J1815; J3475; J7131; A9270

== ENCOUNTER 2025-04-08 13:36 | Inpatient (IN) | payer MEDICARE, MEDICAID, SELFPAY ==
[2025-04-08] VITALS (36 sets, daily range): BP systolic 155–182; BP diastolic 72–87; PULSE 73–91; RESP 13–132; TEMP 36.5–37.3; O2SAT 95–98; BMI 32.3
--- NOTE | 2025-04-08 14:01 | XR_ITS ---
Examination: PA chest single view TECHNIQUE: Upright PA chest single view Date and time: April 08, 2025 at 1412 hours INDICATIONS: Shortness of breath dyspnea today. FINDINGS: Mild heart failure Mild enlargement cardiac contour Prominent vascular congestion including central vascular engorgement Large right pleural effusion IMPRESSION: Mild heart failure Large right pleural effusion
--- NOTE | 2025-04-08 14:01 | EKG_ITS ---
[facility] Test Date: 2025-04-08 Pat Name: FIDENCIO CORDOVA Department: Room: - Gender: Female Health Safety Coordinator: : 1945 Requested By: Zhao Wick Order Number: [id number] Reading MD: Zhao Wick Measurements Intervals [place] Rate: 84 P: 37 SD: 140 QRS: -21 QRSD: 124 T: -11 QT: 359 QTc: 427 Interpretive Statements SINUS RHYTHM WITH OCCASIONAL VENTRICULAR PREMATURE COMPLEXES INDETERMINATE AXIS RIGHT BUNDLE BRANCH BLOCK [120+ ms QRS DURATION, UPRIGHT V1, 40+ ms S IN I/aVL/V4/V5/V6] Compared to ECG 10/22/2024 17:12:53 Ventricular premature complex(es) now present Sinus tachycardia no longer present /store/S0/[id number].pdf
--- NOTE | 2025-04-08 14:01 | PD.EDWEAK ---
ED Weakness RME/HPI General Chief complaint: Shortness of Breath/Dyspnea Stated complaint: TIRED, DIZZY, WEAK, SOB, ASTHMA X 8 DAYS Time Seen by Provider: 04/08/25 13:59 Source: patient and family Arrival date/time: 04/08/25 13:36 Mode of arrival: ambulatory Limitations: no limitations RME / HPI RME / HPI Narrative: Patient is a 80-year-old female who is brought in today by her stepdaughter with a 1 week history of generalized malaise, dizziness, and mild dyspnea. She was seen in clinic a week ago and was treated for asthma without improvement. She denies any chest pain or abdominal pain. She has a history of hypertension, diabetes, and hyperlipidemia. She has no nausea, vomiting, or changes in urination. No syncopal episodes. No lower leg edema. No fevers or chills. Related Data Home Medications ?Medication ?Instructions ?Recorded ?Confirmed glipizide 5 mg tablet 5 mg PO BID 10/22/24 10/22/24 meclizine 25 mg chewable tablet 25 mg PO BID PRN Dizziness 10/22/24 10/22/24 metformin 1,000 mg tablet 1,000 mg PO QDAY 10/22/24 10/22/24 montelukast 10 mg tablet 10 mg PO QDAY 10/22/24 10/22/24 sennosides 8.6 mg-docusate sodium 1 tab-cap PO BID PRN Constipation 10/22/24 10/22/24 50 mg tablet (Senna Plus) Previous Rx's ?Medication ?Instructions ?Recorded amlodipine 10 mg tablet 10 mg PO QDAY #30 tabs 10/25/24 lisinopril 20 mg tablet 20 mg PO QDAY #30 tabs 10/25/24 Allergies Allergy/AdvReac Type Severity Reaction Status Date / Time No Known Allergies Allergy Verified 04/08/25 13:39 Review of Systems Review of Systems Systems Reviewed: All systems reviewed, normal except as documented ED Exam General Limitations: Present no limitations General appearance: Present alert and in no apparent distress Head Head exam: Present atraumatic Eye Eye exam: Present normal appearance, PERRL and EOMI ENT ENT exam: Present normal exam, normal oropharynx and mucous membranes moist Neck Neck exam: Present normal inspection, full ROM and trachea midline Chest Chest inspection: Present normal inspection and symmetric chest wall rise Respiratory Respiratory exam: Present normal lung sounds bilaterally Cardiovascular Cardiovascular exam: Present regular rate, normal rhythm and normal heart sounds Abdominal Exam Abdominal exam: Present soft, distention and normal bowel sounds; Absent tenderness, guarding, rebound or rigidity Extremities Exam Extremities exam: Present normal inspection and full ROM Back Exam Back exam: Present normal inspection and full ROM Neurological Exam Neurological exam: Present alert, oriented X3 and CN II-XII intact Psychiatric Psychiatric exam: Present normal affect and normal mood Skin Skin exam: Present warm, dry, intact and normal color Course Quality Measures none Orders Category Date Time Status COVID-19 Screening Questionnaire NOW Care 04/08/25 18:05 Active Decision to Admit X1 Care 04/08/25 18:05 Completed EKG (ED ONLY) *Do not use* NOW Care 04/08/25 14:01 Completed EKG (ED ONLY) *Do not use* NOW Care 04/08/25 16:49 Completed EKG (ED Only) Stat Exams 04/08/25 14:01 Draft EKG (ED Only) Stat Exams 04/08/25 16:49 Draft XR chest 1V Stat Exams 04/08/25 14:01 Completed CBC Stat Lab 04/08/25 14:19 Completed CMP [Comprehensive Metabolic Panel] Stat Lab 04/08/25 14:19 Completed Troponin I Stat Lab 04/08/25 14:19 Completed UA [Urinalysis] Stat Lab 04/08/25 14:30 Completed Sodium Chloride 0.9% 1000 ml [Ns] 1,000 ml Med 04/08/25 18:04 Discontinued IV 999 mls/hr Vital Signs Vital signs: Vital Signs Temperature 98.1 F 04/08/25 14:02 Pulse Rate 91 04/08/25 14:02 Respiratory Rate 16 04/08/25 14:02 Blood Pressure 181/75 H 04/08/25 14:02 Pulse Oximetry (%) 97 04/08/25 14:02 Oxygen Delivery Method Room Air 04/08/25 14:02 Weakness MDM Narrative MDM Narrative:: Patient is a 80-year-old female who is brought in today by her stepdaughter with a 1 week history of generalized malaise, dizziness, and mild dyspnea. She was seen in clinic a week ago and was treated for asthma without improvement. She denies any chest pain or abdominal pain. She has a history of hypertension, diabetes, and hyperlipidemia. She has no nausea, vomiting, or changes in urination. No syncopal episodes. No lower leg edema. No fevers or chills. On exam patient is nontoxic-appearing in no visible signs distress. She has a distended belly that is nontender. She has no lower leg edema. Workup is significant for new pleural effusion and hyponatremia at 120. Hospitalist was paged, we will admit. Hospitalist stated they will likely pass this to the night shift supervisor team. Patient data External records reviewed:: [facility] previous records Clinical information provided by:: patient and family Social determinants that could affect healthcare access:: none Patient has the following chronic illnesses:: Hypertension, diabetes, hyperlipidemia How is presenting disease/condition affected by chronic disease/condition?: uneffected by Evaluation data The following diagnostics were reviewed and interpreted by me:: lab results (Patient has a mild leukocytosis of 12.4 thousand, mild anemia with a hemoglobin 11.8 and hematocrit at 33.7. Chemistries show a sodium of 120 and a chloride of 184. BUN creatinine ratio is 28 and her glucose is 217. Alk phos is elevated to 52. Urinalysis reveals 18 erythrocytes with no leukocyte) and radiology exam(s) (Acute left-sided pleural effusion) Lab and/or radiology exams considered but not ordered:: n/a Interpretation Summary: Workup significant for hyponatremia 120 and new left-sided pleural effusion Medications / Prescriptions Medications or Prescriptions considered but not ordered:: n/a Medication administrations:: Medication Administration History Discontinued Medications Sodium Chloride (Ns) 1,000 mls @ 999 mls/hr IV .Q1H1M ONE Stop: 04/08/25 19:04 Last Admin: 04/08/25 18:20 Dose: 999 mls/hr Documented By: CORIE n/a Consultations Consultation(s) initiated? (list below): No Diagnosis Weakness Differential Diagnosis: other Most likely diagnosis given after review of the tests above:: Hyponatremia, pleural effusion Admission Indicated Admission indicated?: indicated Admission Request Was there a request for admission?: Yes Admission Attestation Admission request attestation: Discussed case with [] from Hospitalist service regarding admission. Discussed patients ED course, exam findings, labs, and radiology results. The Hospitalist [agrees,declines] to accept the patient for admission. Disposition Plan Disposition Plan: Admit Discharge Plan Plan Patient Disposition: Admit Acute Care w/in Hospital Patient condition on transfer: Stable Prescriptions/Referrals Prescriptions/Med Rec: No Action sennosides-docusate sodium [Senna Plus] 8.6-50 mg Tablet 1 tab-cap PO BID PRN (Reason: Constipation) metformin 1,000 mg Tablet 1,000 mg PO QDAY Rx Instructions: take with meal montelukast 10 mg Tablet 10 mg PO QDAY glipizide 5 mg Tablet 5 mg PO BID meclizine 25 mg Tablet,Chewable 25 mg PO BID PRN (Reason: Dizziness) amlodipine 10 mg tablet 10 mg PO QDAY Qty: 30 0RF lisinopril 20 mg tablet 20 mg PO QDAY Qty: 30 0RF Referrals: No Primary/Family,Physician [Primary Care Provider] - In 1 week Problem List Clinical Impression: Acute hyponatremia, Pleural effusion Patient/Caregiver Discharge Instructions Print Language: Kiswahili Stand Alone Forms: Lesly Award Info., Patient Portal Info Letter
[2025-04-08 14:41] LABS: Basophils # (Auto) 0.1 Thou/mm3 (0.0-0.2); Basophils % (Auto) 0 % (0-2.5); Eosinophils % (Auto) 0 % (0-10); Hematocrit 33.7 % (36.0-46.0); Hemoglobin 11.8 g/dL (12.0-16.0); Immature Granulocytes % (Auto) 1 % (0-0); Immature Granulocytes Auto 0.08 Thou/mm3 (0.00-0.00); Lymphocytes # (Auto) 1.2 Thou/mm3 (1.0-4.8); Lymphocytes % (Auto) 9 % (10-50); Mean Corpuscular Hemoglobin 27.8 pg (25.0-35.0); Mean Corpuscular Volume 79 fL (80-100); Monocytes # (Auto) 0.8 Thou/mm3 (0.0-0.8); Monocytes % (Auto) 7 % (0-12); Neutrophils # (Auto) 10.2 Thou/mm3 (1.8-7.7); Neutrophils % (Auto) 83 % (37-80); Nucleated Red Blood Cell % 0 /100 WBC (0); Platelet Count 394 Thou/mm3 (140-440); Red Blood Count 4.25 Miln/mm3 (4.00-5.20); White Blood Count 12.4 Thou/mm3 (3.6-11.0)
[2025-04-08 14:57] LABS: Collection Type, Urine Voided
[2025-04-08 15:05] LABS: Alanine Aminotransferase 11 U/L (10-49); Albumin, Serum 4.1 gm/dL (3.4-4.8); Albumin/Globulin Ratio 1.6 (1.2-2.2); Alkaline Phosphatase 252 U/L (46-116); Aspartate Amino Transferase 25 U/L (0-34); BUN/Creatinine Ratio 28 Ratio (12-20); Bilirubin,Total 0.5 mg/dL (0.3-1.2); Blood Urea Nitrogen 17 mg/dL (9-23); Calcium 9.2 mg/dL (8.3-10.6); Calcium (Corrected) 9.2 mg/dL (8.5-10.1); Carbon Dioxide 23.5 mMol/L (20.0-31.0); Chloride 84 mMol/L (98-107); Creatinine (Component) 0.6 mg/dL (0.6-1.3); Globulin 2.5 gm/dL (2.3-3.5); Glucose 217 mg/dL (74-106); Total Protein 6.6 gm/dL (5.7-8.2); Troponin I < 0.020 ng/mL (0.0-0.045); eGFR > 60 See Note
[2025-04-08 15:06] LABS: Anion Gap 13 (7-16); Osmolality,Calculated 250 (275-295); Sodium 120 mMol/L (136-145)
[2025-04-08 15:12] LABS: Bilirubin,Urine Negative (Negative); Blood,Urine 1+ (Negative); Clarity,Urine Clear (Clear/Hazy); Color,Urine Lt-Yellow (Lt Yel-Yel); Glucose, Urine 2+ (Negative); Ketones,Urine Negative (Negative); Leukocyte Esterase,Urine Positive (Negative); Nitrite,Urine Negative (Negative); PH,Urine 6.5 (5.0-7.0); Protein,Urine 1+ (Neg - Trace); RBC,Urine 18 /hpf (0-3); Specific Gravity,Urine 1.014 (1.001-1.035); Squamous Epithelial Cell,Urine < 1 /hpf (0-5); Urobilinogen,Urine Negative mg/dL (0.0-1.0); WBC,Urine 5 /hpf (0-5)
--- NOTE | 2025-04-08 16:49 | EKG_ITS ---
[facility] Test Date: 2025-04-08 Pat Name: FIDENCIO CORDOVA Department: Room: - Gender: Female Marketing Secretary: : 1945 Requested By: Zhao Wick Order Number: [id number] Reading MD: Zhao Wick Measurements Intervals [place] Rate: 78 P: 19 WI: 135 QRS: -17 QRSD: 137 T: 5 QT: 400 QTc: 457 Interpretive Statements SINUS RHYTHM INDETERMINATE AXIS RIGHT BUNDLE BRANCH BLOCK [120+ ms QRS DURATION, UPRIGHT V1, 40+ ms S IN I/aVL/V4/V5/V6] Compared to ECG 04/08/2025 14:06:34 Ventricular premature complex(es) no longer present /store/S0/[id number].pdf
--- NOTE | 2025-04-08 17:42 | PC.NURSE ---
PT IN TODAY FOR FATIGUE FOR THE LAST WEEK. PT DID SEE PMD LAST FOR BRONCHITIS AND WAS PLACED ON MEDICATION AND FELT BETTER BUT THEN STARTED FEELING WEAK. PT DOES STATE TO HAVE BEEN ADMITTED FOR LOW NA LEVELS AND THAT SHE FEELS THE SAME WAY SHE DID THEN. PT'S DAUGHTER AT BEDSIDE.
--- NOTE | 2025-04-08 18:06 | EVENTNT_ITS ---
Documentation for date of: 04/08/25 Event Note Event Note: Team B received call for admission at 6:03 pm from JHOANA Churchill for patient in ED 11, Ms. De Guzman 80-year-old female who came with 8 days of progressive fatigue, dizziness, weakness, and shortness of breath. Patient saw PCP 1 week ago and received medications for asthma/bronchitis and at first improved but then felt worse again. Patient has history of admission for severe hyponatremia this past October. Patient labs today show hyponatremia of 120. CXR also showed a new large right pleural effusion. Patient will be handed off to the night floor team to complete admission for hyponatremia and pleural effusion manag ement. Patient plan of care was discussed with the attending physician, Dr. Martell. Tiffany Herbert, PGY-2
[2025-04-08] MEDS: SODIUM CHLORIDE 0.9% 1000 ML 1,000 ML 999 ML IV (18:20)
--- NOTE | 2025-04-08 19:59 | ESHP_ITS ---
<Statement entered by Vanessa Caban MD - 04/09/25 06:39> I Vanessa Caban MD reviewed the note and agree with the resident's assessment & plan with exceptions as below. I have personally reviewed labs, imaging, home meds/prior records, examined the patient, formulated and discussed management plan with the IM team. A 80-year-old female with history of DM, HTN, hyponatremia (6 months ago) presented to ED with generalized fatigue, significant abdominal distention noted to have severe hyponatremia on initial evaluation. CXR did reveal bilateral pleural effusion with concern for mild pulmonary vascular congestion. Will treat with hypertonic saline with target sodium correction 8-10 mEq in first 24 hours. There is abdominal distention which is relatively subacute in onset and UA is positive for leukocyte Estrace, we will empirically treat with Rocephin and metronidazole for potential intra-abdominal infection. Additionally would get CT abdomen/pelvis without contrast to rule out metastatic etiology for relatively new onset hyponatremia. Obtain echocardiogram for further evaluation of pulmonary vascular congestion however Likely etiology is hyponatremia. Documentation for date of: 04/08/25 HPI History of Present Illness Chief complaint: generalized weakness History of present illness: 80-year-old female with past medical history of hypertension, hyperlipidemia, diabetes mellitus, asthma who presented to the ED due to generalized weakness. Patient states onset of symptoms began around 3 days ago where she felt dizzy and had a fall. Of note patient does take meclizine at home for her dizziness however she has been taking her medications but still felt dizzy. She also endorses states she has not been able to eat or drink much for the past 2 months. She also states that around 1 week ago patient had shortness of breath was diagnosed with bronchitis and given breathing treatments and sent home. She also states that she has noted her abdomen has been increasing in size for the past 2 days as well as some palpitations. At this time patient denies headache, blurry vision, nausea, vomiting, sick contacts, recent travel. ED course: ED vitals: BP 181/75, HR 91, saturating 97% on room air ED labs: Leukocytosis, microcytic anemia, sodium 128, chloride 84, glucose 217, alk phos 252, UA shows positive leukocyte esterase, +1 blood, +2 glucose, +1 protein. Chest x-ray shows mild heart failure, right-sided Large pleural effusion. EKG shows normal sinus rhythm PMHx: As above SX Hx: None Social Hx: Denies cigarette use, denies alcohol use, denies illicit substances including THC FH X: Unknown Review of Systems Review of Systems Systems Reviewed: All systems reviewed, normal except as documented Narrative Review of Systems: All 12 systems reviewed and found negative unless otherwise stated in the HPI. Exam Vital Signs Temp Pulse Resp BP Pulse Ox O2 Del Method 99.1 F 75 14 165/72 H 96 Room Air 04/08/25 18:09 04/08/25 18:21 04/08/25 18:09 04/08/25 18:09 04/08/25 18:09 04/08/25 18:09 Narrative Exam Physical Exam GENERAL: NAD, AAOx3 HEENT: Dry mucosa. Eyes open, symmetrical, & clear CARDIO: Heart RRR, no obvious murmurs PULM: No noted coughing/dyspnea decreased breath sounds on the right side GI: Abdomen soft, distended, no pain on palpation. BSx4 SKIN/MSK/EXT: No wounds/rashes/edema/amputations, no pain on palpation. Pedal pulses present B/L NEURO: AAOx3, no focal neuro deficits, able to move all 4 extremities Results: Labs 04/08/25 14:19 04/08/25 14:19 Labs: Short CBC 04/08/25 Range/Units 14:19 WBC 12.4 H (3.6-11.0) Thou/mm3 Hgb 11.8 L (12.0-16.0) g/dL Hct 33.7 L (36.0-46.0) % Plt Count 394 (140-440) Thou/mm3 BMP 04/08/25 14:19 Sodium 120 L Potassium 5.0 Chloride 84 L Carbon Dioxide 23.5 BUN 17 Creatinine 0.6 Glucose 217 H Calcium 9.2 Cardiac Enzymes 04/08/25 Range/Units 14:19 Troponin I < 0.020 (0.0-0.045) ng/mL Liver Function 04/08/25 Range/Units 14:19 Total Bilirubin 0.5 (0.3-1.2) mg/dL AST 25 (0-34) U/L ALT 11 (10-49) U/L Alkaline Phosphatase 252 H (46-116) U/L Albumin 4.1 (3.4-4.8) gm/dL Urine 04/08/25 Range/Units 14:30 Urine Color Lt-Yellow (Lt Yel-Yel) Urine Clarity Clear (Clear/Hazy) Urine pH 6.5 (5.0-7.0) Ur Specific [place] 1.014 (1.001-1.035) Urine Protein 1+ A (Neg - Trace) Urine Glucose (UA) 2+ A (Negative) Quality Measures Quality Measures none Advance care planning discussed with:: patient Medications Home Medications and Allergies Home Medications ?Medication ?Instructions ?Recorded ?Confirmed ?Type glipizide 5 mg tablet 5 mg PO BID 10/22/24 5 History meclizine 25 mg chewable tablet 25 mg PO BID PRN Dizzi ness 10/22/24 10/22/24 History metformin 1,000 mg tablet 1,000 mg PO QDAY 10/22/24 History montelukast 10 mg tablet 10 mg PO QDAY 10/22/2410/22 History sennosides 8.6 mg-docusate sodium 1 tab-cap PO BID PRN Constipation 10/22/24 10/22/24 History 50 mg tablet (Senna Plus) Allergies Allergy/AdvReac Type Severity Reaction Status Date / Time No Known Allergies Allergy Verified 04/08/25 13:39 Visit Medications Acetaminophen (Acetaminophen 325 Mg Tablet) 650 mg PO Q6H PRN PRN Reason: Fever >100.4 Stop: 05/08/25 19:53 Acetaminophen (Acetaminophen 325 Mg Tablet) 1,000 mg PO Q6H PRN PRN Reason: PAIN SCALE 1-3 (mild Stop: 05/08/25 19:53 Sodium Chloride 500 ml/ IV (Miscellaneous Supplies) 500 mls @ 30 mls/hr IV X1 ONE Stop: 04/09/25 12:33 Ondansetron HCl (Ondansetron Inj 2 Mg/Ml Inj 2 Ml) 4 mg IVP Q6H PRN; Protocol PRN Reason: NAUSEA OR VOMITING Stop: 05/08/25 19:53 Discontinued Medications Sodium Chloride (Ns) 1,000 mls @ 999 mls/hr IV .Q1H1M ONE Stop: 04/08/25 19:04 Last Infusion: 04/08/25 19:56 Dose: Infused Assessment & Plan Plan 80-year-old female with past medical history of diabetes, hypertension, hyperlipidemia, asthma who presented to the ED due to generalized weakness. Admitted for management of hyponatremia. #Hyponatremia Likely hypotonic in the setting of decreased p.o. intake vs diuretic use Patient presented with 3 days of generalized weakness having dizziness and decreased p.o. intake for more than 2 months, patient also takes lisinopril-HCTZ Patient has had previous admissions for severe hyponatremia Current sodium 120 ? sodium checks every 3 hours, goal 124-126 ? Hypertonic saline 500 mL x 1 ? Consider nephrology consult ? Strict ins and outs ? Follow-up urine electrolytes, osmolality #Right-sided pleural effusion #Abdominal distention Likely secondary to fluid shifts from hyponatremia ? Follow-up CT abdomen pelvis without contrast ? Echo ordered ? Consider diuretics or ultrasound-guided thoracentesis #Hypertension #Diabetes mellitus #Hyperlipidemia #History of asthma Last A1c: 6.4, October 2024 ? SSI ? Hypoglycemia protocol in place ? DuoNebs as needed ? Pending med rec to resume antihypertensives and home meds Health Maintenance: Disposition: Telemetry, on hypertonic saline Fluids: Hypertonic saline Feeding: Regular Thrombo prophylaxis: SCDs Gastric Ulcer prophylaxis: None CODE STATUS: Full code Case discussed with my attending Dr. Arsh Roberts MD PGY-1 Disclaimer: Despite multiple revisions, due to the dictation software being used, the document bellow may not be free of grammatical errors including phonetic/typographic errors. However, this does not deter from our commitment to providing health care in the patient's best interest in mind.
--- NOTE | 2025-04-08 19:59 | XR_ITS ---
Examination: CT abdomen and pelvis without contrast. Coronal 3-D reconstructions. Sagittal 2-D reconstructions. Date and time of exam:April 08, 20252014 hours INDICATIONS: Shortness of breath 8 days with abdominal pain CTDI: vol (mGy): 9.66 DLP: (mGycm): 526 Technique: Axial images of the abdomen have been obtained, 3 mm slice thickness Intravenous contrast material has not been administered. Low dose protocols were performed. One or more of the following dose reduction techniques were used; automated exposure control, adjustment of the mA and/or KV according to patient size, use of iterative reconstruction technique. Findings: Large right pleural effusion Atelectasis versus pneumonia right base Cirrhosis 13 mm lateral right lobe liver lesion Mild to moderate ascites Gallstones Spleen not enlarged No pancreatic mass No hydronephrosis Aorta normal size Large pelvic mass extending into the lower abdomen, transverse dimension 15 cm cephalocaudad dimension 11 cm in AP dimension 10 cm Calcified mass contiguous with the posterior margin of the uterus 4 cm Contracted urinary bladder IMPRESSION: Large right pleural effusion Atelectasis versus pneumonia right base Cirrhosis 13 mm right lobe liver lesion, recommend elective MRI abdomen liver follow up pre and postcontrast Dgel-ta-rqxowrnd ascites Cholelithiasis 15 x 11 x 10 cm pelvic mass extending into the abdomen, differential would include ovarian neoplasm, recommend pelvic sonography follow-up
[2025-04-08] MEDS: SODIUM CHLORIDE 3%(Hypertonic) 500 ML in PRE-MIXED 1 BAG 30 ML IV (20:45)
[2025-04-08] MEDS: amLODIPine BESYLATE 5 MG TABLET 10 MG PO (20:45)
[2025-04-08 21:13] LABS: Sodium 121 mMol/L (136-145)
[2025-04-08 21:41] LABS: B-Type Natriuretic Peptide 35 pg/mL (0-100)
[2025-04-08 22:59] LABS: Potassium,Urine Random 45 mMol/L (12-62); Sodium,Urine Random 72.4 mMol/L (20.0-110.0)
[2025-04-08 23:37] LABS: Sodium 121 mMol/L (136-145)
[2025-04-09] VITALS (10 sets, daily range): BP systolic 111–150; BP diastolic 51–87; PULSE 74–98; RESP 16–92; TEMP 36.1–36.4; O2SAT 90–95
[2025-04-09] MEDS: MELATONIN 3 MG TABLET PO ×2 (00:27→20:28)
[2025-04-09 01:54] LABS: Sodium 122 mMol/L (136-145)
--- NOTE | 2025-04-09 02:55 | PC.NURSE ---
Attempted to complete med reconciliation with patient, patient stated that she doesn't have her med list with her and she can't recite it from memory, Nurse contacted MD Aguilera regarding update on med reconciliation, okayed. Med reconciliation will be attempted again when family visits patient. Care continued.
[2025-04-09] MEDS: ALBUTEROL/IPRATROPIUM (Duoneb) RT SOL 3 ML NEBU INH ×2 (03:05→23:55)
[2025-04-09 03:38] LABS: Potassium 4.5 mMol/L (3.4-5.1)
[2025-04-09 06:25] LABS: Basophils # (Auto) 0.1 Thou/mm3 (0.0-0.2); Basophils % (Auto) 1 % (0-2.5); Eosinophils # (Auto) 0.1 Thou/mm3 (0.0-0.5); Eosinophils % (Auto) 1 % (0-10); Hematocrit 31.7 % (36.0-46.0); Hemoglobin 11.2 g/dL (12.0-16.0); Immature Granulocytes % (Auto) 1 % (0-0); Immature Granulocytes Auto 0.05 Thou/mm3 (0.00-0.00); Lymphocytes # (Auto) 1.1 Thou/mm3 (1.0-4.8); Lymphocytes % (Auto) 11 % (10-50); Mean Corpuscular HGB Conc 35.3 g/dl (31.0-37.0); Mean Corpuscular Hemoglobin 27.5 pg (25.0-35.0); Mean Corpuscular Volume 78 fL (80-100); Monocytes # (Auto) 0.8 Thou/mm3 (0.0-0.8); Monocytes % (Auto) 8 % (0-12); Neutrophils # (Auto) 8.5 Thou/mm3 (1.8-7.7); Neutrophils % (Auto) 80 % (37-80); Nucleated Red Blood Cell % 0 /100 WBC (0); Platelet Count 384 Thou/mm3 (140-440); RDW Standard Deviation 39.7 fL (36.4-46.3); Red Blood Count 4.08 Miln/mm3 (4.00-5.20); White Blood Count 10.6 Thou/mm3 (3.6-11.0)
[2025-04-09 06:47] LABS: Glucose Estimated Average 123 mg/dL (80-131); Hemoglobin A1C 5.9 % Hgb (4.8-6.0)
[2025-04-09 06:56] LABS: Alanine Aminotransferase 11 U/L (10-49); Albumin, Serum 3.8 gm/dL (3.4-4.8); Albumin/Globulin Ratio 1.7 (1.2-2.2); Alkaline Phosphatase 219 U/L (46-116); Anion Gap 8 (7-16); Aspartate Amino Transferase 24 U/L (0-34); BUN/Creatinine Ratio 32 Ratio (12-20); Bilirubin,Total 0.6 mg/dL (0.3-1.2); Blood Urea Nitrogen 16 mg/dL (9-23); Calcium 8.8 mg/dL (8.3-10.6); Chloride 91 mMol/L (98-107); Creatinine (Component) 0.5 mg/dL (0.6-1.3); Estimated Creatinine Clearance 85.1 mL/min (>60); Globulin 2.2 gm/dL (2.3-3.5); Glucose 107 mg/dL (74-106); Magnesium 1.4 mg/dL (1.6-2.6); Osmolality,Calculated 248 (275-295); Phosphorous 3.3 mg/dL (2.4-5.1); Potassium 4.8 mMol/L (3.4-5.1); Sodium 123 mMol/L (136-145); Thyroid Stimulating Hormone 5.02 uIU/mL (0.55-4.78); eGFR > 60 See Note
[2025-04-09] MEDS: Magnesium Sulfate 4 GM Ivpb 4 GM/50 ML BAG IV (08:15)
[2025-04-09] MEDS: amLODIPine BESYLATE 5 MG TABLET 10 MG PO (08:16)
[2025-04-09] MEDS: Lisinopril 20 MG TABLET PO (08:16)
[2025-04-09 08:41] LABS: Sodium 124 mMol/L (136-145)
--- NOTE | 2025-04-09 08:50 | PC.SS ---
Update: Low sodium, plan is to monitor sodium level. Plan is for patient to obtain thoracentesis.
[2025-04-09 08:57] LABS: Partial Thromboplastin Time 23.1 Seconds (22.0-36.0); Prothrombin Time 11.2 Seconds (9.0-12.2)
--- NOTE | 2025-04-09 10:15 | PD.PUCONS ---
[facility] Pulmonology Consult Data of Consult Requesting Physician: Derek Taylor MD Primary Care Provider: Physician No Primary/Family Consult Narrative History of present illness: Patient is a 80-year-old female with past medical history significant for diabetes and hypertension who presents with fall after episode of dizziness. Patient recently diagnosed with shortness of breath and was treated empirically with antibiotics and bronchodilator therapy at home. Imaging now shows presence of large right-sided pleural effusion. Pulmonology consulted for further management. She does have noted acute hyponatremia and CT of the abdomen/pelvis shows large intrapelvic mass concerning for malignancy. Request for thoracentesis to help with therapeutic and diagnostic evaluation. Patient remains stable on room air. She does report some shortness of breath getting up and moving around even within the household and to the bathroom. Patient without recent cough, fever, chills, or night sweats. Weight has remained stable. No recent sick contacts. Patient without significant family history. No history of cigarette or other smoke/illicit substance use. Patient without significant alcohol use history. Patient without any occupational exposure history. cc:: cc: Derek Taylor MD Review of Systems Review of Systems Narrative Review of Systems: Pertinent review of systems completed with significant findings included in HPI above. Meds Home Medications and Allergies Home Medications ?Medication ?Instructions ?Recorded ?Confirmed ?Type meclizine 25 mg chewable tablet 25 mg PO BID PRN Dizziness 10/22/24 04/09/25 History metformin 1,000 mg tablet 1,000 mg PO QDAY 10/22/24 04/09/25 History sennosides 8.6 mg-docusate sodium 1 tab-cap PO BID PRN Constipation 10/22/24 04/09/25 History 50 mg tablet (Senna Plus) atorvastatin 20 mg tablet 20 mg PO HS 04/09/25 04/09/25 History Allergies Allergy/AdvReac Type Severity Reaction Status Date / Time No Known Allergies Allergy Verified 04/08/25 13:39 Exam Vital Signs Temp Pulse Resp BP Pulse Ox O2 Del Method 97.4 F 94 16 144/79 H 94 L Room Air 04/12/25 20:00 04/12/25 20:00 04/12/25 20:00 04/12/25 20:00 04/12/25 20:00 04/12/25 20:00 Narrative Exam GEN: NAD, AAOX3, Ivorian speaking only HEENT: MMM, EOMI NECK: No JVD CVS: S1/S2+ RRR no R/M/G PULM: Absent breath sounds at the right base, bedside USG shows large pleural effusion with undulation of lung on M-mode ABD: distended, BS+, no tenderness to palpation EXT: No pedal edema; no cyanosis/ clubbing NEURO: nonfocal on gross exam; ate lunch post procedure on her own PSYCH: appropriate mood/ affect Physical Exam Completion Physical Exam Complete?: Yes Results - Pharmacist Per Diem Labs 04/13/25 10:00 04/13/25 10:00 Labs: Short CBC 04/12/25 Range/Units 04:53 WBC 12.1 H (3.6-11.0) Thou/mm3 Hgb 10.2 L (12.0-16.0) g/dL Hct 29.9 L (36.0-46.0) % Plt Count 344 (140-440) Thou/mm3 BMP 04/12/25 04:53 Sodium 130 L Potassium 4.6 Chloride 99 Carbon Dioxide 22.9 BUN 25 H Creatinine 0.6 Glucose 180 H Calcium 8.6 Liver Function 04/12/25 Range/Units 04:53 Albumin 3.4 (3.4-4.8) gm/dL Assessment & Plan Problem List (1) Uterine mass: Status: Acute (2) Pleural effusion: Status: Acute (3) Hyponatremia: Status: Acute Additional Plan Additional Plan: Right pleural effusion Large right-sided pleural effusion in the setting of potential intrapelvic mass, concerning for malignancy. Patient is not on any blood thinners or antiplatelet therapy. Patient is agreeable to thoracentesis after discussion with her and her daughter both [place] and [place]ian. The patient will be placed in sitting position for thoracentesis which was successfully completed with the resident, see separate note. Follow-up on studies for exclusion of transudative versus exudative process and cytology was sent separately to ensure analysis for malignancy completed on this admission to help with diagnosis and staging of intrapelvic mass. Patient had no immediate complications after procedure and follow-up chest x-ray shows nearly all of the fluid was removed. Lung is reexpanded and patient reports feeling better already with no significant need for oxygen. Patient's family updated at bedside. I remain available should any other questions otherwise we will follow peripherally while she is here. Provider Notation Provider Notation: Although this document has been carefully reviewed, there may still be some phonetic and other typographical errors. These errors are purely grammatical due to imperfections in the software program and should not be construed in any way to compromise the substance of the patient's medical care during this visit. Thank you for the opportunity and privilege in assisting you with this patient's care and management.
--- NOTE | 2025-04-09 11:24 | ESOP_ITS ---
<Statement entered by Srini Wharton MD - 04/13/25 01:00> Attending Attestation: I was present for entire procedure. No immediate complications. Patient tolerated will with no significant blood loss. Follow up chest film shows no PTX. PROCEDURES: Procedure Date / Time 04/09/25 1124 Procedure Narrative Procedure Narrative: INDICATION: Recurrent Large right pleural effusion PROCEDURE ETIOLOGIST: Dr. Saldana ATTENDING PHYSICIAN: Dr. Wharton CONSENT: Patient. During the informed consent discussion regarding the procedure, or treatment, I explained the following to the patient/designee: a. Nature of the procedure or treatment and who will perform the procedure or treatment. b. Necessity for procedure and the possible benefits. c. Risks and complications (most common and serious). d. Alternative treatments and the risks, benefits and side effects of each (including no treatment). e. Likelihood of the patient achieving his/her goals without this procedure and surgery treatment. f. Problems that might occur during the recuperation. g. Conflicts of interest, if any PROCEDURE SUMMARY: A time out was performed and the chest x-ray was reviewed, the appropriate side was confirmed and marked. My hands were washed imm ediately prior to the procedure. I wore a surgical cap, mask with protective eyewear, sterile gown and sterile gloves throughout the procedure. The patient was prepped and draped in a sterile manner using chlorhexidine scrub after the appropriate level was percussed and confirmed by ultrasound. 1% lidocaine was used to anesthetize the skin, subcutaneous tissue, superior aspect of the rib periosteum and parietal pleura. A finder needle was then introduced over the superior aspect of the rib to locate the pleural fluid; straw colored fluid was aspirated at a depth of approximately 5 cm. A 10-blade scalpel was used to mikey the skin at the insertion site. The [id number]-[id number] needle was then introduced through the skin incision into the pleural space using negative aspiration pressure and the red colormetric indicator to confirm appropriate positioning of the needle. The thoracentesis catheter was then threaded without difficulty. 1900 ml of straw colored fluid was removed without difficulty. The catheter was then removed. No immediate complications were noted during the procedure. A post-procedure chest x-ray ruled out pneumothorax. The fluid will be sent for fluid analysis including LDH, protein, Gram stain and culture and cytology. Estimated blood loss is 1ml. Procedure supervised by my attending physician Dr. Dio Saldana MD PGY1
[2025-04-09] MEDS: INSULIN LISPRO (AdmeLOG) 1 UNIT/0.01 ML UNIT SC ×2 (11:36→17:43)
--- NOTE | 2025-04-09 11:37 | XR_ITS ---
Examination: AP chest single view Technique one AP portable sitting chest single view Date and time: April 09, 2025 1157 hours Comparison April 08, 2025 INDICATIONS: Clinical diagnosis pneumothorax. FINDINGS: Pneumonia right upper lobe and both bases Mild prominence left ventricle No pneumothorax Prominent osteopenia IMPRESSION: Pneumonia right upper lobe and both bases
[2025-04-09 11:52] LABS: Glucose 106 mg/dL (74-106); LDH (Lactate Dehydrogenase) 200 U/L (120-246)
[2025-04-09 12:03] LABS: Pleural Fluid WBC 1661 /cmm
[2025-04-09 12:10] LABS: Pleural Fluid Appearance Hazy; Pleural Fluid Color Yellow; Pleural Fluid Mononuclear 93 %; Pleural Fluid Polynuclear 7 %; Pleural Fluid RBC 3000 /cmm
[2025-04-09 12:22] LABS: Amylase,Pleural Fluid 27 IU/L; Glucose,Pleural Fluid 125 mg/dL; LDH,Pleural Fluid 412 IU/L; Protein Total,Pleural Fluid 4.3 g/dL
--- NOTE | 2025-04-09 14:56 | ESPR_ITS ---
<Statement entered by Eryn Martell MD - 04/18/25 07:48> I reviewed above note and agree with findings and plans. I have also personally examined the patient with medicine team and went over assessment and plan with medical team including electrical engineering intern and resident physician. Documentation for date of: 04/09/25 Subjective Subjective Interval history: Pt is an overnight admit. Pt is seen and examined at bedside this morning. Pt states she has a hard time taking deep breaths in. Denies any dizziness, chest pain or palpitation. Pt does complain of some shortness of breath. chest XR showed large right pleural effusions, pt underwent right thoracenthesis and removed 1.9L of fluid. Pleural fluid was send to lab for analysis and cytology. Pt states she is aware of the pelvic mass but cannot remember details. Pt follows [facility] outaptient. Pt states seh was told at the clinic that her sodium levels are low. Pt is alert and oriented, denies any seizures, headaches, nausea or vomitting. sodium on admission was 120, pt was started on hypertonic saline, repeat sodium is 124, therefore will discontinue the hypertonic saline to avoid overcorrection. pt is able to tolerate oral diet. vitals are otehrwise stable, labs are reviewed. Exam Vital Signs Temp Pulse Resp BP Pulse Ox O2 Del Method 97.5 F 93 18 111/51 L 91 L Room Air 04/09/25 12:00 04/09/25 12:00 04/09/25 12:00 04/09/25 12:00 04/09/25 12:00 04/09/25 12:00 Narrative Exam GENERAL: A&Ox3, elderly femalea, appears states age, cooperative Awake, Not in acute distress NEURO: no focal neurological deficits HEENT: Atraumatic, Normocephalic. mucous membranes moist. Eyes open, symmetrical, & clear HEART: Normal Heart Sounds LUNGS: Clear to auscultation with no wheezing or crackles. ABDOMEN: soft, distended, non-tender, bowel sounds heard, no guarding or rebound tenderness SKIN: No Rash or ecchymoses EXTREMITIES: No edema, tenderness, able to move all 4 extremities, pedal pulses palpated Objective Labs 04/09/25 05:39 04/09/25 15:46 Labs: Laboratory Results - last 24 hr 04/08/25 04/08/25 04/08/25 14:19 14:30 20:50 WBC RBC Hgb Hct MCV MCH MCHC RDW Std Deviation Plt Count Neut % (Auto) Lymph % (Auto) [place] % (Auto) Eos % (Auto) Baso % (Auto) Neut # (Auto) Lymph # (Auto) [place] # (Auto) Eos # (Auto) Baso # (Auto) Immature Gran # (Auto) Absolute Nucleated RBC Immature Gran % Nucleated RBC % PT INR APTT Sodium 120 L 121 L Potassium 5.0 Chloride 84 L Carbon Dioxide 23.5 Anion Gap 13 BUN 17 Creatinine 0.6 Estim Creat Clear Calc Not Performed. eGFR > 60 BUN/Creatinine Ratio 28 H Glucose [address] Glu mg/dL Hemoglobin A1c Calculated Osmolality 250 L Calcium 9.2 Corrected Calcium 9.2 Phosphorus Magnesium Total Bilirubin 0.5 AST 25 ALT 11 Alkaline Phosphatase 252 H Lactate Dehydrogenase Troponin I < 0.020 B-Natriuretic Peptide 35 Total Protein 6.6 Albumin 4.1 Globulin 2.5 Albumin/Globulin Ratio 1.6 TSH Ur Collection Type Voided Urine Color Lt-Yellow Urine Clarity Clear Urine pH 6.5 Ur Specific [place] 1.014 Urine Protein 1+ A Urine Glucose (UA) 2+ A Urine Ketones Negative Urine Blood 1+ A Urine Nitrite Negative Urine Bilirubin Negative Urine Urobilinogen (Auto) Negative Ur Leukocyte Esterase Positive Urine RBC 18 H Urine WBC 5 Ur Squamous Epith Cells < 1 Urine Bacteria None Ur Random Sodium 72.4 Ur Random Potassium 45 Ur Random Chloride 87.0 Pleural Color Pleural Appearance Pleural WBC Pleural RBC Pleural Polynuclear WBC Pleural Mononuclear WBC Pleural Total Protein Pleural LDH Pleural Glucose Pleural Amylase 04/08/25 04/09/25 04/09/25 23:13 01:34 03:16 WBC RBC Hgb Hct MCV MCH MCHC RDW Std Deviation Plt Count Neut % (Auto) Lymph % (Auto) [place] % (Auto) Eos % (Auto) Baso % (Auto) Neut # (Auto) Lymph # (Auto) [place] # (Auto) Eos # (Auto) Baso # (Auto) Immature Gran # (Auto) Absolute Nucleated RBC Immature Gran % Nucleated RBC % PT INR APTT Sodium 121 L 122 L Potassium 4.5 D Chloride Carbon Dioxide Anion Gap BUN Creatinine Estim Creat Clear Calc eGFR BUN/Creatinine Ratio Glucose Estimated Ave Glu mg/dL Hemoglobin A1c Calculated Osmolality Calcium Corrected Calcium Phosphorus Magnesium Total Bilirubin AST ALT Alkaline Phosphatase Lactate Dehydrogenase Troponin I B-Natriuretic Peptide Total Protein Albumin Globulin Albumin/Globulin Ratio TSH Ur Collection Type Urine Color Urine Clarity Urine pH Ur Specific [place] Urine Protein Urine Glucose (UA) Urine Ketones Urine Blood Urine Nitrite Urine Bilirubin Urine Urobilinogen (Auto) Ur Leukocyte Esterase Urine RBC Urine WBC Ur Squamous Epith Cells Urine Bacteria Ur Random Sodium Ur Random Potassium Ur Random Chloride Pleural Color Pleural Appearance Pleural WBC Pleural RBC Pleural Polynuclear WBC Pleural Mononuclear WBC Pleural Total Protein Pleural LDH Pleural Glucose Pleural Amylase 04/09/25 04/09/25 04/09/25 05:39 07:25 11:27 WBC 10.6 RBC 4.08 Hgb 11.2 L Hct 31.7 L MCV 78 L MCH 27.5 MCHC 35.3 RDW Std Deviation 39.7 Plt Count 384 Neut % (Auto) 80 Lymph % (Auto) 11 [place] % (Auto) 8 Eos % (Auto) 1 Baso % (Auto) 1 Neut # (Auto) 8.5 H Lymph # (Auto) 1.1 [place] # (Auto) 0.8 Eos # (Auto) 0.1 Baso # (Auto) 0.1 Immature Gran # (Auto) 0.05 H Absolute Nucleated RBC 0.00 Immature Gran % 1 H Nucleated RBC % 0 PT 11.2 INR 1.0 APTT 23.1 Sodium 123 L 124 L Potassium 4.8 Chloride 91 L Carbon Dioxide 24.0 Anion Gap 8 BUN 16 Creatinine 0.5 L Estim Creat Clear Calc 85.1 eGFR > 60 BUN/Creatinine Ratio 32 H Glucose [address] Glu mg/dL 123 Hemoglobin A1c 5.9 Calculated Osmolality 248 L Calcium 8.8 Corrected Calcium 9.0 Phosphorus 3.3 Magnesium 1.4 L Total Bilirubin 0.6 AST 24 ALT 11 Alkaline Phosphatase 219 H D Lactate Dehydrogenase 200 Troponin I B-Natriuretic Peptide Total Protein 6.0 Albumin 3.8 Globulin 2.2 L Albumin/Globulin Ratio 1.7 TSH 5.02 H Ur Collection Type Urine Color Urine Clarity Urine pH Ur Specific [place] Urine Protein Urine Glucose (UA) Urine Ketones Urine Blood Urine Nitrite Urine Bilirubin Urine Urobilinogen (Auto) Ur Leukocyte Esterase Urine RBC Urine WBC Ur Squamous Epith Cells Urine Bacteria Ur Random Sodium Ur Random Potassium Ur Random Chloride Pleural Color Yellow Pleural Appearance Hazy Pleural WBC 1661 Pleural RBC 3000 Pleural Polynuclear WBC 7 Pleural Mononuclear WBC 93 Pleural Total Protein 4.3 Pleural LDH 412 Pleural Glucose 125 Pleural Amylase 27 Quality Measures Quality Measures none Advance care planning discussed with:: patient Assessment & Plan Assessment Current Active Medications: Generic Name Dose Route Start Last Admin Trade Name Freq PRN Reason Stop Dose Admin Acetaminophen 650 mg 04/08/25 19:54 Acetaminophen 325 Mg Tablet PO 05/08/25 19:53 Q6H PRN Fever >100.4 Acetaminophen 1,000 mg 04/08/25 19:54 Acetaminophen 325 Mg Tablet PO 05/08/25 19:53 Q6H PRN PAIN SCALE 1-3 (mild Albuterol/Ipratropium 3 ml 04/08/25 20:06 04/09/25 03:05 Albuterol/Ipratropium (Duoneb) Rt [place] 3 Ml Nebu INH 05/08/25 20:05 3 ml Q6HR PRN Administration SHORTNESS OF BREATH OR WHEEZE Amlodipine Besylate 10 mg 04/08/25 20:30 04/09/25 08:16 Amlodipine Besylate 5 Mg Tablet PO 05/08/25 20:29 10 mg QDAY JARETT Administration Dextrose 25 ml 04/08/25 20:04 Dextrose 50%-Water Inj 50 Ml Syringe IV 05/08/25 20:03 Q15MIN PRN BG 50-70 responsive npo pt Dextrose 50 ml 04/08/25 20:04 Dextrose 50%-Water Inj 50 Ml Syringe IV 05/08/25 20:03 Q15MIN PRN BG <50 OR BG <70 & pt unresponsive Glucagon 1 mg 04/08/25 20:04 Glucagon Inj 1 Mg Vial IM Q15MIN PRN BG <70, and no IV access Insulin Human Lispro 0 unit 04/09/25 07:30 04/09/25 11:36 Insulin Lispro (Admelog) 1 Unit/0.01 Ml Unit SC 05/09/25 07:29 1 unit AC JARETT Administration Protocol Labetalol HCl 10 mg 04/08/25 20:29 Labetalol Inj 5 Mg/Ml Vial 20 Ml IVP 05/08/25 20:28 Q6HR PRN SBP>185 Lisinopril 20 mg 04/09/25 09:00 04/09/25 08:16 Lisinopril 20 Mg Tablet PO 05/09/25 08:59 20 mg QDAY JARETT Administration Meclizine HCl 25 mg 04/08/25 20:23 Meclizine Hcl 25 Mg Tablet PO 05/08/25 20:59 BID PRN DIZZINESS Melatonin 3 mg 04/09/25 00:10 04/09/25 00:27 Melatonin 3 Mg Tablet PO 05/09/25 00:09 3 mg HS JARETT Administration Ondansetron HCl 4 mg 04/08/25 19:54 Ondansetron Inj 2 Mg/Ml Inj 2 Ml IVP 05/08/25 19:53 Q6H PRN NAUSEA OR VOMITING Protocol Plan Mr. De Guzman is a 80-year-old female with past medical history of diabetes, hypertension, hyperlipidemia, asthma who presented to the ED due to generalized weakness. Admitted for management of hyponatremia. #Euvolemic Hypoosmolar Hyponatremia Likely in the setting due to poor oral intake vs diuretic use Patient presented with 3 days of generalized weakness having dizziness and decreased PO intake for more than 2 months, patient also takes lisinopril-HCTZ Patient has had previous admissions for severe hyponatremia Current sodium 120 -Sodium checks every 3 hours, goal 124-126 in first 24 hours -Hypertonic saline 500 mL x 1 in was given on admission. Will discontinue to avoid over correction -Strict ins and outs - Urine electrolytes ordered #Right-sided pleural effusion CXR: show large right pleural effusions -s/p thoracenthesis on 04/09- removed 1.9L fluid -pleural fluid analysis is consistent with exudative pleural effusions DDx: low suspicion of pneumonia as pt denies sick contacts, recent illness, cough, fever and leukocyte count. malignancy is of high suspicion as pt has a pelvic mass seen on CT Plan: -cytology pending ? Echo ordered ? Consider diuretics or ultrasound-guided thoracentesis #Pelvic mass -CT abdomen/pelvis: showed 15 x 11 x 10 cm pelvic mass extending into the abdomen. -Pt states she is aware of the mass but cannot recall who told her and the details around it Plan: -Pelvic US ordered -Based on US findings, will consider consult OBGYN #Cirrhosis #Liver lesion #Ascites -CT abdomen/Pelvis: shows cirrhosis, 13mm right lobe liver lesions and mild to moderate ascites -Pt is not in decompensation state: no coagulaopathy, AST, ALT and T. 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 DuoNebs as needed ? Pending med rec Health Maintenance: Disposition: Telemetry monitoring hyponatremia and s/p thoracenthesis Feeding: Regular Thrombo prophylaxis: SCDs Gastric Ulcer prophylaxis: None CODE STATUS: Full code Assessment and plan discussed with my attending physician Dr. Jasbir Caban ([id number]-1)- Internal medicine resident
--- NOTE | 2025-04-09 14:58 | PC.SS ---
Rounding Note: Trending sodium. Thoracentesis completed.
--- NOTE | 2025-04-09 15:47 | XR_ITS ---
Examination: Pelvic ultrasound, transabdominal, complete Technique: Transabdominal ultrasound of the pelvis performed using grayscale imaging Date and time of exam: April 09, 2025 1629 hours INDICATIONS: 15 x 11 x 10 cm pelvic mass extending into the abdomen on CT examination April 08, 2025 FINDINGS: Uterus 11.1 cm, large pedunculated vascular mass arising from the uterine body 10.5 x 11.3 x 17.2 cm Ovaries obscured by bowel gas Free fluid in the adnexal region IMPRESSION: Large pedunculated vascular mass left uterine body 10.5 x 11.3 x 17.2 cm, differential would include malignant neoplasm of the uterus Recommend MRI pelvis follow-up pre and postcontrast
[2025-04-09 16:31] LABS: Sodium 126 mMol/L (136-145)
[2025-04-09 19:14] LABS: Sodium 123 mMol/L (136-145)
[2025-04-09] MEDS: ACETAMINOPHEN 500 MG TABLET 1000 MG PO (20:39)
--- NOTE | 2025-04-09 20:54 | ECHO_ITS ---
Transthoracic Echo Report Ht (in): 59 Wt (lb): 177 Exam Location: Echo Lab Status: Inpatient Engine Installer: Elizabeth Schmitt Indications: Procedure Performed: BP: 155 / 79 HR: 79 Technical Quality: Technically Difficult MEASUREMENTS (Male / Female) Normal Values 2D ECHO LV Diastolic Diameter PLAX 2.4 cm 4.2 - 5.9 / 3.9 - 5.3 cm LV Systolic Diameter PLAX 1.5 cm IVS Diastolic Thickness 1.8 cm 0.6 - 1.0 / 0.6 - 0.9 cm LVPW Diastolic Thickness 1.1 cm 0.6 - 1.0 / 0.6 - 0.9 cm LV Relative Wall Thickness 1.2 LVOT Diameter 2.0 cm Ascending Aorta Diameter 2.6 cm DOPPLER AV Peak Velocity 176.0 cm/s AV Peak Gradient 12.4 mmHg LVOT Peak Velocity 111.0 cm/s LVOT Peak Gradient 4.9 mmHg AV Area Cont Eq pk 2.0 cm? MV Peak Velocity 148.0 cm/s MV Peak Gradient 8.8 mmHg MV Mean Velocity 78.9 cm/s MV Mean Gradient 3.0 mmHg MV Area PHT 2.5 cm? Mitral E Point Velocity 82.9 cm/s Mitral A Point Velocity 128.0 cm/s Mitral E to A Ratio 0.6 PV Peak Velocity 117.0 cm/s PV Peak Gradient 5.5 mmHg FINDINGS Left Ventricle Normal left ventricular size and systolic function with no obvious regional wall motion abnormalities. Moderate left ventricular hypertrophy. Normal left ventricular diastolic filling pattern for age. The ejection fraction is visually estimated at 75 %. Right Ventricle Right ventricle is not well visualized. Left Atrium The left atrium is normal by two-dimensional, color flow and Doppler imaging with no structural abnormalities, no thrombus formation present. Right Atrium The right atrium is not well visualized. Atrial Septum The interatrial septum appears normal with no evidence of a shunt. Aorta The aorta is normal by two-dimensional, color flow and Doppler interrogation. Mitral Valve The mitral valve annulus is moderately calcified. Systolic anterior motion of the anterior mitral valve leaflet. There is trace mitral regurgitation. Aortic Valve The aortic valve is trileaflet and moderately calcified without stenosis.There is no significant aortic valve regurgitation. Tricuspid Valve The tricuspid valve is not well visualized. There is no significant tricuspid valve regurgitation. Pulmonic Valve The pulmonic valve is not well visualized. There is no significant pulmonic valve regurgitation. Vessels The pulmonary artery appears normal. The inferior vena cava pulmonary and hepatic veins appear normal. Pericardium The pericardium is normal by two-dimensional imaging. There is no significant pericardial effusion. CONCLUSIONS Indications: Eval for CHF Normal LV size and function. Moderate LVH. Estimated EF 75%. Stage 1 diastolic dysfunction. RV not well visualized. RVSP could not be measured be because of insufficient TR jet Moderate MAC. Trace MR. No pericardial effusion Moderate aortic valve sclerosis without stenosis. Trace SHASHANK Durán (Electronically Signed) Final Date: 10 April 2025 19:37
[2025-04-09 21:59] LABS: Sodium 122 mMol/L (136-145)
[2025-04-10] VITALS (11 sets, daily range): BP systolic 114–143; BP diastolic 56–81; PULSE 68–85; RESP 17–94; TEMP 36.2–36.5; O2SAT 94–96; BMI 37.3
[2025-04-10 05:37] LABS: Basophils # (Auto) 0.1 Thou/mm3 (0.0-0.2); Basophils % (Auto) 1 % (0-2.5); Eosinophils # (Auto) 0.1 Thou/mm3 (0.0-0.5); Eosinophils % (Auto) 1 % (0-10); Hematocrit 30.5 % (36.0-46.0); Hemoglobin 10.8 g/dL (12.0-16.0); Immature Granulocytes % (Auto) 1 % (0-0); Immature Granulocytes Auto 0.06 Thou/mm3 (0.00-0.00); Lymphocytes # (Auto) 1.6 Thou/mm3 (1.0-4.8); Lymphocytes % (Auto) 16 % (10-50); Mean Corpuscular HGB Conc 35.4 g/dl (31.0-37.0); Mean Corpuscular Hemoglobin 27.6 pg (25.0-35.0); Mean Corpuscular Volume 78 fL (80-100); Monocytes # (Auto) 0.8 Thou/mm3 (0.0-0.8); Monocytes % (Auto) 8 % (0-12); Neutrophils # (Auto) 7.5 Thou/mm3 (1.8-7.7); Neutrophils % (Auto) 74 % (37-80); Nucleated Red Blood Cell % 0 /100 WBC (0); Platelet Count 333 Thou/mm3 (140-440); RDW Standard Deviation 40.4 fL (36.4-46.3); Red Blood Count 3.91 Miln/mm3 (4.00-5.20); White Blood Count 10.1 Thou/mm3 (3.6-11.0)
[2025-04-10 06:43] LABS: Alanine Aminotransferase 10 U/L (10-49); Albumin, Serum 3.3 gm/dL (3.4-4.8); Albumin/Globulin Ratio 1.5 (1.2-2.2); Alkaline Phosphatase 197 U/L (46-116); Anion Gap 10 (7-16); Aspartate Amino Transferase 19 U/L (0-34); BUN/Creatinine Ratio 30 Ratio (12-20); Bilirubin,Total 0.3 mg/dL (0.3-1.2); Blood Urea Nitrogen 21 mg/dL (9-23); Calcium 8.8 mg/dL (8.3-10.6); Calcium (Corrected) 9.4 mg/dL (8.5-10.1); Carbon Dioxide 22.2 mMol/L (20.0-31.0); Chloride 94 mMol/L (98-107); Creatinine (Component) 0.7 mg/dL (0.6-1.3); Estimated Creatinine Clearance 62.1 mL/min (>60); Free T4 (Free Thyroxine) 1.27 ng/dL (0.89-1.76); Globulin 2.2 gm/dL (2.3-3.5); Glucose 150 mg/dL (74-106); Magnesium 1.8 mg/dL (1.6-2.6); Osmolality,Calculated 259 (275-295); Phosphorous 3.8 mg/dL (2.4-5.1); Potassium 4.8 mMol/L (3.4-5.1); Sodium 126 mMol/L (136-145); Total Protein 5.5 gm/dL (5.7-8.2); eGFR > 60 See Note
[2025-04-10] MEDS: Lisinopril 20 MG TABLET PO (08:11)
[2025-04-10] MEDS: amLODIPine BESYLATE 5 MG TABLET 10 MG PO (08:12)
--- NOTE | 2025-04-10 09:16 | ESCONSULT_ITS ---
HPI Data of Consult Consult date: 04/10/25 Requesting Physician: Tanner Moore DO Admitting Provider: Vanessa Caban MD Attending Provider: Tanner Moore DO Primary Care Provider: Physician No Primary/Family Consult Narrative Reason for consult: Hyponatremia History of present illness: Ms. Royal is a Angolan only speaking, [id number]-year-old female with a past medical history of diabetes mellitus, hypertension, chronic hyponatremia/SIADH who presented to the ER complaining of generalized weakness and fatigue and abdominal distention. Patient reported that she started feeling weak, dizzy and short of breath but reported she can walk short distances without difficulty. The patient had recently seen her primary care physician for shortness of breath/bronchitis symptoms initially improved but then progressively became worse. Mental status stays at baseline. Nephrology was consulted for management of hyponatremia. Initial vitals in the ER, blood pressure 181/75, pulse 91/min, respiratory 16/min, Tmax 98.1, saturating 97% on room air. Initial labs on presentation showed serum sodium 120, potassium 5, carbon oxide 23, BUN 17 creatinine 0.6 glucose 217. Initial chest x-ray showed a large right-sided pleural effusion, The patient received right-sided thoracentesis, 1900 mL straw-colored fluid was removed, sent for pleural fluid analysis and cytology. Chest x-ray shows pneumonia right upper lobe and both bases, large right pleural effusion. CT abdomen and pelvis showed large right pleural effusion, atelectasis versus pneumonia, cirrhosis, 30 mm right lobe liver lesion, mild to moderate ascites, cholelithiasis, 15 to 10 cm pelvic mass extending to abdomen, differential includes neoplasm, pelvis ultrasound was done which showed large pedunculated vascular mass left uterine body, recommended MRI pelvis pre and postcontrast follow-up. cc:: cc: Tanner Moore DO Review of Systems Review of Systems Systems Reviewed: All systems reviewed, normal except as documented Past Medical History Past Medical History NEUROLOGIC: Negative Neurological Disorders, Cerebrovascular Accident, Transient Ischemic Attacks (TIA), Dementia, Alzheimer's Disease, Parkinson's Disease, Brain Tumor, Meningitis, Seizures, Epilepsy, Multiple Sclerosis, Cerebral Palsy, Amyotrophic Lateral Sclerosis (ALS/Aby Gehrig's), Guillain-Monson Syndrome, Spina Bifida, Paralysis, Peripheral Neuropathy, De Oliveira's Palsy, Subdural Hematoma, Migraine, Head Trauma, Spinal Cord Injury or Traumatic Brain Injury CARDIAC: Positive Hypercholesterolemia and Hypertension; Negative Cardiac Disorders, Myocardial Infarction, Cardiac Arrhythmia, Atrial Fibrillation, Angina, Heart Murmur, Coronary Artery Disease, Atherosclerotic Heart Disease, Peripheral Vascular Disease, Aneurysm, Congestive Heart Failure, Congenital Heart Disease, Valvular Heart Disease, Rheumatic Fever, Cardiomyopathy, Edema, Pericarditis, Cellulitis, Deep Vein Thrombosis, Hypotension or Varicose Veins RESPIRATORY: Positive Asthma and Bronchitis; Negative Chronic Obstructive Pulmonary Disease (COPD), Emphysema, Pneumonia, Pulmonary Fibrosis, Cystic Fibrosis, Tuberculosis, Pulmonary Embolism, Pulmonary Edema or Sleep Apnea GASTROINTESTINAL: Negative Gastrointestinal Disorders, Cirrhosis, Celiac Disease, Gall Bladder Disease, Gastrointestinal Bleed, Esophageal Varices, Timmons's Esophagus, Colitis, Ulcerative Colitis, Diverticulitis, Diverticulosis, Ulcer, Irritable Bowel, Crohn's Disease, Obstructive Bowel, Hiatal Hernia, Hemorrhoids, Gastroesophageal Reflux Disease or Obesity GENITOURINARY: Negative Genitourinary Disorders, Renal Disease, Kidney Stones, Polycystic Kidney Disease, Neurogenic Bladder, Inguinal Hernia, Dialysis or Benign Prostatic Hyperplasia REPRODUCTIVE: Negative Endometriosis, Genital Herpes, Gonorrhea, Pelvic Inflammatory Disease, Previous Pregnancies, Syphilis or Uterine Prolapse MUSCULOSKELETAL: Negative Musculoskeletal Disorders, Muscular Dystrophy, Myasthenia Gravis, Marfan's Syndrome, Arthritis, Rheumatoid Arthritis, Osteoporosis, Degenerative Disk Disease, Gout, Scoliosis, Carpal Tunnel Syndrome, Fibromyalgia, Fractures, Degenerative Joint Disease, Osteomyelitis or Poliovirus ENT: Negative Cataracts, Glaucoma, Blind, Retinal Detachment, Macular Degeneration, Ear Infection, Deafness, Head Trauma or Eye Prosthesis ENDOCRINE: Positive Endocrine Disorders and Diabetes Mellitus Type 2; Negative Diabetes Mellitus Type 1, Hypoglycemia, [place]'s Syndrome, Gratiot's Disease, Hyperthyroidism, Hypothyroidism, Parathyroid Disease, Pituitary Disease, Systemic Lupus Erythematosus, Syndrome of Inappropriate Antidiuretic Hormone (SIADH), Adrenal Disease or Graves' Disease HEMATOLOGIC: Positive Blood Disorders and Anemia; Negative Leukemia, Hemophilia, Thalassemia, Sickle Cell Disease or Clotting Problems PSYCHO/SOCIAL: Positive Depression; Negative Psychiatric Problems, Schizophrenia, Recreational Drug Use, Bipolar Disorder, Anxiety, Behavior Problems, Self-Mutilation, Attention Deficit Disorder, Attention Deficit Hyperactivity Disorder, Post Traumatic Stress Disorder or Eating Disorder OTHER HISTORY: Negative Autoimmune Disease, Autism or Organ Transplant Family History FAMILY HISTORY: Negative Family Psychiatric Problems, Family Respiratory Disorders, Family Cardiac Disorders, Family Gastrointestinal Problems, Family Cancer, Family Surgery or Family Anesthesia Reaction Surgical History SURGICAL: Negative Cardiac Surgery, Open Heart Surgery, Coronary Artery Bypass Graft, Valve Replacement, Vascular Surgery, Coronary Stent, Cardiac Catheterization, Pacemaker, Angiogram, Auto Implanted Cardiovert Defib, Carotid Endarterectomy, Endocrine Surgery, Thyroidectomy, Ear Surgery, Tympanostomy Tube, Eye Surgery, Nose Surgery, Oral Surgery, Tonsillectomy, Adenoidectomy, Cochlear Implant, Corneal Transplant, Throat Surgery, Abdominal Surgery, Tracheostomy, Gastric Bypass Surgery, Gastrostomy, Bowel Surgery, Nephrectomy, Transurethral Resection, Joint Replacement, Amputation, Open Reduction Internal Fixation, Arthroscopy, Neurologic Surgery, Brain Shunt, Mastectomy, Lumpectomy, Hysterectomy, Tubal Ligation, Section or Organ Transplant Social History SMOKING STATUS: Never smoker SECOND HAND EXPOSURE: No Exam Vital Signs Temp Pulse Resp BP Pulse Ox O2 Del Method 97.7 F 82 20 114/56 L 95 Room Air 04/10/25 08:00 04/10/25 08:50 04/10/25 08:50 04/10/25 08:12 04/10/25 08:00 04/10/25 08:00 Narrative Exam General: AOx3, cooperative, Angolan only speaker, noted facial/periorbital puffiness. Skin: Intact, no cyanosis or edema noted. HEENT: Atraumatic/normocephalic, DANA, neck supple Heart: RRR, S1 and S2 without clicks or murmurs Lungs: Basal rhonchi on auscultation, dressing at the site of right thoracentesis is clean and dry. Abdomen: Abdomen is soft but does seem distended, positive ascites.. Vascular: Peripheral pulses palpable Neuro: No focal neurological deficits noted. Results Labs 04/10/25 04:59 04/10/25 04:59 Labs: Short CBC 04/10/25 Range/Units 04:59 WBC 10.1 (3.6-11.0) Thou/mm3 Hgb 10.8 L (12.0-16.0) g/dL Hct 30.5 L (36.0-46.0) % Plt Count 333 D (140-440) Thou/mm3 BMP 04/09/25 04/09/25 04/09/25 07:25 15:46 18:36 Sodium 126 L 123 L Potassium Chloride Carbon Dioxide BUN Creatinine Glucose 106 Calcium 04/09/25 04/10/25 21:38 04:59 Sodium 122 L 126 L Potassium 4.8 Chloride 94 L Carbon Dioxide 22.2 BUN 21 Creatinine 0.7 Glucose 150 H Calcium 8.8 Liver Function 04/10/25 Range/Units 04:59 Total Bilirubin 0.3 (0.3-1.2) mg/dL AST 19 (0-34) U/L ALT 10 (10-49) U/L Alkaline Phosphatase 197 H D (46-116) U/L Albumin 3.3 L D (3.4-4.8) gm/dL Quality Measures Quality Measures none Advance care planning discussed with:: patient Medications Home Medications and Allergies Home Medications ?Medication ?Instructions ?Recorded ?Confirmed ?Type meclizine 25 mg chewable tablet 25 mg PO BID PRN Dizzi ness 10/22/24 04/09/25 History metformin 1,000 mg tablet 1,000 mg PO QDAY 10/22/24 History sennosides 8.6 mg-docusate sodium 1 tab-cap PO BID PRN Constipation 10/22/24 04/09/25 History 50 mg tablet (Senna Plus) atorvastatin 20 mg tablet 20 mg PO HS 04/09/25 5 History Allergies Allergy/AdvReac Type Severity Reaction Status Date / Time No Known Allergies Allergy Verified 04/08/25 13:39 Visit Medications Acetaminophen (Acetaminophen 325 Mg Tablet) 650 mg PO Q6H PRN PRN Reason: Fever >100.4 Stop: 05/08/25 19:53 Acetaminophen (Acetaminophen 500 Mg Tablet) 325 mg PO Q6H PRN PRN Reason: PAIN SCALE 1-3 (mild Stop: 05/09/25 20:35 Albuterol/Ipratropium (Albuterol/Ipratropium (Duoneb) Rt Meseret 3 Ml Nebu) 3 ml INH Q6HR PRN PRN Reason: SHORTNESS OF BREATH OR WHEEZE Stop: 05/08/25 20:05 Last Admin: 04/09/25 23:55 Dose: 3 ml Amlodipine Besylate (Amlodipine Besylate 5 Mg Tablet) 10 mg PO QDAY JARETT Stop: 05/08/25 20:29 Last Admin: 04/10/25 08:12 Dose: 10 mg Dextrose (Dextrose 50%-Water Inj 50 Ml Syringe) 25 ml IV Q15MIN PRN PRN Reason: BG 50-70 responsive npo pt Stop: 05/08/25 20:03 Dextrose (Dextrose 50%-Water Inj 50 Ml Syringe) 50 ml IV Q15MIN PRN PRN Reason: BG <50 OR BG <70 & pt unresponsive Stop: 05/08/25 20:03 Glucagon (Glucagon Inj 1 Mg Vial) 1 mg IM Q15MIN PRN PRN Reason: BG <70, and no IV access Insulin Human Lispro (Insulin Lispro (Admelog) 1 Unit/0.01 Ml Unit) 0 unit SC AC [facility]; Protocol Stop: 05/09/25 07:29 Last Admin: 04/10/25 07:26 Dose: Not Given Labetalol HCl (Labetalol Inj 5 Mg/Ml Vial 20 Ml) 10 mg IVP Q6HR PRN PRN Reason: SBP>185 Stop: 05/08/25 20:28 Lisinopril (Lisinopril 20 Mg Tablet) 20 mg PO QDAY [facility] Stop: 05/09/25 08:59 Last Admin: 04/10/25 08:11 Dose: 20 mg Meclizine HCl (Meclizine Hcl 25 Mg Tablet) 25 mg PO BID PRN PRN Reason: DIZZINESS Stop: 05/08/25 20:59 Melatonin (Melatonin 3 Mg Tablet) 3 mg PO HS [facility] Stop: 05/09/25 00:09 Last Admin: 04/09/25 20:28 Dose: 3 mg Ondansetron HCl (Ondansetron Inj 2 Mg/Ml Inj 2 Ml) 4 mg IVP Q6H PRN; Protocol PRN Reason: NAUSEA OR VOMITING Stop: 05/08/25 19:53 Discontinued Medications Acetaminophen (Acetaminophen 500 Mg Tablet) 1,000 mg PO Q6H PRN PRN Reason: PAIN SCALE 1-3 (mild Stop: 05/09/25 20:35 Last Admin: 04/09/25 20:39 Dose: 1,000 mg Sodium Chloride (Ns) 1,000 mls @ 999 mls/hr IV .Q1H1M ONE Stop: 04/08/25 19:04 Last Infusion: 04/08/25 19:56 Dose: Infused Sodium Chloride 500 ml/ IV (Miscellaneous Supplies) 500 mls @ 30 mls/hr IV X1 ONE Stop: 04/09/25 12:33 Last Infusion: 04/09/25 19:12 Dose: Infused Magnesium Sulfate (Magnesium Sulfate Ivpb) 4 gm in 50 mls @ 12.5 mls/hr IV X1 ONE Stop: 04/09/25 11:22 Last Infusion: 04/09/25 19:12 Dose: Infused Assessment & Plan Problem List (1) SIADH (syndrome of inappropriate ADH production): Status: Acute Assessment and plan: Nephrology is consulted for hyponatremia, patient has SIADH leading to chronic hyponatremia but additional factors contributing to low sodium including cirrhosis with ascites. Patient needs to be fluid restricted, currently intake record shows 2500 mL last 24 hours. Urine output 550 mL, net positive almost 2000 mL. Urine electrolytes showed urine sodium 72, urine potassium 45, urine chloride 87, consistent with SIADH. Of note patient has past medical history of hyponatremia and SIADH, was previously complicated by thiazide diuretic use during previous hospitalization, serum sodium dropped down to as low as 108 in October 2024. Thiazide diuretic continues to be withheld. Patient's mental status stays at baseline, no acute neurological deficit noted. ? Fluid restriction to 1200 cc daily with Strict input and output monitoring. ? Trend serum sodium on daily labs, ? Can consider salt tabs, though in the setting of SIADH and cirrhosis adding salt tabs might be challenging (2) Pleural effusion: Status: Acute Assessment and plan: S/p thoracentesis, pending cytology and pleural fluid analysis, exudative effusion based on lights criteria parapneumonic versus malignant effusion. X- ray reported as having right-sided pleural effusion, x-ray film from 04/08/25 does seem to be labeled incorrectly, flipped horizontally. ? Management per primary team (3) Pneumonia: Status: Acute Assessment and plan: Following resolution of pleural effusion, chest x-ray reported as positive for pneumonia ? Management per primary team (4) Cirrhosis: Status: Acute Assessment and plan: Noted to have cirrhosis with ascites in the setting of pelvic mass and right liver lobe lesion. ? Consider oncology consult and tumor markers. ? Recommend holding off on diuresis due to concurrent hyponatremia. ? Management per primary team (5) Pelvic mass in female: Status: Acute Assessment and plan: Uterine versus ovarian mass seen on CT and pelvic ultrasound. Pending MRI brain postcontrast for follow-up. ? Consider oncology consult and tumor markers. ? Management per primary team Plan Plan of care discussed with Dr. Mili Connors PGY2 Attending Provider Attestation/Addendum Patient seen and examined with resident physician Dr. Connors. Note reviewed, agree with findings and recommendations. Renal consultation requested for hyponatremia. Patient seems to have underlying SIADH. Agree with the fluid restriction. Sodium started to improve. Will monitor sodium closely. Thank you Juliocesar for allowing me to participate in the care of Ms. Royal
[2025-04-10] MEDS: INSULIN LISPRO (AdmeLOG) 1 UNIT/0.01 ML UNIT SC ×2 (11:27→17:00)
--- NOTE | 2025-04-10 11:38 | PC.SS ---
MILLWORK ESTIMATOR conducted bedside contact with the patient conduct initial assessment and to discuss discharge planning.? At bedside with patient was daughter, Snehal Gallegos .? Patient is Moroccan speaking.? Daughter provided information for assessment and discharge planning.? Patient resides at home with spouse.? Patient does not utilize DME to assist with ambulation.? Patient does not require home oxygen.? Patient possesses ability to complete ADL?s independently.? Patient identified daughter, Snehal Gallegos; as surrogate medical decision maker.? Patient utilizes [facility] for PCP services.? Patient does not possess any specialty providers.? Patient possesses a history of diabetes.? Non-insulin dependent.? Patient utilizes [facility] for medication services.? Patient aligned with [facility] health in the past.? If home health recommended, [facility] preferred home health agency.? Discharge plan is for the patient to return home at the time of discharge.? Family will provide transportation on behalf of the patient.? No discharge needs identified by the patient.? No further intervention required at this time, social service liaison will be available to address any further concerns.? Next of Kin: Snehal El D/C Plan: Home
--- NOTE | 2025-04-10 14:32 | PD.RESPRO ---
Documentation for date of: 04/10/25 Subjective Subjective Interval history: No acute overnight events reported. Pt is seen and examined at beside this morning. Patient endorses to significant improvement in shortness of breath after thoracentesis yesterday. Using a nurse's companion over the phone, patient is informed about the likelihood of pelvic mass may be malignant and will consult [employer] MAKE UP HELPER for further recommendations. Patient may need biopsy to confirm which patient is agreeable to. Patient states that she had noticed vaginal spotting in the past which she contributed to a UTI because every time she noticed and her primary care had given her a course of antibiotics for UTI and the bleeding went away. Patient asked to inform her stepdaughter about the details of the findings. Patient denies any abdominal pain, tenderness or pelvic pain. Vitals are stable with blood pressure 133/66, labs are significant for hemoglobin 10.8, hematocrit 30.5, sodium is 126 and the remainder of the labs are nonsignificant. Will continue fluid restriction for hyponatremia and consult nephrology for further recommendations. Patient has no other complaints. Exam Vital Signs Temp Pulse Resp BP Pulse Ox O2 Del Method 97.7 F 81 19 131/81 H 96 Room Air 04/10/25 12:00 04/10/25 12:00 04/10/25 12:00 04/10/25 12:00 04/10/25 12:00 04/10/25 12:00 Narrative Exam GENERAL: A&Ox3, elderly female, appears stated age, cooperative Awake, Not in acute distress NEURO: no focal neurological deficits HEENT: Atraumatic, Normocephalic. mucous membranes moist. Eyes open, symmetrical, & clear HEART: Normal Heart Sounds LUNGS: Clear to auscultation with no wheezing or crackles. ABDOMEN: soft, distended, non-tender, bowel sounds heard, no guarding or rebound tenderness SKIN: No Rash or ecchymoses EXTREMITIES: No edema, tenderness, able to move all 4 extremities, pedal pulses palpated Objective Labs 04/10/25 04:59 04/10/25 04:59 Labs: Laboratory Results - last 24 hr 04/09/25 04/09/25 04/09/25 15:46 18:36 21:38 WBC RBC Hgb Hct MCV MCH MCHC RDW Std Deviation Plt Count Neut % (Auto) Lymph % (Auto) [place] % (Auto) Eos % (Auto) Baso % (Auto) Neut # (Auto) Lymph # (Auto) [place] # (Auto) Eos # (Auto) Baso # (Auto) Immature Gran # (Auto) Absolute Nucleated RBC Immature Gran % Nucleated RBC % Sodium 126 L 123 L 122 L Potassium Chloride Carbon Dioxide Anion Gap BUN Creatinine Estim Creat Clear Calc eGFR BUN/Creatinine Ratio Glucose Calculated Osmolality Calcium Corrected Calcium Phosphorus Magnesium Total Bilirubin AST ALT Alkaline Phosphatase Total Protein Albumin Globulin Albumin/Globulin Ratio Free T4 04/10/25 04:59 WBC 10.1 RBC 3.91 L Hgb 10.8 L Hct 30.5 L MCV 78 L MCH 27.6 MCHC 35.4 RDW Std Deviation 40.4 Plt Count 333 D Neut % (Auto) 74 Lymph % (Auto) 16 [place] % (Auto) 8 Eos % (Auto) 1 Baso % (Auto) 1 Neut # (Auto) 7.5 Lymph # (Auto) 1.6 [place] # (Auto) 0.8 Eos # (Auto) 0.1 Baso # (Auto) 0.1 Immature Gran # (Auto) 0.06 H Absolute Nucleated RBC 0.00 Immature Gran % 1 H Nucleated RBC % 0 Sodium 126 L Potassium 4.8 Chloride 94 L Carbon Dioxide 22.2 Anion Gap 10 BUN 21 Creatinine 0.7 Estim Creat Clear Calc 62.1 eGFR > 60 BUN/Creatinine Ratio 30 H Glucose 150 H Calculated Osmolality 259 L Calcium 8.8 Corrected Calcium 9.4 Phosphorus 3.8 Magnesium 1.8 Total Bilirubin 0.3 AST 19 ALT 10 Alkaline Phosphatase 197 H D Total Protein 5.5 L Albumin 3.3 L D Globulin 2.2 L Albumin/Globulin Ratio 1.5 Free T4 1.27 Quality Measures Quality Measures none Advance care planning discussed with:: patient and child (step daughter) Assessment & Plan Assessment Current Active Medications: Generic Name Dose Route Start Last Admin Trade Name Freq PRN Reason Stop Dose Admin Acetaminophen 650 mg 04/08/25 19:54 Acetaminophen 325 Mg Tablet PO 05/08/25 19:53 Q6H PRN Fever >100.4 Acetaminophen 325 mg 04/10/25 07:53 Acetaminophen 500 Mg Tablet PO 05/09/25 20:35 Q6H PRN PAIN SCALE 1-3 (mild Albuterol/Ipratropium 3 ml 04/08/25 20:06 04/09/25 23:55 Albuterol/Ipratropium (Duoneb) Rt Meseret 3 Ml Nebu INH 05/08/25 20:05 3 ml Q6HR PRN Administration SHORTNESS OF BREATH OR WHEEZE Amlodipine Besylate 10 mg 04/08/25 20:30 04/10/25 08:12 Amlodipine Besylate 5 Mg Tablet PO 05/08/25 20:29 10 mg QDAY JARETT Administration Dextrose 25 ml 04/08/25 20:04 Dextrose 50%-Water Inj 50 Ml Syringe IV 05/08/25 20:03 Q15MIN PRN BG 50-70 responsive npo pt Dextrose 50 ml 04/08/25 20:04 Dextrose 50%-Water Inj 50 Ml Syringe IV 05/08/25 20:03 Q15MIN PRN BG <50 OR BG <70 & pt unresponsive Glucagon 1 mg 04/08/25 20:04 Glucagon Inj 1 Mg Vial IM Q15MIN PRN BG <70, and no IV access Insulin Human Lispro 0 unit 04/09/25 07:30 04/10/25 11:27 Insulin Lispro (Admelog) 1 Unit/0.01 Ml Unit SC 05/09/25 07:29 4 unit AC JARETT Administration Protocol Labetalol HCl 10 mg 04/08/25 20:29 Labetalol Inj 5 Mg/Ml Vial 20 Ml IVP 05/08/25 20:28 Q6HR PRN SBP>185 Lisinopril 20 mg 04/09/25 09:00 04/10/25 08:11 Lisinopril 20 Mg Tablet PO 05/09/25 08:59 20 mg QDAY JARETT Administration Meclizine HCl 25 mg 04/08/25 20:23 Meclizine Hcl 25 Mg Tablet PO 05/08/25 20:59 BID PRN DIZZINESS Melatonin 3 mg 04/09/25 00:10 04/09/25 20:28 Melatonin 3 Mg Tablet PO 05/09/25 00:09 3 mg HS JARETT Administration Ondansetron HCl 4 mg 04/08/25 19:54 Ondansetron Inj 2 Mg/Ml Inj 2 Ml IVP 05/08/25 19:53 Q6H PRN NAUSEA OR VOMITING Protocol Plan Mr. De Guzman is a 80-year-old female with past medical history of diabetes, hypertension, hyperlipidemia, asthma who presented to the ED due to generalized weakness. Admitted for management of hyponatremia. #Euvolemic Hypoosmolar Hyponatremia #Chronic hyponatremia Likely in the setting due to poor oral intake vs diuretic use (pt was taking combination pill of lisinopril-hydrochlorothiazide) Patient presented with 3 days of generalized weakness having dizziness and decreased PO intake for more than 2 months, patient also takes lisinopril-HCTZ Patient has had previous admissions for severe hyponatremia On admission sodium 120- corrected to 126 in first 24 hours (Hypertonic saline 500 mL x 1 in was given on admission and was discontinued to avoid over correction) Plan: -Will continue to monitor daily CMP -Fluid restriction to 1200cc daily -Strict ins and outs -Urine electrolytes WNL -Nephrology consulted, appreciate recommendations #Right-sided pleural effusion CXR: show large right pleural effusions -s/p thoracenthesis on 04/09- removed 1.9L fluid -Pleural fluid analysis is consistent with exudative pleural effusions DDx: low suspicion of pneumonia as pt denies sick contacts, recent illness, cough, fever and leukocyte count. Malignancy is of high suspicion as pt has a pelvic mass seen on imaging and endorses to vaginal spotting Plan: -Cell cytology of the pleural fluid pending -Echo ordered #Abnormal Uterine and vaginal bleeding, unspecified #Pelvic mass CT abdomen/pelvis: showed 15 x 11 x 10 cm pelvic mass extending into the abdomen. Pt states she is aware of the mass but cannot recall who told her and the details around it Patient endorses to vaginal spotting which she contributed to a UTI because every time she noticed and her primary care had given her a course of antibiotics for UTI and the bleeding went away. Pelvis US: Large pedunculated vascular mass left uterine body 10.5 x 11.3 x 17.2 cm Plan: -consult [employer] MAKE UP HELPER, appreciate recommendations #Cirrhosis #Liver lesion #Ascites -CT abdomen/Pelvis: shows cirrhosis, 13mm right lobe liver lesions and mild to moderate ascites -Pt is not in decompensation state: no coagulaopathy, AST, ALT and T. nory WNL -No abdominal tenderness Plan: -Pt will need outpatient follow up with weapons system instrument mechanic #Non-Insulin dependent type 2 Diabetes -Blood glucose on admission 106, A1c 5.9 -Pt home medications include: glipizide and metformin Plan: -Insulin sliding scale ordered -Hypoglycemia protocol ordered with acu-checks AC #Primary Hypertension #Hyperlipidemia -Pending med rec, pt is started on Amlodipine 10mg daily -Lipid panel WNL: Triglycerides 87, Cholesterol 159, LDL 78, HDL 64 #History of asthma ? DuoNebs as needed Health Maintenance: Disposition: Telemetry monitoring hyponatremia and s/p thoracenthesis Feeding: Carb consistent low with fluid restriction to 1200cc Thrombo prophylaxis: SCDs Gastric Ulcer prophylaxis: None CODE STATUS: Full code Assessment and plan discussed with my attending physician Dr. Oscar Caban (PGY-1)- Internal medicine resident Attending Provider Attestation/Addendum I have discussed and was present for the essential components of the history, physical examination, diagnosis, and treatment plan with the resident. I agree with the patient's care as documented by the resident and amended herein by me. Juliocesar Moore DO. Although this document has been carefully reviewed, there may still be some phonetic and other typographical errors. These errors are purely grammatical due to imperfections in the software program and should not be construed in any way to compromise the substance of the patient's medical care during this visit.
--- NOTE | 2025-04-10 15:19 | PC.SS ---
Rounding Note: OB consulting. Pelvic mass present.
[2025-04-10] MEDS: MELATONIN 3 MG TABLET PO (21:08)
[2025-04-11] VITALS (10 sets, daily range): BP systolic 121–149; BP diastolic 59–73; PULSE 73–88; RESP 17–96; TEMP 36.1–36.7; O2SAT 91–99; BMI 35.0; BMI 34.9
[2025-04-11 05:57] LABS: Basophils # (Auto) 0.1 Thou/mm3 (0.0-0.2); Basophils % (Auto) 1 % (0-2.5); Eosinophils # (Auto) 0.3 Thou/mm3 (0.0-0.5); Eosinophils % (Auto) 2 % (0-10); Hematocrit 32.3 % (36.0-46.0); Hemoglobin 11.3 g/dL (12.0-16.0); Immature Granulocytes % (Auto) 0 % (0-0); Immature Granulocytes Auto 0.05 Thou/mm3 (0.00-0.00); Lymphocytes # (Auto) 1.5 Thou/mm3 (1.0-4.8); Lymphocytes % (Auto) 13 % (10-50); Mean Corpuscular Hemoglobin 27.5 pg (25.0-35.0); Mean Corpuscular Volume 79 fL (80-100); Monocytes # (Auto) 0.9 Thou/mm3 (0.0-0.8); Monocytes % (Auto) 7 % (0-12); Neutrophils # (Auto) 9.5 Thou/mm3 (1.8-7.7); Neutrophils % (Auto) 77 % (37-80); Nucleated Red Blood Cell % 0 /100 WBC (0); Platelet Count 327 Thou/mm3 (140-440); RDW Standard Deviation 41.5 fL (36.4-46.3); Red Blood Count 4.11 Miln/mm3 (4.00-5.20); White Blood Count 12.3 Thou/mm3 (3.6-11.0)
[2025-04-11 06:37] LABS: Alanine Aminotransferase 9 U/L (10-49); Albumin, Serum 3.6 gm/dL (3.4-4.8); Albumin/Globulin Ratio 1.6 (1.2-2.2); Alkaline Phosphatase 205 U/L (46-116); Anion Gap 10 (7-16); Aspartate Amino Transferase 18 U/L (0-34); BUN/Creatinine Ratio 28 Ratio (12-20); Bilirubin,Total 0.3 mg/dL (0.3-1.2); Blood Urea Nitrogen 17 mg/dL (9-23); Calcium 8.9 mg/dL (8.3-10.6); Calcium (Corrected) 9.2 mg/dL (8.5-10.1); Carbon Dioxide 21.1 mMol/L (20.0-31.0); Chloride 98 mMol/L (98-107); Creatinine (Component) 0.6 mg/dL (0.6-1.3); Globulin 2.3 gm/dL (2.3-3.5); Glucose 174 mg/dL (74-106); Magnesium 1.5 mg/dL (1.6-2.6); Osmolality,Calculated 264 (275-295); Phosphorous 3.2 mg/dL (2.4-5.1); Potassium 4.7 mMol/L (3.4-5.1); Sodium 129 mMol/L (136-145); Total Protein 5.9 gm/dL (5.7-8.2); eGFR > 60 See Note
[2025-04-11] MEDS: INSULIN LISPRO (AdmeLOG) 1 UNIT/0.01 ML UNIT SC ×3 (07:50→17:49)
[2025-04-11] MEDS: Magnesium Sulfate 4 GM Ivpb 4 GM/50 ML BAG IV (08:44)
[2025-04-11] MEDS: Lisinopril 20 MG TABLET PO (08:45)
[2025-04-11] MEDS: amLODIPine BESYLATE 5 MG TABLET 10 MG PO (08:45)
--- NOTE | 2025-04-11 09:06 | PD.RESPRO ---
Documentation for date of: 04/11/25 Subjective Subjective Interval history: Ms. Royal is a Greenlandic only speaking, [id number]-year-old female with a past medical history of diabetes mellitus, hypertension, chronic hyponatremia/SIADH who presented to the ER complaining of generalized weakness and fatigue and abdominal distention. Patient reported that she started feeling weak, dizzy and short of breath but reported she can walk short distances without difficulty. The patient had recently seen her primary care physician for shortness of breath/bronchitis symptoms initially improved but then progressively became worse. Mental status stays at baseline. Nephrology was consulted for management of hyponatremia. Initial vitals in the ER, blood pressure 181/75, pulse 91/min, respiratory 16/min, Tmax 98.1, saturating 97% on room air. Initial labs on presentation showed serum sodium 120, potassium 5, carbon oxide 23, BUN 17 creatinine 0.6 glucose 217. Initial chest x-ray showed a large right-sided pleural effusion, The patient received right-sided thoracentesis, 1900 mL straw-colored fluid was removed, sent for pleural fluid analysis and cytology. Chest x-ray shows pneumonia right upper lobe and both bases, large right pleural effusion. CT abdomen and pelvis showed large right pleural effusion, atelectasis versus pneumonia, cirrhosis, 30 mm right lobe liver lesion, mild to moderate ascites, cholelithiasis, 15 to 10 cm pelvic mass extending to abdomen, differential includes neoplasm, pelvis ultrasound was done which showed large pedunculated vascular mass left uterine body, recommended MRI pelvis pre and postcontrast follow-up. 04/11/2025 patient evaluated bedside, noted facial puffiness but improvement in swelling, physical exam pertinent for right side wheezing and crackles patient is s/p thoracentesis yesterday, patient is n.p.o. and pending biopsy of pelvic mass. Recommend adding Lasix 20 mg x 1 for vascular congestion. Noted improvement in serum sodium, sodium 129, potassium 4.7, BUN 17, creatinine 0.7 Exam Vital Signs Temp Pulse Resp BP Pulse Ox O2 Del Method 98.0 F 80 17 124/70 97 Room Air 04/11/25 08:00 04/11/25 08:45 04/11/25 08:00 04/11/25 08:45 04/11/25 08:00 04/11/25 08:00 Narrative Exam General: AOx3, cooperative, Green[place]ic only speaker, noted facial/periorbital puffiness. Skin: Intact, no cyanosis or edema noted. HEENT: Atraumatic/normocephalic, DANA, neck supple Heart: RRR, S1 and S2 without clicks or murmurs Lungs: Basal rhonchi on auscultation, more on the right side. Abdomen: Abdomen is soft but does seem distended, positive ascites.. Vascular: Peripheral pulses palpable Neuro: No focal neurological deficits noted. Objective Labs 04/11/25 05:25 04/11/25 05:25 Labs: Laboratory Results - last 24 hr 04/11/25 05:25 WBC 12.3 H RBC 4.11 Hgb 11.3 L Hct 32.3 L MCV 79 L MCH 27.5 MCHC 35.0 RDW Std Deviation 41.5 Plt Count 327 Neut % (Auto) 77 Lymph % (Auto) 13 Hemphill % (Auto) 7 Eos % (Auto) 2 Baso % (Auto) 1 Neut # (Auto) 9.5 H Lymph # (Auto) 1.5 Hemphill # (Auto) 0.9 H Eos # (Auto) 0.3 Baso # (Auto) 0.1 Immature Gran # (Auto) 0.05 H Absolute Nucleated RBC 0.00 Immature Gran % 0 Nucleated RBC % 0 Sodium 129 L Potassium 4.7 Chloride 98 Carbon Dioxide 21.1 Anion Gap 10 BUN 17 Creatinine 0.6 Estim Creat Clear Calc 70.0 eGFR > 60 BUN/Creatinine Ratio 28 H Glucose 174 H Calculated Osmolality 264 L Calcium 8.9 Corrected Calcium 9.2 Phosphorus 3.2 Magnesium 1.5 L Total Bilirubin 0.3 AST 18 ALT 9 L Alkaline Phosphatase 205 H Total Protein 5.9 Albumin 3.6 Globulin 2.3 Albumin/Globulin Ratio 1.6 Quality Measures Quality Measures none Advance care planning discussed with:: patient Assessment & Plan Assessment Current Active Medications: Generic Name Dose Route Start Last Admin Trade Name Freq PRN Reason Stop Dose Admin Acetaminophen 650 mg 04/08/25 19:54 Acetaminophen 325 Mg Tablet PO 05/08/25 19:53 Q6H PRN Fever >100.4 Acetaminophen 325 mg 04/10/25 07:53 Acetaminophen 500 Mg Tablet PO 05/09/25 20:35 Q6H PRN PAIN SCALE 1-3 (mild Albuterol/Ipratropium 3 ml 04/08/25 20:06 04/09/25 23:55 Albuterol/Ipratropium (Duoneb) Rt Meseret 3 Ml Nebu INH 05/08/25 20:05 3 ml Q6HR PRN Administration SHORTNESS OF BREATH OR WHEEZE Amlodipine Besylate 10 mg 04/08/25 20:30 04/11/25 08:45 Amlodipine Besylate 5 Mg Tablet PO 05/08/25 20:29 10 mg QDAY JARETT Administration Dextrose 25 ml 04/08/25 20:04 Dextrose 50%-Water Inj 50 Ml Syringe IV 05/08/25 20:03 Q15MIN PRN BG 50-70 responsive npo pt Dextrose 50 ml 04/08/25 20:04 Dextrose 50%-Water Inj 50 Ml Syringe IV 05/08/25 20:03 Q15MIN PRN BG <50 OR BG <70 & pt unresponsive Glucagon 1 mg 04/08/25 20:04 Glucagon Inj 1 Mg Vial IM Q15MIN PRN BG <70, and no IV access Magnesium Sulfate 4 gm in 50 mls @ 12.5 mls/hr 04/11/25 07:32 04/11/25 08:44 Magnesium Sulfate Ivpb IV 04/11/25 11:31 12.5 mls/hr X1 ONE Administration Insulin Human Lispro 0 unit 04/11/25 07:21 04/11/25 07:50 Insulin Lispro (Admelog) 1 Unit/0.01 Ml Unit SC 05/09/25 07:29 2 unit AC JARETT Administration Protocol Labetalol HCl 10 mg 04/08/25 20:29 Labetalol Inj 5 Mg/Ml Vial 20 Ml IVP 05/08/25 20:28 Q6HR PRN SBP>185 Lisinopril 20 mg 04/09/25 09:00 04/11/25 08:45 Lisinopril 20 Mg Tablet PO 05/09/25 08:59 20 mg QDAY JARETT Administration Meclizine HCl 25 mg 04/08/25 20:23 Meclizine Hcl 25 Mg Tablet PO 05/08/25 20:59 BID PRN DIZZINESS Melatonin 3 mg 04/09/25 00:10 04/10/25 21:08 Melatonin 3 Mg Tablet PO 05/09/25 00:09 3 mg HS JARETT Administration Ondansetron HCl 4 mg 04/08/25 19:54 Ondansetron Inj 2 Mg/Ml Inj 2 Ml IVP 05/08/25 19:53 Q6H PRN NAUSEA OR VOMITING Protocol Plan (1) SIADH (syndrome of inappropriate ADH production): Status: Acute Assessment and plan: Nephrology is consulted for hyponatremia, patient has SIADH leading to chronic hyponatremia but additional factors contributing to low sodium including cirrhosis with ascites. Patient needs to be fluid restricted, currently intake record shows 2500 mL last 24 hours. Urine output 550 mL, net positive almost 2000 mL. Urine electrolytes showed urine sodium 72, urine potassium 45, urine chloride 87, consistent with SIADH. Of note patient has past medical history of hyponatremia and SIADH, was previously complicated by thiazide diuretic use during previous hospitalization, serum sodium dropped down to as low as 108 in October 2024. Thiazide diuretic continues to be withheld. Patient's mental status stays at baseline, no acute neurological deficit noted. ? Fluid restriction to 1200 cc daily with Strict input and output monitoring. ? Trend serum sodium on daily labs, ? Can consider salt tabs (2) Pleural effusion: Status: Acute Assessment and plan: S/p thoracentesis, pending cytology and pleural fluid analysis, exudative effusion based on lights criteria parapneumonic versus malignant effusion. X-ray reported as having right-sided pleural effusion, x-ray film from 04/08/25 does seem to be labeled incorrectly, flipped horizontally. ? Management per primary team (3) Pneumonia: Status: Acute Assessment and plan: Following resolution of pleural effusion, chest x-ray reported as positive for pneumonia ? Management per primary team (4) Cirrhosis: Status: Acute Assessment and plan: Noted to have cirrhosis with ascites in the setting of pelvic mass and right liver lobe lesion. ? Consider oncology consult and tumor markers. ? Recommend holding off on diuresis due to concurrent hyponatremia. ? Management per primary team (5) Pelvic mass in female: Status: Acute Assessment and plan: Uterine versus ovarian mass seen on CT and pelvic ultrasound. Pending MRI brain postcontrast for follow-up. ? Consider oncology consult and tumor markers. ? Management per primary team Plan of care discussed with Dr. Mili Connors PGY2 Attending Provider Attestation/Addendum Patient seen and examined with resident physician Dr. Connors. Note reviewed, agree with findings and recommendations. Renal consultation requested for hyponatremia. Patient seems to have underlying SIADH. Agree with the fluid restriction. Sodium started to improve. Will monitor sodium closely. Today seems to be having some fluid overload. Spoke to primary team-can do Lasix as needed.
[2025-04-11] MEDS: ALBUTEROL/IPRATROPIUM (Duoneb) RT SOL 3 ML NEBU INH ×2 (09:12→19:37)
--- NOTE | 2025-04-11 09:59 | ESCONSULT_ITS ---
ADULT LIVE IN CAREGIVER HPI Data of Consult Requesting Physician: Tanner Moore DO Primary Care Provider: Physician No Primary/Family Consult Narrative History of present illness: Lele is a 80yo F with PMhx significant for T2DM, HTN, hyperlipidemia, and chronic hyponatremia/SIADH who presented to the ER on 04/08 with generalized weakness, fatigue and abdominal distention. She was found to have severe hyponatremia and pleural effusion which lead to further imaging that ultimately showed a uterine mass. Initial CXR showed a large right-sided pleural effusion. Right-sided thoracentesis was performed with removal of 1900 mL straw-colored fluid which was sent for pleural fluid analysis and cytology. CT abdomen and pelvis showed large right pleural effusion, atalectasis versus pneumonia, cirrhosis, 13 mm right lobe liver lesion, mild to moderate ascites, cholelithiasis, 15 to 10 cm pelvic mass extending to abdomen, differential includes neoplasm. Pelvic ultrasound then showed large pedunculated vascular mass left uterine body 10.5x11.3x17.2cm. PMHx: As above Surgical Hx: None Social Hx: Denies tobacco use, denies alcohol use, denies illicit substances including THC Family Hx: Unknown cc:: cc: Tanner Moore DO Review of Systems Review of Systems Narrative Review of Systems: Denies any vaginal bleeding. Has had occasions of scant spotting after urination on occasion for the past few years, but never overt bleeding Meds Home Medications and Allergies Home Medications ?Medication ?Instructions ?Recorded ?Confirmed ?Type meclizine 25 mg chewable tablet 25 mg PO BID PRN Dizzi ness 10/22/24 04/09/25 History metformin 1,000 mg tablet 1,000 mg PO QDAY 10/22/24 History sennosides 8.6 mg-docusate sodium 1 tab-cap PO BID PRN Constipation 10/22/24 04/09/25 History 50 mg tablet (Senna Plus) atorvastatin 20 mg tablet 20 mg PO HS 04/09/25 5 History Allergies Allergy/AdvReac Type Severity Reaction Status Date / Time No Known Allergies Allergy Verified 04/08/25 13:39 Exam - ADULT LIVE IN CAREGIVER Vital Signs Temp Pulse Resp BP Pulse Ox O2 Del Method 98.0 F 81 19 124/70 99 Room Air 04/11/25 08:00 04/11/25 09:15 04/11/25 09:15 04/11/25 08:45 04/11/25 09:15 04/11/25 08:00 Narrative Exam General: well developed, well nourished, no acute distress Cardiac: normal heart rate Lungs: breathing without distress Abdomen: distended, soft, non-tender, no rebound or guarding Extremities: no edema of BLE ADULT LIVE IN CAREGIVER - Results Labs 04/11/25 05:25 04/11/25 05:25 Labs: Short CBC 04/11/25 Range/Units 05:25 WBC 12.3 H (3.6-11.0) Thou/mm3 Hgb 11.3 L (12.0-16.0) g/dL Hct 32.3 L (36.0-46.0) % Plt Count 327 (140-440) Thou/mm3 BMP 04/11/25 05:25 Sodium 129 L Potassium 4.7 Chloride 98 Carbon Dioxide 21.1 BUN 17 Creatinine 0.6 Glucose 174 H Calcium 8.9 Liver Function 04/11/25 Range/Units 05:25 Total Bilirubin 0.3 (0.3-1.2) mg/dL AST 18 (0-34) U/L ALT 9 L (10-49) U/L Alkaline Phosphatase 205 H (46-116) U/L Albumin 3.6 (3.4-4.8) gm/dL Impressions Impression: Examination: Pelvic ultrasound, transabdominal, complete Technique: Transabdominal ultrasound of the pelvis performed using grayscale imaging Date and time of exam: April 09, 2025 1629 hours INDICATIONS: 15 x 11 x 10 cm pelvic mass extending into the abdomen on CT examination April 08, 2025 FINDINGS: Uterus 11.1 cm, large pedunculated vascular mass arising from the uterine body 10.5 x 11.3 x 17.2 cm Ovaries obscured by bowel gas Free fluid in the adnexal region IMPRESSION: Large pedunculated vascular mass left uterine body 10.5 x 11.3 x 17.2 cm, differential would include malignant neoplasm of the uterus Recommend MRI pelvis follow-up pre and postcontrast Examination: CT abdomen and pelvis without contrast. Coronal 3-D reconstructions. Sagittal 2-D reconstructions. Date and time of exam:April 08, 2025 2015 hours INDICATIONS: Shortness of breath 8 days with abdominal pain CTDI: vol (mGy): 9.66 DLP: (mGycm): 526 Technique: Axial images of the abdomen have been obtained, 3 mm slice thickness Intravenous contrast material has not been administered. Low dose protocols were performed. One or more of the following dose reduction techniques were used; automated exposure control, adjustment of the mA and/or KV according to patient size, use of iterative reconstruction technique. Findings: Large right pleural effusion Atelectasis versus pneumonia right base Cirrhosis 13 mm lateral right lobe liver lesion Mild to moderate ascites Gallstones Spleen not enlarged No pancreatic mass No hydronephrosis Aorta normal size Large pelvic mass extending into the lower abdomen, transverse dimension 15 cm cephalocaudad dimension 11 cm in AP dimension 10 cm Calcified mass contiguous with the posterior margin of the uterus 4 cm Contracted urinary bladder IMPRESSION: Large right pleural effusion Atelectasis versus pneumonia right base Cirrhosis 13 mm right lobe liver lesion, recommend elective MRI abdomen liver follow up pre and postcontrast [id number] ascites Cholelithiasis 15 x 11 x 10 cm pelvic mass extending into the abdomen, differential would include ovarian neoplasm, recommend pelvic sonography follow-up Assessment and Plan Assessment and plan (1) Uterine mass: Status: Acute Assessment and plan: Lele is a 80yo F with PMhx significant for T2DM, HTN, hyperlipidemia, and chronic hyponatremia/SIADH with large vascular uterine mass, pleural effusion, ascites and liver lesion concerning for metastatic leiomyosarcoma. Plan: -Await cytology results from thoracentesis sampling. If no definitive cytology result is obtained, would recommend paracentesis for cytology. -If metastatic leiomyosarcoma is confirmed, patient should be transferred to a hospital that has Gynecology-Oncology (ADULT LIVE IN CAREGIVER-ONC) on site -I spoke with Lele's family regarding my concern for cancer diagnosis and the need for definitive diagnosis based on cytology to formulate next steps. Answered all questions to their apparent satisfaction. Antonella Jay MD (2) Pleural effusion: Status: Acute (3) Hyponatremia: Status: Acute
--- NOTE | 2025-04-11 11:43 | PC.CM ---
Addendum entered by Linette Armijo RN 04/11/25 20:03: Patient declined by [facility] and [facility] due to capacity. [facility] declined due to not having senior qa tester/onc services. I started packet. I will be in tomorrow so I will continue working on tranfer. Addendum entered by Linette Armijo RN 04/11/25 13:49: 1210 I called and initiated transfer with [facility] in [place]. Madeline stated they they do have senior qa tester/onc on services but he is at capacity for today. She states I can call back tomorrow if I do not have any accepting facilites today Addendum entered by Linette Armijo RN 04/11/25 13:02: 1145 [facility] called be back and they do not have senior qa tester/onc services. They stated I should try [facility]. Addendum entered by Linette Armijo RN 04/11/25 12:59: 1130 I initiated a transfer with [facility]. I faxed over information. Addendum entered by Linette Armijo RN 04/11/25 11:48: 1100 I spoke to Genoveva at [facility] and she states they reviewed paperwork but they are going to have to decline due to capacity. She states we can try back tomorrow if we do not find an accepting facility. Addendum entered by Linette Armijo RN 04/11/25 11:47: 1020 I faxed over information to [facility] and I made a transfer packet. Original Note: [id number] I received a referral to transfer patient for josie/onc for pelvic mass. Dr. Moore is the attending MD. I will start packet.
--- NOTE | 2025-04-11 13:15 | PC.SS ---
Update: OB consulting, possible transfer.
--- NOTE | 2025-04-11 18:27 | PD.RESPRO ---
Documentation for date of: 04/11/25 Subjective Subjective Interval history: No acute overnight events reported. Patient is seen and examined at bedside this morning. Patient endorses to significant improvement in her breathing. Patient states that she was unable to sleep last night with the melatonin because of increased anxiety around her new diagnosis. Therefore requested and if she could have something that can help her with her anxiety and sleep at night. Patient is explained with family at bedside and informed of preliminary cytology report of the pleural fluid growing malignant cells. Also informed the family regarding my conversation with the chlorobutadiene scrubber operator about high probability of metastatic leiomyosarcoma. Patient and family is agreeable with the transfer for [facility]ILLER-Onc. Vitals are stable with blood pressure 128/59, labs are reviewed, sodium has improved to 129 with the fluid restriction. Will continue to monitor daily labs and continue with the transfer process. Exam Vital Signs Temp Pulse Resp BP Pulse Ox O2 Del Method 97.8 F 84 19 122/61 96 Room Air 04/11/25 16:00 04/11/25 16:00 04/11/25 16:00 04/11/25 16:00 04/11/25 16:04/11/25 16:00 Narrative Exam GENERAL: A&Ox3, elderly female, appears stated age, cooperative Awake, Not in acute distress NEURO: no focal neurological deficits noted HEENT: Atraumatic, Normocephalic. mucous membranes moist. Eyes open, symmetrical, & clear HEART: Normal Heart Sounds LUNGS: mild wheezing heard on auscultation bilaterally ABDOMEN: soft, distended, non-tender, bowel sounds heard, no guarding or rebound tenderness SKIN: No Rash or ecchymoses EXTREMITIES: No edema, tenderness, able to move all 4 extremities, pedal pulses palpated Objective Labs 04/12/25 04:53 04/12/25 04:53 Labs: Laboratory Results - last 24 hr 04/11/25 05:25 WBC 12.3 H RBC 4.11 Hgb 11.3 L Hct 32.3 L MCV 79 L MCH 27.5 MCHC 35.0 RDW Std Deviation 41.5 Plt Count 327 Neut % (Auto) 77 Lymph % (Auto) 13 [place] % (Auto) 7 Eos % (Auto) 2 Baso % (Auto) 1 Neut # (Auto) 9.5 H Lymph # (Auto) 1.5 [place] # (Auto) 0.9 H Eos # (Auto) 0.3 Baso # (Auto) 0.1 Immature Gran # (Auto) 0.05 H Absolute Nucleated RBC 0.00 Immature Gran % 0 Nucleated RBC % 0 Sodium 129 L Potassium 4.7 Chloride 98 Carbon Dioxide 21.1 Anion Gap 10 BUN 17 Creatinine 0.6 Estim Creat Clear Calc 70.0 eGFR > 60 BUN/Creatinine Ratio 28 H Glucose 174 H Calculated Osmolality 264 L Calcium 8.9 Corrected Calcium 9.2 Phosphorus 3.2 Magnesium 1.5 L Total Bilirubin 0.3 AST 18 ALT 9 L Alkaline Phosphatase 205 H Total Protein 5.9 Albumin 3.6 Globulin 2.3 Albumin/Globulin Ratio 1.6 Quality Measures Quality Measures none Advance care planning discussed with:: patient Assessment & Plan Assessment Current Active Medications: Generic Name Dose Route Start Last Admin Trade Name Freq PRN Reason Stop Dose Admin Acetaminophen 650 mg 04/08/25 19:54 Acetaminophen 325 Mg Tablet PO 05/08/25 19:53 Q6H PRN Fever >100.4 Acetaminophen 325 mg 04/10/25 07:53 Acetaminophen 500 Mg Tablet PO 05/09/25 20:35 Q6H PRN PAIN SCALE 1-3 (mild Albuterol/Ipratropium 3 ml 04/08/25 20:06 04/11/25 09:12 Albuterol/Ipratropium (Duoneb) Rt Meseret 3 Ml Nebu INH 05/08/25 20:05 3 ml Q6HR PRN Administration SHORTNESS OF BREATH OR WHEEZE Amlodipine Besylate 10 mg 04/08/25 20:30 04/11/25 08:45 Amlodipine Besylate 5 Mg Tablet PO 05/08/25 20:29 10 mg QDAY JARETT Administration Dextrose 25 ml 04/08/25 20:04 Dextrose 50%-Water Inj 50 Ml Syringe IV 05/08/25 20:03 Q15MIN PRN BG 50-70 responsive npo pt Dextrose 50 ml 04/08/25 20:04 Dextrose 50%-Water Inj 50 Ml Syringe IV 05/08/25 20:03 Q15MIN PRN BG <50 OR BG <70 & pt unresponsive Glucagon 1 mg 04/08/25 20:04 Glucagon Inj 1 Mg Vial IM Q15MIN PRN BG <70, and no IV access Insulin Human Lispro 0 unit 04/11/25 07:21 04/11/25 17:49 Insulin Lispro (Admelog) 1 Unit/0.01 Ml Unit SC 05/09/25 07:29 2 unit AC JARETT Administration Protocol Labetalol HCl 10 mg 04/08/25 20:29 Labetalol Inj 5 Mg/Ml Vial 20 Ml IVP 05/08/25 20:28 Q6HR PRN SBP>185 Lisinopril 20 mg 04/09/25 09:00 04/11/25 08:45 Lisinopril 20 Mg Tablet PO 05/09/25 08:59 20 mg QDAY JARETT Administration Lorazepam 1 mg 04/11/25 17:10 Lorazepam 0.5 Mg Tablet PO 04/16/25 17:09 HS PRN ANXIETY Meclizine HCl 25 mg 04/08/25 20:23 Meclizine Hcl 25 Mg Tablet PO 05/08/25 20:59 BID PRN DIZZINESS Melatonin 3 mg 04/09/25 00:10 04/10/25 21:08 Melatonin 3 Mg Tablet PO 05/09/25 00:09 3 mg HS JARETT Administration Ondansetron HCl 4 mg 04/08/25 19:54 Ondansetron Inj 2 Mg/Ml Inj 2 Ml IVP 05/08/25 19:53 Q6H PRN NAUSEA OR VOMITING Protocol Plan Mr. De Guzman is a 80-year-old female with past medical history of diabetes, hypertension, hyperlipidemia, asthma who presented to the ED due to generalized weakness. Admitted for management of hyponatremia. #Abnormal Uterine and vaginal bleeding, unspecified #Pelvic mass DDX: Highest differential is metastatic leiomyosarcoma CT abdomen/pelvis: showed 15 x 11 x 10 cm pelvic mass extending into the abdomen. Pt states she is aware of the mass but cannot recall who told her and the details around it Patient endorses to vaginal spotting which she contributed to a UTI because every time she noticed and her primary care had given her a course of antibiotics for UTI and the bleeding went away. Pelvis US: Large pedunculated vascular mass left uterine body 10.5 x 11.3 x 17.2 cm Plan: -consult HANDLE SEWER, appreciate recommendations -Transfer initiated for Gyne-Onc #Euvolemic Hypoosmolar Hyponatremia #Chronic hyponatremia Likely in the setting due to poor oral intake vs diuretic use (pt was taking combination pill of lisinopril-hydrochlorothiazide) Patient presented with 3 days of generalized weakness having dizziness and decreased PO intake for more than 2 months, patient also takes lisinopril-HCTZ Patient has had previous admissions for severe hyponatremia On admission sodium 120- corrected to 126 in first 24 hours (Hypertonic saline 500 mL x 1 in was given on admission and was discontinued to avoid over correction) Plan: -Will continue to monitor daily CMP -Fluid restriction to 1200cc daily -Strict ins and outs -Urine electrolytes WNL -Nephrology consulted, appreciate recommendations #Right-sided pleural effusion, s/p thoracentesis CXR: show large right pleural effusions -s/p thoracenthesis on 04/09- removed 1.9L fluid -Pleural fluid analysis is consistent with exudative pleural effusions DDx: low suspicion of pneumonia as pt denies sick contacts, recent illness, cough, fever and leukocyte count. Malignancy is of high suspicion as pt has a pelvic mass seen on imaging and endorses to vaginal spotting -Echo ordered- EF 75%, grade 1 diastolic disfunction Plan: -Cell cytology of the pleural fluid preliminary reports malignant cells #Cirrhosis #Liver lesion #Ascites -CT abdomen/Pelvis: shows cirrhosis, 13mm right lobe liver lesions and mild to moderate ascites -Pt is not in decompensation state: no coagulaopathy, AST, ALT and T. nory WNL -No abdominal tenderness Plan: -Pt will need outpatient follow up with risk consulting treasury director #Non-Insulin dependent type 2 Diabetes -Blood glucose on admission 106, A1c 5.9 -Pt home medications include: glipizide and metformin Plan: -Insulin sliding scale ordered -Hypoglycemia protocol ordered with acu-checks AC #Primary Hypertension #Hyperlipidemia -Pt is started on Amlodipine 10mg daily and resumed home lisinopril -Lipid panel WNL: Triglycerides 87, Cholesterol 159, LDL 78, HDL 64 #History of asthma ? DuoNebs as needed Health Maintenance: Disposition: Telemetry monitoring hyponatremia and s/p thoracenthesis , pending transfer for Gyne-oncology Diet: Carb consistent low with fluid restriction to 1200cc DVT prophylaxis: SCDs Gastric Ulcer prophylaxis: None CODE STATUS: Full code Assessment and plan discussed with my attending physician Dr. Oscar Caban (PGY-1)- Internal medicine resident Attending Provider Attestation/Addendum I have discussed and was present for the essential components of the history, physical examination, diagnosis, and treatment plan with the resident. I agree with the patient's care as documented by the resident and amended herein by me. Juliocesar Moore DO. Although this document has been carefully reviewed, there may still be some phonetic and other typographical errors. These errors are purely grammatical due to imperfections in the software program and should not be construed in any way to compromise the substance of the patient's medical care during this visit.
[2025-04-11] MEDS: SENNA/DOCUSATE SOD 1 TAB TABLET PO (19:32)
[2025-04-11] MEDS: MELATONIN 3 MG TABLET PO (20:14)
[2025-04-12] VITALS (13 sets, daily range): BP systolic 120–145; BP diastolic 57–81; PULSE 77–105; RESP 16–97; TEMP 36.2–36.9; O2SAT 94–99; BMI 33.6
[2025-04-12] MEDS: ALBUTEROL/IPRATROPIUM (Duoneb) RT SOL 3 ML NEBU INH ×2 (01:39→18:45)
[2025-04-12 05:33] LABS: Basophils # (Auto) 0.1 Thou/mm3 (0.0-0.2); Basophils % (Auto) 0 % (0-2.5); Eosinophils # (Auto) 0.2 Thou/mm3 (0.0-0.5); Eosinophils % (Auto) 1 % (0-10); Hematocrit 29.9 % (36.0-46.0); Hemoglobin 10.2 g/dL (12.0-16.0); Immature Granulocytes % (Auto) 1 % (0-0); Immature Granulocytes Auto 0.06 Thou/mm3 (0.00-0.00); Lymphocytes # (Auto) 1.5 Thou/mm3 (1.0-4.8); Lymphocytes % (Auto) 12 % (10-50); Mean Corpuscular HGB Conc 34.1 g/dl (31.0-37.0); Mean Corpuscular Hemoglobin 27.3 pg (25.0-35.0); Mean Corpuscular Volume 80 fL (80-100); Monocytes # (Auto) 0.9 Thou/mm3 (0.0-0.8); Monocytes % (Auto) 7 % (0-12); Neutrophils # (Auto) 9.5 Thou/mm3 (1.8-7.7); Neutrophils % (Auto) 78 % (37-80); Nucleated Red Blood Cell % 0 /100 WBC (0); Platelet Count 344 Thou/mm3 (140-440); RDW Standard Deviation 42.6 fL (36.4-46.3); Red Blood Count 3.74 Miln/mm3 (4.00-5.20); White Blood Count 12.1 Thou/mm3 (3.6-11.0)
[2025-04-12 05:54] LABS: Albumin, Serum 3.4 gm/dL (3.4-4.8); Anion Gap 8 (7-16); BUN/Creatinine Ratio 42 Ratio (12-20); Blood Urea Nitrogen 25 mg/dL (9-23); Calcium 8.6 mg/dL (8.3-10.6); Calcium (Corrected) 9.1 mg/dL (8.5-10.1); Carbon Dioxide 22.9 mMol/L (20.0-31.0); Chloride 99 mMol/L (98-107); Creatinine (Component) 0.6 mg/dL (0.6-1.3); Glucose 180 mg/dL (74-106); Osmolality,Calculated 270 (275-295); Potassium 4.6 mMol/L (3.4-5.1); Sodium 130 mMol/L (136-145); eGFR > 60 See Note
--- NOTE | 2025-04-12 07:30 | ESPR_ITS ---
Documentation for date of: 04/12/25 Subjective Subjective Interval history: Ms. Royal is a [place] only speaking, [id number]-year-old female with a past medical history of diabetes mellitus, hypertension, chronic hyponatremia/SIADH who presented to the ER complaining of generalized weakness and fatigue and abdominal distention. Patient reported that she started feeling weak, dizzy and short of breath but reported she can walk short distances without difficulty. The patient had recently seen her primary care physician for shortness of breath/bronchitis symptoms initially improved but then progressively became worse. Mental status stays at baseline. Nephrology was consulted for management of hyponatremia. Initial vitals in the ER, blood pressure 181/75, pulse 91/min, respiratory 16/min, Tmax 98.1, saturating 97% on room air. Initial labs on presentation showed serum sodium 120, potassium 5, carbon oxide 23, BUN 17 creatinine 0.6 glucose 217. Initial chest x-ray showed a large right-sided pleural effusion, The patient received right-sided thoracentesis, 1900 mL straw-colored fluid was removed, sent for pleural fluid analysis and cytology. Chest x-ray shows pneumonia right upper lobe and both bases, large right pleural effusion. CT abdomen and pelvis showed large right pleural effusion, atelectasis versus pneumonia, cirrhosis, 30 mm right lobe liver lesion, mild to moderate ascites, cholelithiasis, 15 to 10 cm pelvic mass extending to abdomen, differential includes neoplasm, pelvis ultrasound was done which showed large pedunculated vascular mass left uterine body, recommended MRI pelvis pre and postcontrast follow-up. 04/11/2025 patient evaluated bedside, noted facial puffiness but improvement in swelling, physical exam pertinent for right side wheezing and crackles patient is s/p thoracentesis yesterday, patient is n.p.o. and pending biopsy of pelvic mass. Recommend adding Lasix 20 mg x 1 for vascular congestion. 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 Serum sodium improved to 130. Continue with fluid restriction and strict intake and output. Renal function stays normal. Nephrology will sign off at this point. Exam Vital Signs Temp Pulse Resp BP Pulse Ox O2 Del Method 98.3 F 81 20 132/57 H 94 L Room Air 04/12/25 04:00 04/12/25 04:00 04/12/25 04:00 04/12/25 04:00 04/12/25 04:00 04/12/25 04:00 Narrative Exam General: AOx3, cooperative, [place] only speaker, noted facial/periorbital puffiness. Skin: Intact, no cyanosis or edema noted. HEENT: Atraumatic/normocephalic, DANA, neck supple Heart: RRR, S1 and S2 without clicks or murmurs Lungs: Pleural rub, basal rhonchi on auscultation, more on the right side. Abdomen: Abdomen is soft but does seem distended, positive ascites.. Vascular: Peripheral pulses palpable Neuro: No focal neurological deficits noted. Objective Labs 04/13/25 10:00 04/13/25 10:00 Labs: Laboratory Results - last 24 hr 04/12/25 04:53 WBC 12.1 H RBC 3.74 L Hgb 10.2 L Hct 29.9 L MCV 80 MCH 27.3 MCHC 34.1 RDW Std Deviation 42.6 Plt Count 344 Neut % (Auto) 78 Lymph % (Auto) 12 [place] % (Auto) 7 Eos % (Auto) 1 Baso % (Auto) 0 Neut # (Auto) 9.5 H Lymph # (Auto) 1.5 [place] # (Auto) 0.9 H Eos # (Auto) 0.2 Baso # (Auto) 0.1 Immature Gran # (Auto) 0.06 H Absolute Nucleated RBC 0.00 Immature Gran % 1 H Nucleated RBC % 0 Sodium 130 L Potassium 4.6 Chloride 99 Carbon Dioxide 22.9 Anion Gap 8 BUN 25 H Creatinine 0.6 Estim Creat Clear Calc 70.0 eGFR > 60 BUN/Creatinine Ratio 42 H Glucose 180 H Calculated Osmolality 270 L Calcium 8.6 Corrected Calcium 9.1 Phosphorus 4.0 Albumin 3.4 Quality Measures Quality Measures none Advance care planning discussed with:: patient Assessment & Plan Assessment Current Active Medications: Generic Name Dose Route Start Last Admin Trade Name Freq PRN Reason Stop Dose Admin Acetaminophen 650 mg 04/08/25 19:54 Acetaminophen 325 Mg Tablet PO 05/08/25 19:53 Q6H PRN Fever >100.4 Acetaminophen 325 mg 04/10/25 07:53 Acetaminophen 500 Mg Tablet PO 05/09/25 20:35 Q6H PRN PAIN SCALE 1-3 (mild Albuterol/Ipratropium 3 ml 04/08/25 20:06 04/12/25 01:39 Albuterol/Ipratropium (Duoneb) Rt Meseret 3 Ml Nebu INH 05/08/25 20:05 3 ml Q6HR PRN Administration SHORTNESS OF BREATH OR WHEEZE Amlodipine Besylate 10 mg 04/08/25 20:30 04/11/25 08:45 Amlodipine Besylate 5 Mg Tablet PO 05/08/25 20:29 10 mg QDAY JARETT Administration Dextrose 25 ml 04/08/25 20:04 Dextrose 50%-Water Inj 50 Ml Syringe IV 05/08/25 20:03 Q15MIN PRN BG 50-70 responsive npo pt Dextrose 50 ml 04/08/25 20:04 Dextrose 50%-Water Inj 50 Ml Syringe IV 05/08/25 20:03 Q15MIN PRN BG <50 OR BG <70 & pt unresponsive Glucagon 1 mg 04/08/25 20:04 Glucagon Inj 1 Mg Vial IM Q15MIN PRN BG <70, and no IV access Insulin Human Lispro 0 unit 04/11/25 07:21 04/11/25 17:49 Insulin Lispro (Admelog) 1 Unit/0.01 Ml Unit SC 05/09/25 07:29 2 unit AC JARETT Administration Protocol Labetalol HCl 10 mg 04/08/25 20:29 Labetalol Inj 5 Mg/Ml Vial 20 Ml IVP 05/08/25 20:28 Q6HR PRN SBP>185 Lisinopril 20 mg 04/09/25 09:00 04/11/25 08:45 Lisinopril 20 Mg Tablet PO 05/09/25 08:59 20 mg QDAY JARETT Administration Lorazepam 1 mg 04/11/25 17:10 Lorazepam 0.5 Mg Tablet PO 04/16/25 17:09 HS PRN ANXIETY Meclizine HCl 25 mg 04/08/25 20:23 Meclizine Hcl 25 Mg Tablet PO 05/08/25 20:59 BID PRN DIZZINESS Ondansetron HCl 4 mg 04/08/25 19:54 Ondansetron Inj 2 Mg/Ml Inj 2 Ml IVP 05/08/25 19:53 Q6H PRN NAUSEA OR VOMITING Protocol Sennosides 1 tab 04/11/25 18:45 04/11/25 19:32 Senna/Docusate Sod 1 Tab Tablet PO 05/11/25 18:44 1 tab QDAY JARETT Administration Protocol Plan (1) SIADH (syndrome of inappropriate ADH production): Status: Acute Assessment and plan: Nephrology is consulted for hyponatremia, patient has SIADH leading to chronic hyponatremia but additional factors contributing to low sodium including cirrhosis with ascites. Patient needs to be fluid restricted, currently intake record shows 2500 mL last 24 hours. Urine output 550 mL, net positive almost 2000 mL. Urine electrolytes showed urine sodium 72, urine potassium 45, urine chloride 87, consistent with SIADH. Of note patient has past medical history of hyponatremia and SIADH, was previously complicated by thiazide diuretic use during previous hospitalization, serum sodium dropped down to as low as 108 in October 2024. Thiazide diuretic continues to be withheld. Patient's mental status stays at baseline, no acute neurological deficit noted. ? Fluid restriction to 1200 cc daily with Strict input and output monitoring. ? Trend serum sodium on daily labs, ? Can consider salt tabs ? Nephrology will sign off at this point, serum sodium increased to 130, no impairment of renal function. (2) Pleural effusion: Status: Acute Assessment and plan: S/p thoracentesis, pending cytology and pleural fluid analysis, exudative effusion based on lights criteria parapneumonic versus malignant effusion. X- ray reported as having right-sided pleural effusion, x-ray film from 04/08/25 does seem to be labeled incorrectly, flipped horizontally. ? Management per primary team (3) Pneumonia: Status: Acute Assessment and plan: Following resolution of pleural effusion, chest x-ray reported as positive for pneumonia ? Management per primary team (4) Cirrhosis: Status: Acute Assessment and plan: Noted to have cirrhosis with ascites in the setting of pelvic mass and right liver lobe lesion. ? Consider oncology consult and tumor markers. ? Recommend holding off on diuresis due to concurrent hyponatremia. ? Management per primary team (5) Pelvic mass in female: Status: Acute Assessment and plan: Uterine versus ovarian mass seen on CT and pelvic ultrasound. Pending MRI brain postcontrast for follow-up. ? Consider oncology consult and tumor markers. ? Management per primary team Plan of care discussed with Dr. Mili Connors PGY2 Attending Provider Attestation/Addendum Patient seen and examined with resident physician Dr. Connors. Note reviewed, agree with findings and recommendations. Renal consultation requested for hyponatremia. Patient seems to have underlying SIADH. Agree with the fluid restriction. Sodium started to improve. Will monitor sodium closely. Today seems to be having some fluid overload. Spoke to primary team-can do Lasix as needed.
[2025-04-12] MEDS: INSULIN LISPRO (AdmeLOG) 1 UNIT/0.01 ML UNIT SC ×3 (07:38→16:45)
[2025-04-12 07:55] LABS: Magnesium 1.6 mg/dL (1.6-2.6)
[2025-04-12] MEDS: amLODIPine BESYLATE 5 MG TABLET 10 MG PO (08:17)
[2025-04-12] MEDS: Lisinopril 20 MG TABLET PO (08:18)
[2025-04-12] MEDS: SENNA/DOCUSATE SOD 1 TAB TABLET PO (08:18)
--- NOTE | 2025-04-12 12:04 | PC.CM ---
Addendum entered by Linette Armijo RN 04/12/25 14:00: 1245 I received a call back from Claudia at [facility] and they are reviewing patient at this time. she verified she received all my paperwork from earlier. Original Note: 09 I called [facility] to verify they still have senior drafter/onc services. I spoke to Claudia and I presented patient . She asked that I fax over information. Information faxed at this time.
--- NOTE | 2025-04-12 14:12 | PC.PT ---
PT eval only. Patient is safe to ambulate to the bathroom and in the halls with 1 person (either family or staff) and no AD. RN made aware.
--- NOTE | 2025-04-12 14:28 | PC.SS ---
Rounding note: patient is pending HLOC transfer for OB services.
--- NOTE | 2025-04-12 15:45 | PD.RESPRO ---
Documentation for date of: 04/12/25 Subjective Subjective Interval history: No acute overnight events reported. Patient seen and examined at bedside this morning. Patient is complaining of some shortness of breath. Bedside ultrasound to evaluate pleural fluid did not show enough fluid to tap. After ambulation with physical therapy patient endorses to feeling significant better. Patient does complain of increased anxiety and restlessness regarding her diagnoses. Patient is pending transfer approval for PHOTOGRAPHIC INTELLIGENCE OFFICER oncologist as the cytology of pleural fluid has confirmed malignant cells. Vitals are stable, patient is saturating on room air. Labs are reviewed WBC as 12.1, hemoglobin 10.2, hematocrit 29.9, sodium 130 and blood glucose 180. Pt has no other complaints. Exam Vital Signs Temp Pulse Resp BP Pulse Ox O2 Del Method 97.2 F 84 20 145/61 H 96 Room Air 04/12/25 12:00 04/12/25 13:13 04/12/25 13:13 04/12/25 12:00 04/12/25 13:13 04/12/25 12:00 Narrative Exam GENERAL: A&Ox3, elderly female, appears stated age, cooperative Awake, Not in acute distress NEURO: no focal neurological deficits noted HEENT: Atraumatic, Normocephalic. mucous membranes moist. Eyes open, symmetrical, & clear HEART: Normal Heart Sounds LUNGS: mild wheezing heard on auscultation bilaterally ABDOMEN: soft, distended, non-tender, bowel sounds heard, no guarding or rebound tenderness SKIN: No Rash or ecchymoses EXTREMITIES: No edema, tenderness, able to move all 4 extremities, pedal pulses palpated Objective Labs 04/12/25 04:53 04/12/25 04:53 Labs: Laboratory Results - last 24 hr 04/12/25 04:53 WBC 12.1 H RBC 3.74 L Hgb 10.2 L Hct 29.9 L MCV 80 MCH 27.3 MCHC 34.1 RDW Std Deviation 42.6 Plt Count 344 Neut % (Auto) 78 Lymph % (Auto) 12 [place] % (Auto) 7 Eos % (Auto) 1 Baso % (Auto) 0 Neut # (Auto) 9.5 H Lymph # (Auto) 1.5 [place] # (Auto) 0.9 H Eos # (Auto) 0.2 Baso # (Auto) 0.1 Immature Gran # (Auto) 0.06 H Absolute Nucleated RBC 0.00 Immature Gran % 1 H Nucleated RBC % 0 Sodium 130 L Potassium 4.6 Chloride 99 Carbon Dioxide 22.9 Anion Gap 8 BUN 25 H Creatinine 0.6 Estim Creat Clear Calc 70.0 eGFR > 60 BUN/Creatinine Ratio 42 H Glucose 180 H Calculated Osmolality 270 L Calcium 8.6 Corrected Calcium 9.1 Phosphorus 4.0 Magnesium 1.6 Albumin 3.4 Quality Measures Quality Measures none Advance care planning discussed with:: patient and child Assessment & Plan Assessment Current Active Medications: Generic Name Dose Route Start Last Admin Trade Name Freq PRN Reason Stop Dose Admin Acetaminophen 650 mg 04/08/25 19:54 Acetaminophen 325 Mg Tablet PO 05/08/25 19:53 Q6H PRN Fever >100.4 Acetaminophen 325 mg 04/10/25 07:53 Acetaminophen 500 Mg Tablet PO 05/09/25 20:35 Q6H PRN PAIN SCALE 1-3 (mild Albuterol/Ipratropium 3 ml 04/08/25 20:06 04/12/25 01:39 Albuterol/Ipratropium (Duoneb) Rt Meseret 3 Ml Nebu INH 05/08/25 20:05 3 ml Q6HR PRN Administration SHORTNESS OF BREATH OR WHEEZE Amlodipine Besylate 10 mg 04/08/25 20:30 04/12/25 08:17 Amlodipine Besylate 5 Mg Tablet PO 05/08/25 20:29 10 mg QDAY JARETT Administration Dextrose 25 ml 04/08/25 20:04 Dextrose 50%-Water Inj 50 Ml Syringe IV 05/08/25 20:03 Q15MIN PRN BG 50-70 responsive npo pt Dextrose 50 ml 04/08/25 20:04 Dextrose 50%-Water Inj 50 Ml Syringe IV 05/08/25 20:03 Q15MIN PRN BG <50 OR BG <70 & pt unresponsive Glucagon 1 mg 04/08/25 20:04 Glucagon Inj 1 Mg Vial IM Q15MIN PRN BG <70, and no IV access Insulin Human Lispro 0 unit 04/11/25 07:21 04/12/25 12:12 Insulin Lispro (Admelog) 1 Unit/0.01 Ml Unit SC 05/09/25 07:29 3 unit AC JARETT Administration Protocol Labetalol HCl 10 mg 04/08/25 20:29 Labetalol Inj 5 Mg/Ml Vial 20 Ml IVP 05/08/25 20:28 Q6HR PRN SBP>185 Lisinopril 20 mg 04/09/25 09:00 04/12/25 08:18 Lisinopril 20 Mg Tablet PO 05/09/25 08:59 20 mg QDAY JARETT Administration Lorazepam 1 mg 04/11/25 17:10 Lorazepam 0.5 Mg Tablet PO 04/16/25 17:09 HS PRN ANXIETY Meclizine HCl 25 mg 04/08/25 20:23 Meclizine Hcl 25 Mg Tablet PO 05/08/25 20:59 BID PRN DIZZINESS Ondansetron HCl 4 mg 04/08/25 19:54 Ondansetron Inj 2 Mg/Ml Inj 2 Ml IVP 05/08/25 19:53 Q6H PRN NAUSEA OR VOMITING Protocol Sennosides 1 tab 04/11/25 18:45 04/12/25 08:18 Senna/Docusate Sod 1 Tab Tablet PO 05/11/25 18:44 1 tab QDAY JARETT Administration Protocol Plan Mr. De Guzman is a 80-year-old female with past medical history of diabetes, hypertension, hyperlipidemia, asthma who presented to the ED due to generalized weakness. Admitted for management of hyponatremia. #Abnormal Uterine and vaginal bleeding #Pelvic mass DDX: Highest differential is metastatic leiomyosarcoma CT abdomen/pelvis: showed 15 x 11 x 10 cm pelvic mass extending into the abdomen. Pt states she is aware of the mass but cannot recall who told her and the details around it Patient endorses to vaginal spotting which she contributed to a UTI because every time she noticed and her primary care had given her a course of antibiotics for UTI and the bleeding went away. Pelvis US: Large pedunculated vascular mass left uterine body 10.5 x 11.3 x 17.2 cm Plan: -consult KILN PACKER, appreciate recommendations -Transfer initiated for Gyne-Oncology for further evaluation and possible surgical intervention #Euvolemic Hypoosmolar Hyponatremia- improving #Chronic hyponatremia Likely in the setting due to poor oral intake vs diuretic use (pt was taking combination pill of lisinopril-hydrochlorothiazide) Patient presented with 3 days of generalized weakness having dizziness and decreased PO intake for more than 2 months, patient also takes lisinopril-HCTZ Patient has had previous admissions for severe hyponatremia On admission sodium 120- corrected to 126 in first 24 hours (Hypertonic saline 500 mL x 1 in was given on admission and was discontinued to avoid over correction) Plan: -Will continue to monitor daily CMP -Fluid restriction to 1200cc daily -Strict ins and outs -Urine electrolytes WNL -Nephrology consulted, appreciate recommendations #Right-sided pleural effusion, s/p thoracentesis CXR: show large right pleural effusions -s/p thoracenthesis on 04/09- removed 1.9L fluid -Pleural fluid analysis is consistent with exudative pleural effusions DDx: low suspicion of pneumonia as pt denies sick contacts, recent illness, cough, fever and leukocyte count. Malignancy is of high suspicion as pt has a pelvic mass seen on imaging and endorses to vaginal spotting -Echo ordered- EF 75%, grade 1 diastolic disfunction Plan: -Cell cytology of the pleural fluid preliminary reports malignant cells #Cirrhosis #Liver lesion #Ascites -CT abdomen/Pelvis: shows cirrhosis, 13mm right lobe liver lesions and mild to moderate ascites -Pt is not in decompensation state: no coagulaopathy, AST, ALT and T. nory WNL -No abdominal tenderness Plan: -Pt will need outpatient follow up with group insurance special agent #Non-Insulin dependent type 2 Diabetes -Blood glucose on admission 106, A1c 5.9 -Pt home medications include: glipizide and metformin Plan: -Insulin sliding scale ordered -Hypoglycemia protocol ordered with acu-checks AC #Primary Hypertension #Hyperlipidemia -Pt is started on Amlodipine 10mg daily and resumed home lisinopril -Lipid panel WNL: Triglycerides 87, Cholesterol 159, LDL 78, HDL 64 #History of asthma ? DuoNebs as needed Health Maintenance: Disposition: Telemetry monitoring hyponatremia and s/p thoracenthesis , pending transfer for Gyne-oncology Diet: Carb consistent low with fluid restriction to 1200cc DVT prophylaxis: SCDs Gastric Ulcer prophylaxis: None CODE STATUS: Full code Assessment and plan discussed with my attending physician Dr. Oscar Caban (PGY-1)- Internal medicine resident Attending Provider Attestation/Addendum I have discussed and was present for the essential components of the history, physical examination, diagnosis, and treatment plan with the resident. I agree with the patient's care as documented by the resident and amended herein by me. Juliocesar Moore DO. Pending transfer to tertiary facility for high-level care, patient needing gynecology/oncology services. Cytology of the patient's pleural fluid is unfortunately positive for malignancy. Patient otherwise doing well, is mobile, sodium has up trended to 130, nephrology and OB has been consulted, appreciate any additional specialist recommendations. Although this document has been carefully reviewed, there may still be some phonetic and other typographical errors. These errors are purely grammatical due to imperfections in the software program and should not be construed in any way to compromise the substance of the patient's medical care during this visit.
[2025-04-12] MEDS: Magnesium Sulfate 4 GM Ivpb 4 GM/50 ML BAG IV (16:58)
[2025-04-12] MEDS: LORazepam 0.5 MG TABLET 1 MG PO (20:40)
[2025-04-13] VITALS (7 sets, daily range): BP systolic 123–143; BP diastolic 57–88; PULSE 75–85; RESP 18–24; TEMP 36.2–36.8; O2SAT 92–97; BMI 30.2
[2025-04-13] MEDS: INSULIN LISPRO (AdmeLOG) 1 UNIT/0.01 ML UNIT SC ×2 (07:40→12:08)
[2025-04-13] MEDS: amLODIPine BESYLATE 5 MG TABLET 10 MG PO (08:04)
[2025-04-13] MEDS: Lisinopril 20 MG TABLET PO (08:05)
[2025-04-13] MEDS: SENNA/DOCUSATE SOD 1 TAB TABLET PO (08:05)
--- NOTE | 2025-04-13 08:46 | PC.CC ---
Addendum entered by Andrey Story RN 04/13/25 10:09: 1008 informed bedside nurse that account support specialist time is 1200. Addendum entered by Andrey Story RN 04/13/25 10:07: 1006 called Summer at [facility] and informed account support specialist time is 1200. Addendum entered by Andrey Story RN 04/13/25 10:05: [address] [facility] through [employer]. Called [facility], spoke to [facility] and set up the transport. The account support specialist time is 1200. Addendum entered by Andrey Story RN 04/13/25 09:59: 0945 transfer packet is complete with CD inside including all signatures. Notified bedside nurse of the transfer packet and number to call for report. Original Note: 0846 spoke to Summer at [facility]. Patient has a bed. Patient is accepted at [facility]. Accepted by Dr. Zheng. Pt will be going to Unit 3D, room 3406. Report can be called at [phone].
--- NOTE | 2025-04-13 09:04 | ESDS_ITS ---
Planned Discharge Date 04/13/25 DS: Providers Provider Date of admission: 04/08/25 19:54 Primary care physician: Physician No Primary/Family Admitting Provider: Vanessa Caban MD Attending Provider on Admission: Derek Taylor MD Consults: 04/09/25 10:12 Consult to Spinning Bath Patroller Routine Comment: Right Thoracenthesis Consulting Provider: Srini Wharton I 04/10/25 07:59 Consult to Gynecology Routine Comment: Pelvic mass Consulting Provider: Antonella Jay 04/10/25 08:00 Consult to Nephrology Routine Comment: hyponatremia Consulting Provider: Andrew Garces 04/11/25 09:59 Referral - Director Biostatistics Stat Service Needed for Transfer: Gynecology Addl Comments:: Needs Fire Safety Manager-Onc for pelvic mass, recommended by OB-COMMUNITY DEVELOPMENT DIRECTOR 04/11/25 17:11 Referral Physical Therapy Routine Comment: Physician Instructions: Attending Provider on DC: Linnette Caban MD Discharging Provider: Linnette Caban MD DS: Diagnosis Problem List Completed Was Problem List Reviewed/Reconciled?: Yes Hospital Course Hospital Course Hospital course: Mr. De Guzman is a 80-year-old female with past medical history of non- insulin dependent type II diabetes, hypertension, hyperlipidemia and asthma presented to [facility] ED on 04/08/2025 due to generalized weakness. Patient was found to have sodium of 120, patient is admitted for management of hyponatremia. Patient was placed on fluid restrictions of 1200cc, which corrected the sodium to 130 over several days. On admission patient was also found to have significant abdominal distention, chest x-ray revealed bilateral pleural effusion worse on the right and CT of the abdomen pelvis [id number] x 11 x 10 cm pelvic mass extending into the abdomen and cirrhosis, 13mm right lobe liver lesions and mild to moderate ascites. Patient underwent right thoracentesis and 1.9 L pleural fluid was removed and sent for cytology. Cell cytology of the pleural fluid showed malignant cells. In-house HEAD END DESIZING MACHINE OPERATOR is consulted who reviewed imaging and cytology results. Per HEAD END DESIZING MACHINE OPERATOR the highest suspicion on differential diagnoses include metastatic leiomyosarcoma, the pelvic mass cannot be biopsied at our center. Patient needs COMMUNITY DEVELOPMENT DIRECTOR/Onc services which are not available at our center. Patient needs to transfer to a tertiary center for further evaluation and possible surgical intervention. Assessment and plan discussed with my attending physician Dr. Oscar Caban (PGY-1)- Internal medicine resident Time Spent with Patient Time attestation: Total time spent providing and/or coordinating discharge services: Time spent: Less than 30 minutes Exam Vital Signs Temp Pulse Resp BP Pulse Ox O2 Del Method 97.3 F 75 19 125/70 95 Room Air 04/13/25 08:00 04/13/25 08:05 04/13/25 08:00 04/13/25 08:05 04/13/25 08:00 04/13/25 08:00 Narrative Exam GENERAL: A&Ox3, elderly female, appears stated age, cooperative Awake, Not in acute distress NEURO: no focal neurological deficits noted HEENT: Atraumatic, Normocephalic. mucous membranes moist. Eyes open, symmetrical, & clear HEART: Normal Heart Sounds LUNGS: mild wheezing heard on auscultation bilaterally ABDOMEN: soft, distended, non-tender, bowel sounds heard, no guarding or rebound tenderness SKIN: No Rash or ecchymoses EXTREMITIES: No edema, tenderness, able to move all 4 extremities, pedal pulses palpated Discharge Plan Plan Patient Disposition: Xfer Other Facility Pt Being Transferred to: [facility] Disposition Comment: tertiary hospital Patient condition on transfer: Stable Prescriptions/Referrals Prescriptions/Med Rec: No Action sennosides-docusate sodium [Senna Plus] 8.6-50 mg Tablet 1 tab-cap PO BID PRN (Reason: Constipation) metformin 1,000 mg Tablet 1,000 mg PO QDAY Rx Instructions: take with meal meclizine 25 mg Tablet,Chewable 25 mg PO BID PRN (Reason: Dizziness) lisinopril 20 mg tablet 20 mg PO QDAY Qty: 30 0RF atorvastatin 20 mg tablet 20 mg PO HS Referrals: No Primary/Family,Physician [Primary Care Provider] - Patient/Caregiver Discharge Instructions Print Language: Danish Stand Alone Forms: Lesly Award Info., Patient Portal Info Letter Discharge Order Discharge Orders: Discharge (Routine); Ordered 04/13/25 Ordered By: Linnette Caban Quality Discharge Quality Measures VTE prophylaxis Attestestation MD Attestation I have discussed and was present for the essential components of the discharge history, physical examination, diagnosis, and discharge treatment plan with the resident. I agree with the patient's discharge care as documented by the resident and amended herein by me. Juliocesar Moore DO. 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 Kiel hurtado has been stable for many days pending discharge. Although this document has been carefully reviewed, there may still be some phonetic and other typographical errors. These errors are purely grammatical due to imperfections in the software program and should not be construed in any way to compromise the substance of the patient's medical care during this visit.
[2025-04-13 10:20] LABS: Basophils # (Auto) 0.1 Thou/mm3 (0.0-0.2); Basophils % (Auto) 1 % (0-2.5); Eosinophils # (Auto) 0.3 Thou/mm3 (0.0-0.5); Eosinophils % (Auto) 3 % (0-10); Hemoglobin 11.4 g/dL (12.0-16.0); Immature Granulocytes % (Auto) 1 % (0-0); Immature Granulocytes Auto 0.06 Thou/mm3 (0.00-0.00); Lymphocytes # (Auto) 1.4 Thou/mm3 (1.0-4.8); Lymphocytes % (Auto) 12 % (10-50); Mean Corpuscular HGB Conc 34.5 g/dl (31.0-37.0); Mean Corpuscular Hemoglobin 27.8 pg (25.0-35.0); Mean Corpuscular Volume 81 fL (80-100); Monocytes # (Auto) 0.8 Thou/mm3 (0.0-0.8); Monocytes % (Auto) 7 % (0-12); Neutrophils # (Auto) 8.9 Thou/mm3 (1.8-7.7); Neutrophils % (Auto) 77 % (37-80); Nucleated Red Blood Cell % 0 /100 WBC (0); Platelet Count 323 Thou/mm3 (140-440); RDW Standard Deviation 43.3 fL (36.4-46.3); White Blood Count 11.6 Thou/mm3 (3.6-11.0)
--- NOTE | 2025-04-13 10:30 | PC.NURSE ---
patient will be transferred to [facility]. report given to [facility] .
[2025-04-13 10:46] LABS: Albumin, Serum 3.8 gm/dL (3.4-4.8); Anion Gap 8 (7-16); BUN/Creatinine Ratio 40 Ratio (12-20); Blood Urea Nitrogen 28 mg/dL (9-23); Calcium 9.1 mg/dL (8.3-10.6); Calcium (Corrected) 9.3 mg/dL (8.5-10.1); Carbon Dioxide 23.3 mMol/L (20.0-31.0); Chloride 102 mMol/L (98-107); Creatinine (Component) 0.7 mg/dL (0.6-1.3); Estimated Creatinine Clearance 55.6 mL/min (>60); Glucose 198 mg/dL (74-106); Osmolality,Calculated 277 (275-295); Phosphorous 3.4 mg/dL (2.4-5.1); Potassium 4.8 mMol/L (3.4-5.1); Sodium 133 mMol/L (136-145); eGFR > 60 See Note
--- NOTE | 2025-04-13 12:39 | PD.RESEVENT ---
Documentation for date of: 04/13/25 Event Note Event Note: Received a call from pathologist Dr. Simms regarding Ms. De Guzman cytology report. Previously indicating differential diagnosis based on imaging of the pelvis would be the pelvic mass to be metastatic leomyosarcoma however after completed cytology report other differential cells are likely malignant pancreatic cells and other highest differentials do include upper GI malignancy.
--- NOTE | 2025-04-13 12:44 | PC.NURSE ---
[facility] [place] [place] [facility] to go [facility], to left forearm gauge 20 intact at time of transfer . [facility] [place] requested to leave iv on.
--- NOTE | 2025-04-13 16:00 | PC.SS ---
Per rounding note, pt will d/c to [facility] and informed shrimp picker time is 1200.
[2025-04-15 06:55] LABS: Osmolality, Urine* 464 mOsm/kg (50-1200)
== END 2025-04-13 12:25 | disposition other institution (70) | DRG 640 ==
LOC: SERX 18:10 → SERHOLD 20:22 → S2NX 23:44
PROVIDERS: Internal Medicine; Physician Assistant Medical; Student in an Organized Health Care Education/Training Program; Admitting Provider Student in an Organized Health Care Education/Training Program; Emergency Provider Family Medicine; Visit Provider Obstetrics & Gynecology
DX: E87.1 Hypo-osmolality and hyponatremia (principal); J18.9 Pneumonia, unspecified organism; N39.0 Urinary tract infection, site not specified; J91.0 Malignant pleural effusion; E11.9 Type 2 diabetes mellitus without complications; I11.0 Hypertensive heart disease with heart failure; I50.9 Heart failure, unspecified; E78.5 Hyperlipidemia, unspecified; J45.909 Unspecified asthma, uncomplicated; D50.9 Iron deficiency anemia, unspecified; R19.00 Intra-abdominal and pelvic swelling, mass and lump, unspecified site; F41.9 Anxiety disorder, unspecified; K74.60 Unspecified cirrhosis of liver; K80.20 Calculus of gallbladder without cholecystitis without obstruction; Z79.84 Long term (current) use of oral hypoglycemic drugs
CPT/HCPCS: 36415; 71045; 74176; 76856; 80053; 80069; 81001; 82150; 82436; 82945; 82947; 83036; 83615; 83735; 83880; 83935; 84100; 84132; 84133; 84157; 84295; 84300; 84439; 84443; 84484; 85025; 85610; 85730; 87070; 87075; 87205; 89051; 93005; 93306; 94640; 96360; 96361; 97162; 99285; A9270; J1815; J3475; J7030; J7131